=== PATIENT | female | born 1940 | race Caucasian/White ===

== ENCOUNTER → 2017-12-25 09:54 | Outpatient (BNVA) | payer MEDICARE, OTHER, SELFPAY | PROVIDERS: PCP Internal Medicine; Visit Provider Psychiatry & Neurology Neurology | DX: G40.909 Epilepsy, unspecified, not intractable, without status epilepticus (principal); M81.0 Age-related osteoporosis without current pathological fracture | CPT/HCPCS: 99213 ==

== ENCOUNTER → 2018-06-24 09:56 | Outpatient (BNVA) | payer MEDICARE, OTHER, SELFPAY | PROVIDERS: PCP Internal Medicine; Visit Provider Psychiatry & Neurology Neurology | DX: G40.909 Epilepsy, unspecified, not intractable, without status epilepticus (principal) | CPT/HCPCS: 99214 ==

== ENCOUNTER 2018-08-06 18:25 | Emergency (ER) | payer MEDICARE, OTHER, SELFPAY ==
[2018-08-06 18:37] VITALS: BP 131/85; PULSE 85; RESP 18; TEMP 36.8; O2SAT 95
--- NOTE | 2018-08-06 19:01 | W.ED.GENAD ---
Discharge Plan Disposition Patient Disposition: HOME Condition: Good Discharge Details Chief Complaint: Laceration Clinical Impression: Finger laceration Primary Care Provider: Nadya Bland ED Provider: Calvin Foreman Home Meds and New Rx's Prescriptions: No Action aspirin 81 mg tablet,chewable 81 mg PO DAILY RF: 0 alendronate [Fosamax] 70 mg tablet 70 mg PO QWEEK RF: 0 levetiracetam 750 mg tablet 750 mg PO BID Qty: 180 RF: 3 loratadine [Claritin] 10 MG tablet 10 mg PO DAILY RF: 0 sertraline 100 mg tablet 100 mg PO DAILY RF: 0 latanoprost 0.005 % Drops 1 drp ophthalmic (eye) HS RF: 0 Discharge Instructions Instructions: Care For Your Stitches (ED), Finger Laceration (ED) Additional Instructions: Please leave the dressing on for 24 hours, then you may remove and begin cleaning the wound at least twice a day with soap and water. Do not directly soak the area. Watch for any signs of infection and return if any increasing redness, swelling, pain, drainage. Please return in 7 to 10 days to have the sutures removed. If you notice any worsening of your symptoms, or any new symptoms such as vomiting, diarrhea, fever, chills, shortness of breath, chest pain, numbness, weakness, or fainting , please return immediately to the emergency department for reevaluation. Please follow up with your primary care provider as soon as possible for reassessment and reevaluation. As always, it was a pleasure participating in your medical care today. Referrals: Nadya Bland [Primary Care Provider] - Medical Decision Making This is a pleasant 78-year-old with a past medical history of seizures who presents today for evaluation after a mechanical fall. Patient fell and cut her right hand index finger with a 1 cm laceration and also hit her right breast. Physical exam demonstrates no bruising or significant abnormality of the chest. No clinical evidence of pneumothorax or severe rib fracture. No evidence of hematoma. Tetanus has been updated. Laceration is mild and superficial, with no evidence of tendon involvement, and she is neurovascularly intact distal to the site of laceration. The area was cleaned and irrigated with copious amounts of normal saline, chlorhexidine, and scrubbed appropriately and vigorously. The area was anesthetized with 2 mL's of 1% lidocaine without epinephrine the area was then sutured with 2 simple interrupted sutures using 5-0 nylon. Patient tolerated procedure well. Patient will be discharged home with close follow-up. We discussed red flags which return. No clinical evidence of fracture on exam with no significant bone or joint tenderness peer I have extensively reviewed the treatment plan and discharge instructions with the patient. I have addressed all patient concerns at this time. The patient was made aware of what symptoms to monitor for that would warrant a return to the emergency department. Discussed the plan with the patient, they demonstrate verbal understanding and agreement with our assessment and plan at this time. HPI General Date/Time Provider Initiated Documentation: 08/06/18 18:27. HPI Narrative: This is a pleasant 78-year-old female with a past medical history of epilepsy, not on any blood thinners who presents today for evaluation after a fall. Tetanus is not up-to-date. Patient states that she was walking, tripped and had a mechanical fall where she hit her right breast, as well as cutting right dominant hand on the middle finger. Patient denies any numbness or tingling in fingers she denies any difficulty moving it. She denies any chest pain, pleuritic chest pain, shortness of breath. She denies any cough, fever, chills. She did not hit her head. She denies any headache, vision changes. She has no other complaints at this time. No other modifying factors. She denies having any seizure. Related Data Home Medications Medication Instructions Recorded Confirmed loratadine [Claritin] 10 mg PO DAILY tab-cap 09/13/17 08/06/18 alendronate 70 mg tablet 70 mg PO QWEEK 12/25/17 08/06/18 aspirin 81 mg chewable tablet 81 mg PO DAILY 12/25/17 08/06/18 sertraline 100 mg tablet 100 mg PO DAILY tab 12/25/17 08/06/18 levetiracetam 750 mg tablet 750 mg PO BID #180 tab 06/24/18 08/06/18 latanoprost 1 drp OPHTHALMIC (EYE) HS 08/06/18 08/06/18 Previous Rx's Medication Instructions Recorded levetiracetam 750 mg tablet 750 mg PO BID #180 tab 06/24/18 Allergies Allergy/AdvReac Type Severity Reaction Status Date / Time chlorpromazine HCl Allergy Unverified 08/06/18 18:41 [From Thorazine] penicillin Allergy Unverified 08/06/18 18:41 General Stated Complaint: Laceration ANITHA: 3 Review of Systems Review of Systems All systems reviewed & are unremarkable except as noted in HPI and below PFSH Social History Smoking/Tobacco Use Status: Never Alcohol Intake: never Drug use: Never Substance use type: does not use Number of Children: 1 Do you feel safe in your relationship?: Yes Additional Social history: She has one son. Niece Rupinder often helps/involved. No smoking, ETOH, or illicit drug use. Exam Narrative Exam Narrative: 1.Const: Well-nourished, Well-developed, appearing stated age 2.Eyes: PERRL, no conjunctival injection, and symmetrical lids. 3.ENT: Atraumatic external nose and ears. Moist MM. Neck: Symmetric, trachea midline, No thyromegaly. There is no evidence of raccoon eyes, jones sign, CSF rhinorrhea, mastoid tenderness, cranial crepitus, hemotympanum, exophthalmos, or hyphema. Patient demonstrates intact dentition with no signs of tooth avulsion or fracture, no signs of jaw deformity, no evidence of a LeFort's fracture, with an intact palate, nose and orbital region. There is no evidence of a nasal septal hematoma. No proptosis. Jaw closes symmetrically. Airway is clear. 4.CVS: +S1/S2, No murmurs or gallops. Peripheral pulses 2+ and equal in all extremities. Brisk capillary refill in all extremities. 5.RESP: Airway clear, no obstructions. No abrasions or ecchymosis. Chest movement symmetric with respirations. No chest wall tenderness. Trachea midline. No crepitus. No step offs. No paradoxical movements. Lungs are clear to auscultation bilaterally. No rales, rhonchi, wheezing or stridor. Breath sound symmetric. No Sucking chest wounds. No clinical evidence of significant chest trauma. 6.GI: Soft, Nontender/Nondistended, No hepatosplenomegaly. No guarding or rebound. 7.MSK: Normocephalic/Atraumatic, Extremities w/o deformity or ttp No cyanosis or clubbing, Normal movement of all extremities focused right ankle symmetrically palpable radial and ulnar pulses. Capillary refill less than 2 seconds to all digits. Intact sensation to light touch of the radial, median and ulnar nerves demonstrated by testing in the dorsal web space of the thumb, the distal palmar aspect of the index finger, and the lateral surface of the fifth finger. 2 point discrimination intact to 5mm (up to 6mm can be normal in digits 3-5) of discrimination in the affected digit. 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 Intact recurrent median nerve as demonstrated by ability to move thumb fully through opposition, abduction and flexion. No snuffbox tenderness. 8.Skin: Warm, Dry. Small 1 cm linear laceration on the lateral aspect of her middle finger between the interphalangeal joint and the DIP joint. No evidence of tendon involvement. No active bleeding. 9.Neuro: documentation liaison II-XII grossly intact. Sensation grossly intact, no focal neurologic deficits. 10.Psych: (AAO) x3. Appropriate mood and affect Course Vital Signs Temperature 36.8 C 08/06/18 18:37 Pulse 85 08/06/18 18:37 Respiratory Rate 18 08/06/18 18:37 Blood Pressure 131/85 08/06/18 18:37 Pulse Oximetry 95 08/06/18 18:37 Temperature 36.8 C 08/06/18 18:37 Temperature Source Temporal Artery Scan 08/06/18 18:37 Pulse 85 08/06/18 18:37 Respiratory Rate 18 08/06/18 18:37 Respiratory Effort Non-Labored 08/06/18 18:43 Blood Pressure 131/85 08/06/18 18:37 Blood Pressure Position Sitting 08/06/18 18:37 Pulse Oximetry 95 08/06/18 18:37 Oxygen Delivery Method Room Air 08/06/18 18:37 Oxygen Flow Rate 0 08/06/18 18:37 Pain Level 7 08/06/18 18:37
== END 2018-08-06 19:13 | disposition home or self-care (01) ==
PROVIDERS: Emergency Provider Student in an Organized Health Care Education/Training Program; PCP Internal Medicine
DX: S61.210A Laceration without foreign body of right index finger without damage to nail, initial encounter (principal); W01.0XXA Fall on same level from slipping, tripping and stumbling without subsequent striking against object, initial encounter
CPT/HCPCS: 12001; 90471

== ENCOUNTER 2018-08-12 12:39 | Emergency (ER) | payer MEDICARE, SELFPAY ==
[2018-08-12 12:42] VITALS: BP 145/81; PULSE 76; RESP 18; TEMP 37; O2SAT 96
--- NOTE | 2018-08-12 13:18 | ED.GENADUL_ITS ---
Discharge Plan Disposition Patient Disposition: HOME Condition: Good Discharge Details Chief Complaint: GenMedical Clinical Impression: Visit for suture removal Primary Care Provider: Nadya Bland ED Provider: Jai Mistry Meds and New Rx's Prescriptions: Continued aspirin 81 mg tablet,chewable 81 mg PO DAILY RF: 0 alendronate [Fosamax] 70 mg tablet 70 mg PO QWEEK RF: 0 levetiracetam 750 mg tablet 750 mg PO BID Qty: 180 RF: 3 loratadine [Claritin] 10 MG tablet 10 mg PO DAILY RF: 0 sertraline 100 mg tablet 100 mg PO DAILY RF: 0 latanoprost 0.005 % Drops 1 drp ophthalmic (eye) HS RF: 0 Discharge Instructions Additional Instructions: Continue to keep the area clean and use antibiotic ointment until completely healed. Return if any signs of infection. Referrals: [facility] [Provider Group] Medical Decision Making 2 sutures removed. Wound has healed nicely. Patient is discharged home to return to ED if any problems or signs of infection. HPI General Mode of arrival: ambulatory . Date/Time Provider Initiated Documentation: 08/12/18 13:06 . Limitations to Documentation: no limitations . Information obtained by: patient . HPI Narrative: Patient presents for suture removal. She was seen here on the with a laceration to the right finger. It has healed well. She has no complaints. There is no pain, redness, drainage, numbness. Related Data Home Medications Medication Instructions Recorded Confirmed loratadine [Claritin] 10 mg PO DAILY tab-cap 09/13/17 08/06/18 alendronate 70 mg tablet 70 mg PO QWEEK 12/25/17 08/06/18 aspirin 81 mg chewable tablet 81 mg PO DAILY 12/25/17 08/06/18 sertraline 100 mg tablet 100 mg PO DAILY tab 12/25/17 08/06/18 levetiracetam 750 mg tablet 750 mg PO BID #180 tab 06/24/18 08/06/18 latanoprost 1 drp OPHTHALMIC (EYE) HS 08/06/18 08/06/18 Previous Rx's Medication Instructions Recorded levetiracetam 750 mg tablet 750 mg PO BID #180 tab 06/24/18 Allergies Allergy/AdvReac Type Severity Reaction Status Date / Time chlorpromazine HCl Allergy Unverified 08/06/18 18:41 [From Thorazine] penicillin Allergy Unverified 08/06/18 18:41 General Stated Complaint: GenMedical ANITHA: 5 Review of Systems Constitutional Denies fever(s) Integumentary/Breasts Denies erythema and Reports wounds [facility] Medical History History of pulmonary embolism (Chronic) Osteoporosis (Chronic) Mild cognitive impairment (Chronic) Glaucoma (Chronic) Depression with anxiety (Chronic) Epilepsy (Acute 06/09/15) Surgical History History of carpal tunnel release (Acute) History of repair of hiatal hernia (Acute) S/P cholecystectomy (Acute) Social History Smoking/Tobacco Use Status: Never Alcohol Intake: never Drug use: Never Substance use type: does not use Number of Children: 1 Do you feel safe at home: No Do you feel safe in your relationship?: Yes Additional Social history: She has one son. Niece Rupinder often helps/involved. No smoking, ETOH, or illicit drug use. Pt is living at [facility] and is feeling unsafe due to neighbors being loud and pounding on goodman and doors. Exam Const General: cooperative, comfortable and no acute distress Skin Trauma: laceration (Laceration on finger has completely healed. No infection.) Extrem Other: Normal motor function and sensory of the right hand. No deficit related to the laceration. Course Vital Signs Temperature 98.6 F 08/12/18 12:42 Pulse 76 08/12/18 12:42 Respiratory Rate 18 08/12/18 12:42 Blood Pressure 145/81 H 08/12/18 12:42 Pulse Oximetry 96 08/12/18 12:42 Temperature 98.6 F 08/12/18 12:42 Pulse 76 08/12/18 12:42 Respiratory Rate 18 08/12/18 12:42 Respiratory Effort 08/12/18 12:42 Blood Pressure 145/81 H 08/12/18 12:42 Pulse Oximetry 96 08/12/18 12:42 Oxygen Delivery Method Room Air 08/12/18 12:42 Oxygen Flow Rate 0 08/12/18 12:42 Pain Level 0 08/12/18 12:42
== END 2018-08-12 13:50 | disposition home or self-care (01) ==
PROVIDERS: Emergency Provider Emergency Medicine; PCP Internal Medicine
DX: S61.212D Laceration without foreign body of right middle finger without damage to nail, subsequent encounter (principal); X58.XXXD Exposure to other specified factors, subsequent encounter; Z48.02 Encounter for removal of sutures

== ENCOUNTER → 2018-09-16 11:00 | Outpatient (BNVA) | payer MEDICARE, SELFPAY | PROVIDERS: PCP Internal Medicine; Visit Provider Psychiatry & Neurology Neurology | DX: G40.909 Epilepsy, unspecified, not intractable, without status epilepticus (principal); G31.84 Mild cognitive impairment of uncertain or unknown etiology; F41.8 Other specified anxiety disorders | CPT/HCPCS: 99214 ==

== ENCOUNTER 2018-10-28 06:08 | Emergency (ER) | payer MEDICARE, OTHER, SELFPAY ==
[2018-10-28 06:20] VITALS: BP 132/72; PULSE 58; RESP 20; TEMP 36.6; O2SAT 96
[2018-10-28] MEDS: Meclizine 25 MG TAB (06:39)
--- NOTE | 2018-10-28 06:43 | W.ED.GENAD ---
Discharge Plan Disposition Patient Disposition: HOME Condition: Good Discharge Details Chief Complaint: Dizzy/Sync Clinical Impression: Peripheral vertigo Primary Care Provider: Nadya Bland ED Provider: Calvin Foreman Home Meds and New Rx's Prescriptions: New meclizine 25 mg tablet 25 mg PO TID Qty: 14 RF: 0 No Action aspirin 81 mg tablet,chewable 81 mg PO DAILY RF: 0 alendronate [Fosamax] 70 mg tablet 70 mg PO QWEEK RF: 0 levetiracetam 750 mg tablet 750 mg PO BID Qty: 180 RF: 3 loratadine [Claritin] 10 MG tablet 10 mg PO DAILY RF: 0 sertraline 100 mg tablet 100 mg PO DAILY RF: 0 latanoprost 0.005 % Drops 1 drp ophthalmic (eye) HS RF: 0 Discharge Instructions Instructions: Benign Paroxysmal Positional Vertigo (ED) Additional Instructions: You have peripheral vertigo. Please drink plenty of water every day, please take the meclizine as directed. If you notice any worsening of your symptoms, or any new symptoms such as vomiting, diarrhea, fever, chills, shortness of breath, chest pain, numbness, weakness, or fainting , please return immediately to the emergency department for reevaluation. Please follow up with your primary care provider as soon as possible for reassessment and reevaluation. As always, it was a pleasure participating in your medical care today. Referrals: Nadya Bland [Primary Care Provider] - Medical Decision Making 78-year-old female with a past medical history of osteoporosis, as well as seizures for which she takes Keppra but slight seizures for years, presents today for evaluation of dizziness. She woke up this morning and felt fine, however when she sat up quickly turned her head she noticed significant room spinning sensation. She denies any tinnitus. Physical exam demonstrates no concerning cerebellar events, ambulation is stable. She does have notable right-sided horizontal nystagmus that is fatigable. A positive head impulse test. Negative test of skew. Signs and symptoms are clinically consistent with peripheral vertigo. Symptoms made worse with Tati-Hallpike maneuver. Patient was given a 250 cc bolus, in conjunction with Zofran and meclizine. Patient is feeling much better at this time. Signs and symptoms are consistent with a peripheral etiology and inconsistent with a central etiology no clinical evidence of stroke. Patient will be discharged home. I have extensively reviewed the treatment plan and discharge instructions with the patient. I have addressed all patient concerns at this time. The patient was made aware of what symptoms to monitor for that would warrant a return to the emergency department. Discussed the plan with the patient, they demonstrate verbal understanding and agreement with our assessment and plan at this time. EKG 09/07/2013 Rate 62, intervals normal, sinus rhythm, no significant ST elevations or depressions, there is a T wave inversion in V1. No Q waves. HPI General Date/Time Provider Initiated Documentation: 10/28/18 06:43. HPI Narrative: This is a 78-year-old female with a past medical history of osteoporosis, epilepsy on Keppra, and daily aspirin. She has no history of stroke. She presents today for evaluation of dizziness. She states that this morning when she woke up she felt okay when she sat up quickly she became notably dizzy with room spinning sensation. She denies any tinnitus. She denies any headache, chest pain, shortness of breath, syncope or near syncope. She denies any numbness tingling or weakness or history of stroke. She has no other complaints at this time. She has had an episode like this in the distant past. Of note she feels that it has been hot and she has not been drinking much fluids lately. Related Data Home Medications Medication Instructions Recorded Confirmed loratadine [Claritin] 10 mg PO DAILY tab-cap 09/13/17 09/16/18 alendronate 70 mg tablet 70 mg PO QWEEK 12/25/17 09/16/18 aspirin 81 mg chewable tablet 81 mg PO DAILY 12/25/17 09/16/18 sertraline 100 mg tablet 100 mg PO DAILY tab 12/25/17 09/16/18 levetiracetam 750 mg tablet 750 mg PO BID #180 tab 06/24/18 09/16/18 latanoprost 1 drp OPHTHALMIC (EYE) HS 08/06/18 09/16/18 meclizine 25 mg PO TID #14 tab 10/28/18 Previous Rx's Medication Instructions Recorded levetiracetam 750 mg tablet 750 mg PO BID #180 tab 06/24/18 meclizine 25 mg PO TID #14 tab 10/28/18 Allergies Allergy/AdvReac Type Severity Reaction Status Date / Time chlorpromazine HCl Allergy Unverified 09/16/18 11:21 [From Thorazine] penicillin Allergy Unverified 09/16/18 11:21 General Stated Complaint: Dizzy/Sync ANITHA: 5 Review of Systems Review of Systems All systems reviewed & are unremarkable except as noted in HPI and below PFSH Social History Smoking/Tobacco Use Status: Never Alcohol Intake: never Drug use: Never Substance use type: does not use Number of Children: 1 Do you feel safe at home: No Do you feel safe in your relationship?: Yes Additional Social history: She has one son. Niece Rupinder often helps/involved. No smoking, ETOH, or illicit drug use. Pt is living at [facility] and is feeling unsafe due to neighbors being loud and pounding on goodman and doors. Exam Narrative Exam Narrative: 1.Const: Well-nourished, Well-developed, appearing stated age 2.Eyes: PERRL, no conjunctival injection, and symmetrical lids. 3.ENT: Atraumatic external nose and ears. Moist MM. Neck: Symmetric, trachea midline, No thyromegaly. 4.CVS: +S1/S2, No murmurs or gallops. Peripheral pulses 2+ and equal in all extremities. Brisk capillary refill in all extremities. 5.RESP: Unlabored respiratory effort. Clear to auscultation bilaterally. No wheezes rales or rhonchi 6.GI: Soft, Nontender/Nondistended, No hepatosplenomegaly. No guarding or rebound. 7.MSK: Normocephalic/Atraumatic, Extremities w/o deformity or ttp No cyanosis or clubbing, Normal movement of all extremities 8.Skin: Warm, Dry. No rashes or lesions. 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 Sensation grossly intact, no focal neurologic deficits. All 6 cardinal planes of vision are fully intact. No evidence of rotatory or vertical nystagmus. The patient demonstrated a normal [id number], good dexterity. There was no evidence of dysdiadochokinesia. Patient was able to ambulate without difficulty. There was no wide-based gait. Romberg, and [id number] are both normal on testing. Sensation was intact bilaterally as well as muscle strength bilaterally for all extremities. Patient was able to verbalize butter cup with no slurring, or miss pronunciation. Cerebellar function testing is normal. The patient demonstrates a normal hints exam with no findings concerning for a central event. No vertical nystagmus. The patient does have mild to moderate horizontal nystagmus, worsened on the right. It is fatigable. the head impulse test is negative for any significant central abnormality, however she does have notable positivity with movement to the right, suggestive of a peripheral etiology. Normal test of skew. No suggestion of a central cerebellar event. Signs and symptoms are consistent with peripheral vertigo 10.Psych: (AAO) x3. Appropriate mood and affect Course Vital Signs Temperature 36.6 C 10/28/18 06:20 Pulse 58 L 10/28/18 06:20 Respiratory Rate 20 10/28/18 06:20 Blood Pressure 132/72 10/28/18 06:20 Pulse Oximetry 96 10/28/18 06:20 Temperature 36.6 C 10/28/18 06:20 Temperature Source Temporal Artery Scan 10/28/18 06:20 Pulse 58 L 10/28/18 06:20 Respiratory Rate 20 10/28/18 06:20 Respiratory Effort 10/28/18 06:20 Blood Pressure 132/72 10/28/18 06:20 Blood Pressure Position Supine 10/28/18 06:20 Pulse Oximetry 96 10/28/18 06:20 Oxygen Delivery Method Room Air 10/28/18 06:20 Oxygen Flow Rate 0 10/28/18 06:20
[2018-10-28 07:20] VITALS: BP 138/70; PULSE 61; RESP 16; TEMP 36.6; O2SAT 96
== END 2018-10-28 07:20 | disposition home or self-care (01) ==
LOC: ER 07:17
PROVIDERS: Emergency Provider Student in an Organized Health Care Education/Training Program; PCP Internal Medicine
DX: H81.391 Other peripheral vertigo, right ear (principal); G43.909 Migraine, unspecified, not intractable, without status migrainosus
CPT/HCPCS: 93005; 99283; 93010; J2405

== ENCOUNTER 2018-12-08 13:15 | Emergency (ER) | payer MEDICARE, OTHER, SELFPAY ==
[2018-12-08 13:19] VITALS: BP 153/86; PULSE 66; RESP 16; TEMP 36.6; O2SAT 94
--- NOTE | 2018-12-08 13:33 | DI.RAD_ITS ---
SYMPTOMS/DIAGNOSIS: ANTERIOR LOWER CHEST PAIN S/P FALL PA AND LATERAL CHEST: Comparison is made with April,. The heart size is normal. The aorta shows some calcification and tortuosity. The lungs are suboptimally inflated. There is a question of some small areas of bilateral patchy density, nonspecific. No pneumothorax or acute rib fracture is seen. There are degenerative changes of the thoracic spine. IMPRESSION: Questionable bilateral pulmonary densities. A follow-up exam could be considered. No pneumothorax is seen.
--- NOTE | 2018-12-08 13:35 | W.ED.GENAD ---
Discharge Plan Disposition Patient Disposition: HOME Discharge Details Chief Complaint: Chest/Rib Clinical Impression: Bilateral contusion of ribs, Fall in elderly patient, Contusion of both lungs Primary Care Provider: Nadya Bland ED Provider: Luigi Mike Home Meds and New Rx's Prescriptions: Continued aspirin 81 mg tablet,chewable 81 mg PO DAILY RF: 0 alendronate [Fosamax] 70 mg tablet 70 mg PO QWEEK RF: 0 levetiracetam 750 mg tablet 750 mg PO BID Qty: 180 RF: 3 loratadine [Claritin] 10 MG tablet 10 mg PO DAILY RF: 0 sertraline 100 mg tablet 100 mg PO DAILY RF: 0 latanoprost 0.005 % Drops 1 drp ophthalmic (eye) HS RF: 0 Discharge Instructions Instructions: Fall Prevention for Older Adults (ED), Rib Contusion (ED) Additional Instructions: Please take acetaminophen (tylenol) - 650mg every 6 hours by mouth as needed for pain. Please contact your primary care physician to arrange follow-up. Call sunday. Return to the ER immediately for any worsening or new concerning symptoms. Referrals: Nadya Bland [Primary Care Provider] - Discharge Data Discharge Date/Time-TO BE ENTERED AT DEPARTURE: 12/08/18 14:52 Medical Decision Making 13:40 --78-year-old female presents after mechanical fall having landed in a prone position with discomfort anterior lower ribs. Patient had mild posterior head impact when she rolled over to a supine position and bumped the back of her head on the ground. She did not lose consciousness and has no headache at this time. Patient has focal tenderness over her lower anterior ribs bilaterally. Abdominal exam is benign. Consider rib fracture versus rib contusion. Will obtain chest x-ray to rule out pneumothorax although lung sounds are clear bilaterally. 14:28 --chest x-ray interpreted by radiology: Patchy bilateral lung opacities, probable atelectasis, contusion is considered unlikely. Patient is remained stable here on reassessment. Usual and customary discharge instructions provided for chest wall contusion. HPI General Mode of arrival: ambulatory. Date/Time Provider Initiated Documentation: 12/08/18 13:22. Limitations to Documentation: no limitations. Information obtained by: patient. HPI Narrative: 78-year-old female presents with chief complaint of chest pain. Patient tripped on a rug at home fell forward and landed on her anterior chest. After she fell she did roll over and bumped the back of her head on the ground. She did not lose consciousness has no headache. Patient is not on any anticoagulants. Her chief complaint here is anterior bilateral lower rib pain. Pain is moderate. Worse on palpation of her lower ribs. She denies associated abdominal pain. Related Data Home Medications Medication Instructions Recorded Confirmed loratadine [Claritin] 10 mg PO DAILY tab-cap 09/13/17 12/08/18 alendronate 70 mg tablet 70 mg PO QWEEK 12/25/17 12/08/18 aspirin 81 mg chewable tablet 81 mg PO DAILY 12/25/17 12/08/18 sertraline 100 mg tablet 100 mg PO DAILY tab 12/25/17 12/08/18 levetiracetam 750 mg tablet 750 mg PO BID #180 tab 06/24/18 12/08/18 latanoprost 1 drp OPHTHALMIC (EYE) HS 08/06/18 12/08/18 Previous Rx's Medication Instructions Recorded levetiracetam 750 mg tablet 750 mg PO BID #180 tab 06/24/18 Allergies Allergy/AdvReac Type Severity Reaction Status Date / Time chlorpromazine HCl Allergy Unverified 12/08/18 13:21 [From Thorazine] penicillin Allergy Unverified 12/08/18 13:21 General Stated Complaint: Chest/Rib ANITHA: 3 Review of Systems Constitutional Denies headache(s) ENT Denies headache(s) Cardiovascular Denies syncope and Denies dyspnea Respiratory Denies dyspnea Gastrointestinal Denies abdominal pain and Denies nausea Musculoskeletal Reports as per HPI Neurologic Denies syncope and Denies headache(s) [facility] Medical History Depression with anxiety (Chronic) Epilepsy (Acute 06/09/15) Glaucoma (Chronic) History of pulmonary embolism (Chronic) s/p Eliquis [id number]. Mild cognitive impairment (Chronic) Osteoporosis (Chronic) Surgical History History of carpal tunnel release (Acute) right History of repair of hiatal hernia (Acute) S/P cholecystectomy (Acute) Family History Father Heart disease Mother Breast cancer Social History Smoking/Tobacco Use Status: Never Alcohol Intake: never Drug use: Never Substance use type: does not use Number of Children: 1 Do you feel safe at home: Yes Do you feel safe in your relationship?: Yes Additional Social history: She has one son. Niece Rupinder often helps/involved. No smoking, ETOH, or illicit drug use. Pt is living at [facility] and is feeling unsafe due to neighbors being loud and pounding on goodman and doors. Exam Const General: cooperative and no acute distress HENMT Head: normocephalic and atraumatic Mouth: moist mucous membranes Eyes Conjunctivae: normal conjunctivae Sclera: normal sclerae EOM: EOM intact bilaterally Neck Neck: full ROM, trachea midline, supple and nontender Chest Chest: no crepitus and localized rib tenderness with anteroposterior compression (bilateral lower anterior) Resp Auscultation: clear to auscultation bilaterally, no rales, no rhonchi and no wheezes Cardio Jugular venous pressure: no JVD Rate: regular rate and not tachycardic Rhythm: regular rhythm GI Palpation: soft, not firm, no guarding, no masses, not rigid and nontender Auscultation: normal bowel sounds Back/Spine/Pelvis Cervical Spine: cervical ROM normal and No cervical spinal tenderness Thoracic/Lumbar Spine: thoracic and lumbar spine normal to inspection Pelvis: no pain with lateral compression Skin General skin exam: no rashes or lesions noted Neuro General: alert, awake, oriented x3 and tone normal Extrem General: no edema Right lower extremity: hip/thigh Details: normal ROM; no tenderness Left lower extremity: hip/thigh Details: normal ROM; no tenderness Psych Mental Status: mental status grossly normal Course Vital Signs Temperature 36.6 C 12/08/18 13:19 Pulse 66 12/08/18 13:19 Respiratory Rate 16 12/08/18 13:19 Blood Pressure 153/86 H 12/08/18 13:19 Pulse Oximetry 94 L 12/08/18 13:19 Temperature 36.6 C 12/08/18 13:19 Temperature Source Temporal Artery Scan 12/08/18 13:19 Pulse 66 12/08/18 13:19 Respiratory Rate 16 12/08/18 13:19 Respiratory Effort Non-Labored 12/08/18 13:26 Respiratory Depth Normal 12/08/18 13:23 Blood Pressure 153/86 H 12/08/18 13:19 Blood Pressure Position Supine 12/08/18 13:19 Pulse Oximetry 94 L 12/08/18 13:19 Oxygen Delivery Method Room Air 12/08/18 13:19 Oxygen Flow Rate 0 12/08/18 13:19 Pain Level 9 12/08/18 13:23
[2018-12-08] MEDS: Acetaminophen 325 MG TAB 650 MG PO (13:42)
--- NOTE | 2018-12-08 14:23 | DI.VRAD_ITS ---
EXAM: XR Chest, 2 Views EXAM DATE/TIME: 12/08/2018 1:34 PM CLINICAL HISTORY: 78 years old, female; Patient HX: Fall, anterior chest pain TECHNIQUE: Imaging protocol: XR of the chest, 2 views. COMPARISON: CR CHEST 2 VIEWS PA,LAT 04/23/2017 7:54 AM FINDINGS: Lungs: Unremarkable. No consolidation. Pleural space: Unremarkable. No pleural effusion. No pneumothorax. Heart/Mediastinum: Cardiomegaly. There some hazy increased parenchymal markings at the right mid to lower lung level laterally at the left suprahilar level. Vasculature: Aortic ectasia noted, unchanged. Bones/joints: Moderate thoracic spondylosis again noted. IMPRESSION: Patchy bilateral lung opacities, probable atelectasis. Contusion is considered unlikely. COMMENT: Preliminary interpretation is based on receipt of 2 image(s). A final report will be issued subsequently. Dictated and Authenticated by: Mckenna Guerin MD. Ordering:STEPHANIE Meyers MD
[2018-12-08 14:50] VITALS: BP 153/86; PULSE 66; RESP 16; TEMP 36.6; O2SAT 94
== END 2018-12-08 14:52 | disposition home or self-care (01) ==
LOC: ER 14:20
PROVIDERS: Emergency Provider Student in an Organized Health Care Education/Training Program; PCP Internal Medicine
DX: S20.211A Contusion of right front wall of thorax, initial encounter (principal); S20.212A Contusion of left front wall of thorax, initial encounter; S27.322A Contusion of lung, bilateral, initial encounter; W01.0XXA Fall on same level from slipping, tripping and stumbling without subsequent striking against object, initial encounter
CPT/HCPCS: 99283; 71046

== ENCOUNTER → 2019-02-24 14:26 | Outpatient (BNVA) | payer MEDICARE, OTHER, SELFPAY | PROVIDERS: PCP Internal Medicine; Referring Provider Internal Medicine; Visit Provider Psychiatry & Neurology Neurology | DX: G40.909 Epilepsy, unspecified, not intractable, without status epilepticus (principal); F41.8 Other specified anxiety disorders; G47.00 Insomnia, unspecified; G31.84 Mild cognitive impairment of uncertain or unknown etiology; M81.0 Age-related osteoporosis without current pathological fracture | CPT/HCPCS: 99213 ==

== ENCOUNTER 2019-04-16 09:24 | Inpatient (IN) | payer MEDICARE, OTHER, SELFPAY ==
[2019-04-16] VITALS (30 sets, daily range): BP systolic 102–154; BP diastolic 55–131; PULSE 53–70; RESP 16–19; TEMP 36.1–36.6; O2SAT 91–98
--- NOTE | 2019-04-16 09:35 | W.ED.GENAD ---
Discharge Plan Disposition Patient Disposition: [facility] INPATIENT Condition: Improving Discharge Details Chief Complaint: Orthopedic Clinical Impression: Bimalleolar fracture of right ankle Admit Date/Time: 04/16/19 18:23 Admit Provider: Enoch Bryant Attending Provider: Enoch Bryant Primary Care Provider: Nadya Bland ED Provider: Stu Gannon Discharge Data Discharge Date/Time-TO BE ENTERED AT DEPARTURE: 04/16/19 19:09 Medical Decision Making <Stu Gannon MD - Last Filed: 04/21/19 08:22> 78-year-old female who slipped descending from a large pickup truck, deviated to her right ankle forcefully and now has significant pain and distal tibia swelling. She has normal motor and sensory function, the dorsalis pedis pulses normal. Ice placed, patient referred for x-ray. She has a bimalleolar fracture with several millimeters of diastasis. Discussed with Dr Braun, who saw the patient in consultation, performed a closed reduction at the bedside and will follow-up with the patient in clinic. She is to be partial weightbearing with crutches. Patient initially unable to successfully use crutches. She felt weak and dizzy. She rested, was observed for 2 hours, ate a meal, was reevaluated by physical therapy and unable to ambulate with either a walker or crutches. As she lives independently in her own apartment on the fifth story with required use of an elevator and entrance ramp building. Discussed with Dr. Braun, he recommends admission with repeat PT/OT evaluation in the morning. As there is no acute surgical problem, he feels she is best served by admission to the hospitalist service. <YADIEL Chaidez - Last Filed: 04/16/19 23:37> Is have decided of the 78-year-old patient with a bimalleolar fracture his fracture is been managed by orthopedics and splinted appropriately however patient is having difficulty ambulating. Due to patient's difficulty ambulating and concern of fall risk physical therapy evaluation was performed prior to patient being discharged home as there was safety concerns at home. Patient does live alone. Physical therapy reports patient is unfit to transfer and unsafe for discharge home at this time. commercial property manager attempted to place patient in rehab but given her return she is qualified for direct placement in rehab. They recommended admission to the hospital until able to find a safe disposition plan. Discussed with the hospitalist who accepts patient's admission at this time. HPI <Stu Gannon MD - Last Filed: 04/21/19 08:22> General Mode of arrival: EMS. Date/Time Provider Initiated Documentation: 04/16/19 09:31. Limitations to Documentation: no limitations. Information obtained by: patient. History of Present Illness 78 year old F presents to the emergency department with the chief complaint of Slipped getting out of truck, ankle deviation and pain, described as moderate, Quality is described as dull and constant, and is localized to the right and lower extremity. Patient reports no radiation. Patient started experiencing this minute(s) and it has been constant. Rest improves symptom(s), Movement worsens symptoms . Patient notes no other symptoms.; denies headaches and syncope. Patient did receive the following treatments prior to arrival, cold therapy Related Data Home Medications Medication Instructions Recorded Confirmed loratadine [Claritin] 10 mg PO DAILY tab-cap 09/13/17 04/18/19 alendronate 70 mg tablet 70 mg PO QWEEK 12/25/17 04/18/19 aspirin 81 mg chewable tablet 81 mg PO DAILY 12/25/17 04/18/19 sertraline 100 mg tablet 100 mg PO DAILY tab 12/25/17 04/18/19 latanoprost 1 drp OPHTHALMIC (EYE) HS 08/06/18 04/18/19 levetiracetam 750 mg tablet 750 mg PO BID #180 tab 02/24/19 04/18/19 Previous Rx's Medication Instructions Recorded levetiracetam 750 mg tablet 750 mg PO BID #180 tab 02/24/19 Allergies Allergy/AdvReac Type Severity Reaction Status Date / Time chlorpromazine HCl Allergy Unverified 04/16/19 09:28 [From Thorazine] penicillin Allergy Unverified 04/16/19 09:28 General Stated Complaint: Orthopedic ANITHA: 4 Review of Systems <Stu Gannon MD - Last Filed: 04/21/19 08:22> Narrative: No other injury. Ate breakfast at 730. States she is otherwise well. No head/neck/back/chest/abdominal pain. 6 systems reviewed and otherwise negative PFSH <Stu Gannon MD - Last Filed: 04/21/19 08:22> Medical History Depression with anxiety (Chronic) Epilepsy (Acute 06/09/15) Glaucoma (Chronic) History of pulmonary embolism (Chronic) s/p Eliquis [id number]. Mild cognitive impairment (Chronic) Osteoporosis (Chronic) Surgical History History of carpal tunnel release (Acute) right History of repair of hiatal hernia (Acute) S/P cholecystectomy (Acute) Family History Father Heart disease Mother Breast cancer Social History Smoking/Tobacco Use Status: Never Alcohol Intake: never Drug use: Never Substance use type: does not use Number of Children: 1 Do you feel safe at home: Yes Do you feel safe in your relationship?: Yes Additional Social history: She has one son. Niece Rupinder often helps/involved. No smoking, ETOH, or illicit drug use. Pt is living at [facility] and is feeling unsafe due to neighbors being loud and pounding on goodman and doors. Exam <Stu Gannon MD - Last Filed: 04/21/19 08:22> Narrative Exam Narrative: GEN: awake, alert, oriented 3. Pleasant, well groomed, interactive. HEAD: Normocephalic, atraumatic ENT: Mucous membranes moist, oropharynx unremarkable, External ear exam unremarkable EYES: PERRL, EOMI NECK: Full ROM, no BRENDA, no menigismus CHEST/RESP: Nontender, no respiratory distress ABDOMEN: Soft, nontender, no mass. +Bowel sounds EXT: The right ankle is swollen, tender primarily medially, the right foot is slightly externally rotated. Distal motion is intact, sensation intact throughout, 2+ DP bilaterally. Neuro: Grossly normal neurologic exam, conversant, interactive. Psych: Speech fluent, thoughts congruent, affect normal Course <Stu Gannon MD - Last Filed: 04/21/19 08:22> Vital Signs Vital signs: Vital Signs Temperature 36.6 C 04/16/19 09:25 Pulse 69 04/16/19 09:25 Respiratory Rate 16 04/16/19 09:25 Blood Pressure 142/83 H 04/16/19 09:25 Pulse Oximetry 94 L 04/16/19 09:25 Temperature 36.6 C 04/16/19 09:25 Temperature Source Temporal Artery Scan 04/16/19 09:25 Pulse 69 04/16/19 09:25 Respiratory Rate 16 04/16/19 09:25 Respiratory Effort Non-Labored 04/16/19 09:27 Blood Pressure 142/83 H 04/16/19 09:25 Blood Pressure Position Supine 04/16/19 09:25 Pulse Oximetry 94 L 04/16/19 09:25 Oxygen Delivery Method Room Air 04/16/19 09:25 Oxygen Flow Rate 0 04/16/19 09:25 Pain Level 8 04/16/19 09:25
--- NOTE | 2019-04-16 10:00 | DI.RAD_ITS ---
EXAM: XR ANKLE RT COMPLETE INDICATION: Fall, medial pain and swelling. COMPARISON: No exams were available for comparison TECHNIQUE: 2D digital imaging was performed. FINDINGS: There is edema around the malleoli. The bones appear osteoporotic. There is an oblique fracture thr ough the lateral malleolus which is mildly displaced and extends to the level of the ankle mortise. There is a transverse fracture through the medial malleolus which shows several millimeters of separ ation as well as lateral displacement. There is widening of the ankle mortise. No talar dome defect is seen. A plantar calcaneal spur is incidentally noted. IMPRESSION: Bimalleolar fracture.
--- NOTE | 2019-04-16 10:04 | DI.RAD_ITS ---
EXAM: XR KNEE RT 2V AP,LAT INDICATION: Distal tibia pain and swelling. COMPARISON: No exams were available for comparison TECHNIQUE: 2D digital imaging was performed. FINDINGS: No fracture or joint effusion is seen. There are mild degenerative changes. IMPRESSION: No acute abnormality.
--- NOTE | 2019-04-16 13:22 | OCONE_ITS ---
Date of service: 04/16/19 Time of Service: 13:23 History of Present Illness History of Present Illness Chief Complaint: Right ankle pain Narrative: Chief Complaint: Right ankle pain HPI: 78-year-old female status post slip and [place] with immediate sudden onset right ankle swelling and pain. Limi diane ability to bear weight. Evaluated emergency room as she thought she had a sprain possibly break. Denies any pre-existing ankle symptoms. Describes walking regularly without difficulty with her lower extremities. PMH: Significant history of PE and epilepsy diabetes: Denies allergies: Penicillin and Thorazine FH: non-contributory SH: [facility] [place] [facility] with elevator hand dominance: Right occupation: Retired smoke cigarettes: No Consult Reason Displaced right bimalleolar ankle fracture evaluation management Assessment and Plan Assessment and plan (1) Closed bimalleolar fracture of right ankle: Status: Acute Assessment and plan: 78-year-old female with acute right ankle bimalleolar fracture with moderate lateral subluxation. Syndesmosis appears stable. Discussed at length the clinical and radiographic findings with the patient. Although a bimalleolar ankle fracture is typically considered unstable and is managed operatively and the majority of patients even elderly patients this fracture has potential to be closed reduced and managed nonoperatively. The patient is not low risk for surgical intervention of the ankle given her severe osteoporosis, antiseizure medications, and pulmonary embolism history. Acute operative fixation may secure more definitive anatomic reduction it is not with out surgical risks including pain, infection, nerve injury, and failure. The lateral malleolus by itself is relatively nondisplaced does not meet operative criteria. The medial malleolus although displaced is rather low and is high risk of surgical and hardware complications. The patient also has pre-existing significant ankle arthrosis. The predominant reason to reduce lateral ankle subluxation is to prevent future arthrosis however it has already occurred in her case. She has a history reportedly of doing quite well with crutches in the past. She would like to avoid surgery unless absolutely required. I gave her the option for acute surgical repair versus performing a closed reduction under intra-articular hematoma block anesthesia in the emergency room today followed by short leg splinting. Will follow maintenance of reduction closely in the office radiographically. Should the ankle displace, prove itself to be unstable, or fail to heal via closed means would fix operatively. The patient understands this. Would consider transitioning the patient to a walking boot in an accelerated fashion approximately 3 weeks also to allow early range of motion exercises. Postreduction ankle x-rays ordered and reviewed showing excellent nearly anatomic alignment of the fracture site ankle mortise. Patient will follow-up with me Dr. Braun in the [facility] orthopedic office in approximately 10 days. Recommend aspirin daily 325 mg or 81 mg twice daily for DVT prophylaxis while right lower extremity is mobilized. Discussed with ER physician. Qualifiers: Encounter type: initial encounter Qualified Code(s): S82.841A - Displaced bimalleolar fracture of right lower leg, initial encounter for closed fracture Review of Systems Constitutional Constitutional: Denies chills and Denies fever(s) Eyes Eyes: Denies diplopia and Denies loss of vision ENT Ears, Nose, Mouth, and Throat: Denies dental pain and Denies other (cavities) Cardiovascular Cardiovascular: Denies chest pain with activity, Denies irregular heart rhythm and Denies dyspnea Respiratory Respiratory: Denies cough and Denies dyspnea Gastrointestinal Gastrointestinal: Denies nausea and Denies vomiting Musculoskeletal Musculoskeletal: Reports as per HPI Integumentary/Breasts Skin/Breast: Denies rash and Denies wounds Neurologic Neurologic: Reports as per HPI and Denies loss of vision Psychiatric Psychiatric: Reports anxiety and Reports depression Hematologic/Lymphatic Hematologic/Lymphatic: Denies easy bleeding and Denies easy bruising Allergic/Immunologic Allergic/Immunologic: Reports as per HPI [facility] Medical History Depression with anxiety (Chronic) Epilepsy (Acute 06/09/15) Glaucoma (Chronic) History of pulmonary embolism (Chronic) s/p Eliquis [id number]. Mild cognitive impairment (Chronic) Osteoporosis (Chronic) Surgical History History of carpal tunnel release (Acute) right History of repair of hiatal hernia (Acute) S/P cholecystectomy (Acute) Family History Father Heart disease Mother Breast cancer Social History Smoking/Tobacco Use Status: Never Alcohol Intake: never Drug use: Never Substance use type: does not use Number of Children: 1 Do you feel safe at home: Yes Do you feel safe in your relationship?: Yes Additional Social history: She has one son. Niece Rupinder often helps/involved. No smoking, ETOH, or illicit drug use. Pt is living at [facility] and is feeling unsafe due to neighbors being loud and pounding on goodman and doors. Exam Const General: cooperative, comfortable and no acute distress Orientation: alert, awake and not confused Limitations: mental status not altered and no language barrier HENMT Head: normocephalic and atraumatic Neck Neck: normal visual inspection and full ROM Resp Effort & Inspection: normal respiratory effort, able to speak in complete sentences, no audible wheezes and no grunting Cardio Other: Negative pedal edema. Bilateral foot ankle toes warm well perfused. General: deferred Skin General skin exam: no rashes or lesions noted Neuro General: alert, awake and oriented x3 Cognition: normal cognition Speech: speech normal Extrem Other: Grossly moving bilateral shoulders upper extremities neck and left lower extremity without pain no obvious deformity ecchymosis or injury Right lower extremity: Isolated mild tenderness to palpation about the medial lateral malleoli. Negative calf syndesmotic squeeze. Skin intact medial laterally. Early mild ecchymosis medial laterally. Demonstrates intact motor flexion extension of the toes. Grossly neurovascular intact distally. Psych Appearance: grossly normal Mental Status: mental status grossly normal Speech and Movement: speech and movement normal Affect: normal affect Attitude: cooperative Results Last Vital Signs Temp 97.9 F 04/16/19 09:25 Pulse 60 04/16/19 10:21 Resp 16 04/16/19 09:25 BP 127/107 H 04/16/19 10:21 Pulse Ox 94 L 04/16/19 10:21 Labs Result diagrams: 04/16/19 11:26 04/16/19 11:26 Imaging Imaging Studies: Right knee x-ray independently interpreted: Moderate tricompartmental arthrosis without acute fracture dislocation Right ankle x-rays independently interpreted: Significant for bimalleolar ankle fracture with Thorne B fibula and and distal below the shoulder medial malleolus displaced fracture with the talus laterally displaced approximately 6-7 mm. Tib-fib overlap preserved. Medial malleolus laterally displaced 3 mm. Postreduction right ankle x-rays independently interpreted: Excellent reduction of the medial malleolus and ankle mortise nearly anatomic alignment without any medial clear space widening. Procedures Orthopedic Fracture Reduction Right displaced bimalleolar ankle fracture: Time out performed: No (No procedural sedation done. Verbal consent obtained from patient prior to hematoma block splinting and manipulation.) Side: right Fracture reduction location: tibia, fibula and other (Bimalleolar right ankle laterally displaced ankle fracture) Analgesia: hematoma block (Anterior medial intra-articular ankle 10 cc 1% lidocaine injection) Technique: direct manipulation Post-reduction x-rays demonstrate: anatomical reduction Post-reduction neuro exam: intact and no change Post-reduction vascular exam: intact and no change Splint applied: Yes (Short leg AO splint) Patient tolerated procedure: well
[2019-04-16] MEDS: HYDROmorphone 2 MG/ML VIAL 0.5 MG IVP (13:39)
[2019-04-16] MEDS: Normal Saline Flush 10 ML SYR IVP ×3 (13:39→20:55)
--- NOTE | 2019-04-16 13:50 | DI.RAD_ITS ---
EXAM: XR ANKLE RT COMPLETE INDICATION: s/p reduction, pain and fracture. COMPARISON: No exams were available for comparison TECHNIQUE: 2D digital imaging was performed. FINDINGS: A cast has been placed, which somewhat obscures the bony detail. There is improvement in the alignme nt of the bimalleolar fracture. The mortise is no longer widened.
[2019-04-16] MEDS: Aspirin 325 MG TAB PO ×2 (14:17→14:23)
[2019-04-16] MEDS: Ondansetron 4 MG/2 ML VIAL (14:23)
--- NOTE | 2019-04-16 15:10 | PT.INIE ---
Date of service: 04/16/19 Time of Service: 15:10 PT Notes Visit Reasons: ANKLE FRACTURE Physical Therapy Inpatient Initial Evaluation Date: 04/16/2019 Referring Doctor: Stu Gannon MD PT Orders: PT CONSULT: Eval for assistive device. Assess for crutch teaching. Precautions: Fall. Standard. Per ED nurse, orthopedic surgeon recommended protected toe touch weight-bearing. Patient Profile/Admitting Diagnosis: Patient is a 78-year-old female who presented to the ED on 04/16/2019 via EMS due to a mechanical fall while descending from a large pickup truck with a chief complaint of right ankle pain. Patient is diagnosed with a closed bimalleolar fracture of the right ankle and is status post close reduction with intra-articular block anesthesia followed by short leg splinting done by Dr. Braun on 04/16/2019. PMHX: Medical History Depression with anxiety (Chronic) Epilepsy (Acute 06/09/15) Glaucoma (Chronic) History of pulmonary embolism (Chronic) s/p Eliquis [id number]. Mild cognitive impairment (Chronic) Osteoporosis (Chronic) Surgical History History of carpal tunnel release (Acute) right History of repair of hiatal hernia (Acute) S/P cholecystectomy (Acute) Social History/Home Situation: Patient lives alone on the fifth floor of an apartment building in [facility]. She has a home health aide who comes in once a week to help with chores and laundry. Patient is independent with all all mobility ADL performance without the need for an assistive ambulatory device nor adaptive equipment prior to today's admission. Patient has a ramp to enter the apartment building. The length of the ramp is at least 50 feet and patient needs to push through heavy entrance doors manually in order to get in. She has about 10 to 15 feet from of the entrance door of her apartment to the elevator. Equipment Owned/DME: None Subjective: Patient states that she feels like she is flying and is greatly feeling unsafe to try to stand up. She states that she has not eaten anything and that she was just given Dilaudid. Patient states that she has not reacted this way to a pain pill before; she has not had this medication in the past. Objective: General Observation: Leg splint on right LE. IV access open in right UE. Mental Status: Alert and oriented x4 Pain: 1-2/10 on right LE ROM: Right Upper Extremity: Shoulder Flexion WFL. Shoulder abduction WFL. Elbow flexion WFL. Wrist flexion WFL. Opening and closing of hand WFL. Left Upper Extremity: Shoulder Flexion WFL. Shoulder abduction WFL. Elbow flexion WFL. Wrist flexion WFL. Opening and closing of hand WFL. Right Lower Extremity: Hip flexion WFL. Hip abduction WFL. Knee flexion allows up to 90 degrees limited by splint. Ankle dorsiflexion NT due to splint. Ankle plantarflexion NT due to splint. Left Lower Extremity: Hip flexion WFL. Hip abduction WFL. Knee flexion WFL. Ankle dorsiflexion WFL. Ankle plantarflexion WFL. Strength: Right Upper Extremity: Shoulder flexors 4/5. Shoulder abductors 4/5. Elbow flexors 5/5. Elbow extensors 5/5. Paper Making Machine Operator strong. Left Upper Extremity: Shoulder flexors 5/5. Shoulder abductors 5/5. Elbow flexors 5/5. Elbow extensors 5/5. Paper Making Machine Operator strong. Right Lower Extremity: Hip flexors 4/5. Hip abductors 4/5. Knee flexors 3-/5. Knee extensors 5/5. Ankle dorsiflexors NT. Ankle plantarflexors NT. Left Lower Extremity:Hip flexors 5/5. Hip abductors 5/5. Knee flexors 5/5. Knee extensors 5/5. Ankle dorsiflexors 5/5. Ankle plantarflexors 5/5. Sensation: Intact as to pain and pressure on bilateral lower extremities. Bed Mobility/Transfers: Rolling SBA Supine to sit SBA with HOB at 45 degrees Sit to supine SBA with HOB at 45 degrees Sit to stand SBA Stand to sit SBA Bed to chair SBA Chair to bed SBA Gait: Due to side effect of Dilauded intake, patient feels unsafe to try out ambulation activity. When this PT came back at 16:11 pm per second request of ED to evalaute gait, patient tolerated 3 steps with TTWB on R LE only with minimal assist of PT. Patient complained of B UE discomofrt and fatigue from usinf the FWW. Patient reported a pulling sensation on the back of her knee and 2/10 pain on the right foot. Patient requires moderate to maximal cueing to ensure correct weight bearing technique on R LE. Balance: Static Sitting: Normal Dynamic Sitting: Normal Static Standing: Fair Dynamic Standing: Fair Special Tests: Mobility Limitations Standardized Measure [facility] AM-PAC 6 clicks Basic Mobility Inpatient Short Form: Raw Score: 12 CMS Score: 76% deficit Informed Consent/Education: Patient instructed in purpose of PT consult and plan of care. Assessment: Patient is a 78-year-old female who presented to the ED on 04/16/2019 via EMS due to a mechanical fall while descending from a large pickup truck with a chief complaint of right ankle pain. Patient is diagnosed with a closed bimalleolar fracture of the right ankle and is status post close reduction with intra-articular block anesthesia followed by short leg splinting done by Dr. Braun on 04/16/2019. Due to patient's weight bearing precaution, her home situation, and her report of unsteadiness and dizziness, she is not safe to go home at this time. ED MD was informed that another attempt at reassessment of balance and gait will be done once patient recovers from the pain pill medication she recently had. Patient presents with clinical signs and symptoms consistent with current/admitting diagnoses that have resulted to mobility limitations, gait instability, generalized weakness, and impairment of motor control as demonstrated by the following impairment level findings: 1. Decreased strength to R LE major muscle groups 2. Impaired standing balance 3. Impaired activity tolerance 4. Limitation of joint range of motion in R ankle due to splint 5. PWB on R LE Impairments are contributing to the following functional limitations: 1. Inability to safely ambulate without assistive device and physical assistance 2. Increase completion time for mobility ADL performance 3. Increased fall risk 4. Inability to negotiate steps alone safely Patient is assessed as a 31429 moderate complexity based on the following: History: 78-year-old female status post close reduction of right bowel malleolar fracture with long-leg splint placement with past medical history listed above, impairment level findings, functional limitations, and [facility] CMS deficit score of 21% Examination: Demonstrable impairment in strength, balance, and range of motion with underlying impairments and functional limitations as documented above Presentation: Evolving Decision Makin moderate complexity Goals: N/A. PT evalaution only. Plan of Care/Treatment Plan: N/A. PT evalaution only. DISCHARGE RECOMMENDATIONS: Recommend hospital admission or SNF placement for continued skilled PT services to reduce fall risk. TREATMENT CODE/TIME: 96706 x 20 minutes, 81641 x 18 minutes beginning at 15:10 PM. Thank you very much for this referral. Qi Bhat PT, DPT, CLT [facility] [place], [place]
--- NOTE | 2019-04-16 16:44 | NUR.NOTE ---
04/16/19 Physical therapy in room to assess patient twice. Unable to ambulate with crutches or walker. Increased fall risk.
--- NOTE | 2019-04-16 18:14 | HPE_ITS ---
Date of service: 04/16/19 Time of Service: 18:14 Assessment and Plan Assessment and plan (1) Ankle fracture, bimalleolar, closed: Status: Acute Assessment and plan: Ankle fracture secondary to mechanical fall. Will admit for PT and pain control (will try lower dose Dilaudid, as per above). usual meds as is otherwise except Aspirin will be increased as per Ortho. History of Present Illness History of Present Illness Chief Complaint: ankle pain Narrative: 78 female had mechanical fall today, immediate pain right ankle. Found to have ankle fracture. Per orthopedics decision was made to have non-operative treatment, had closed reduction and spint. PT consulted, unable to ambulate so is admitted for further management.Please note she had dose of 0.5 IV Dilaudid, pain resolved but had unpleasant mental status changes. Review of Systems All systems reviewed & are unremarkable except as noted in HPI and below PFSH Medical History Depression with anxiety (Chronic) Epilepsy (Acute 06/09/15) Glaucoma (Chronic) History of pulmonary embolism (Chronic) s/p Eliquis [id number]. Mild cognitive impairment (Chronic) Osteoporosis (Chronic) Surgical History History of carpal tunnel release (Acute) right History of repair of hiatal hernia (Acute) S/P cholecystectomy (Acute) Family History Father Heart disease Mother Breast cancer Social History Smoking/Tobacco Use Status: Never Alcohol Intake: never Drug use: Never Substance use type: does not use Number of Children: 1 Do you feel safe at home: Yes Do you feel safe in your relationship?: Yes Additional Social history: She has one son. Niece Rupinder often helps/involved. No smoking, ETOH, or illicit drug use. Pt is living at [facility] and is feeling unsafe due to neighbors being loud and pounding on goodman and doors. Meds Home Medications and Allergies Home Medications Medication Instructions Recorded Confirmed Type loratadine [Claritin] 10 mg PO DAILY tab-cap 09/13/17 04/16/19 History alendronate 70 mg tablet 70 mg PO QWEEK 12/25/17 04/16/19 History aspirin 81 mg chewable tablet 81 mg PO DAILY 12/25/17 04/16/19 History sertraline 100 mg tablet 100 mg PO DAILY tab 12/25/17 04/16/19 History latanoprost 1 drp OPHTHALMIC (EYE) HS 08/06/18 04/16/19 History levetiracetam 750 mg tablet 750 mg PO BID #180 tab 02/24/19 04/16/19 Rx Allergies Allergy/AdvReac Type Severity Reaction Status Date / Time chlorpromazine HCl Allergy Unverified 04/16/19 09:28 [From Thorazine] penicillin Allergy Unverified 04/16/19 09:28 Exam Narrative Exam Narrative: 122/65, 59, 16, 36.6. HEENT AT/NC; neck supple; lungs clear; heart RRR w/o MRG; abdomen soft and NT; pelvic/rectal deferred; extremities splint Right leg, distal CSM intact; neuro Ox3, moves all 4s. Results Labs Result diagrams: 04/16/19 11:26 04/16/19 11:26 Labs: Laboratory Results - last 24 hr 04/16/19 04/16/19 04/16/19 11:26 11:26 11:26 WBC Cancelled RBC Cancelled Hgb Cancelled Hct Cancelled MCV Cancelled MCH Cancelled MCHC Cancelled RDW Cancelled Plt Count Cancelled MPV Cancelled Immature Gran % Cancelled Neutrophils % Cancelled Band Neutrophils % Cancelled Lymphocytes % Cancelled Atypical Lymphs % Cancelled Monocytes % Cancelled Eosinophils % Cancelled Basophils % Cancelled Metamyelocytes % Cancelled Myelocytes % Cancelled Promyelocytes % Cancelled Absolute Neutrophils Cancelled Absolute Lymphocytes Cancelled Absolute Monocytes Cancelled Absolute Eosinophils Cancelled Absolute Basophils Cancelled Nucleated RBCs Cancelled Differential Comment Cancelled Other Cell Type Cancelled RBC Morphology Cancelled Polychromasia Cancelled Hypochromasia Cancelled Poikilocytosis Cancelled Basophilic Stippling Cancelled Anisocytosis Cancelled Microcytosis Cancelled Macrocytosis Cancelled Spherocytes Cancelled Target Cells Cancelled Tear Drop Cells Cancelled Ovalocytes Cancelled Stomatocytes Cancelled [place] Bodies Cancelled [place] Cells Cancelled Acanthocytes (Spur) Cancelled Schistocytes Cancelled Sodium Cancelled Potassium Cancelled Chloride Cancelled Carbon Dioxide Cancelled Anion Gap Cancelled BUN Cancelled Creatinine Cancelled Estimated GFR/1.73 m2 Cancelled Glucose Cancelled Calcium Cancelled Total Bilirubin Cancelled AST Cancelled ALT Cancelled Alkaline Phosphatase Cancelled Total Protein Cancelled Albumin Cancelled Patient ABO/Rh Cancelled Last Vital Signs Temp 36.6 C 04/16/19 09:25 Pulse 59 L 04/16/19 16:01 Resp 16 04/16/19 15:44 BP 122/65 04/16/19 16:01 Pulse Ox 97 04/16/19 16:01
--- NOTE | 2019-04-16 18:39 | CMPROGNOTE_ITS ---
- If Service Date Differs Date of service: 04/16/19 Time of Service: 18:39 Care Management Progress Note CM was consulted to the ED to meet with Lizbeth regarding disposition. She presented to the ED with acute right ankle bimalleolar fracture with moderate lateral subluxation. PT was consulted and she worked with them twice. She failed to independently transfer while working with PT, so I was called in to see if there was an alternative to admission. Lizbeth reported that she lives alone in an apartment in [facility]. There is an elevator in the building, and her apartment is wheelchair accessible. Lizbeth reported that she does not have family or friends who could stay in her apartment with her, nor would she be able to stay with anyone. She stated that she doesn't get out of bed much at night, but that often when she does she will stand up and go too quickly, which has resulted in a fall in her home previously. She stated that she has neighbors/friends that will check in on her, and she was agreeable to HH coming to check in on her as well. She reported that she does have [facility] moderate needs, so a hydraulic press operator comes into her house once a week. She also reported that she has a case management rn through the [employer], Mckenna Sparks. She stated that her neighbor, Bishop Arreguin has a wheelchair that he often lends out, so she may be able to ask if she can use it, if necessary. She would prefer to be home, but is agreeable to staying one night, if she has to. CM discussed Lizbeth's social situation with the provider who agreed that it would not be safe to send her home without someone staying with her to help her transfer. Per provider, she may be admitted in observation status for pain control and to work with PT in order to gain strength to transfer. Once she can transfer independently (with the use of DME, if necessary), or has additional support in the home, she will have an appropriate, safe discharge plan. CM will continue to follow.
[2019-04-16] MEDS: levETIRAcetam 250 MG TAB 750 MG PO (20:54)
[2019-04-16] MEDS: Acetaminophen 325 MG TAB 650 MG PO (22:18)
[2019-04-16] MEDS: Latanoprost 0.005% 2.5 ML BTL OP (22:44)
[2019-04-17] MEDS: Acetaminophen 325 MG TAB 650 MG PO ×2 (04:04→13:25)
[2019-04-17 07:34] VITALS: BP 128/68; PULSE 68; RESP 18; TEMP 36.8; O2SAT 97
[2019-04-17] MEDS: Sertraline 50 MG TAB 100 MG PO (08:31)
[2019-04-17] MEDS: Aspirin 325 MG TAB PO (08:31)
[2019-04-17] MEDS: levETIRAcetam 250 MG TAB 750 MG PO ×2 (08:31→20:17)
[2019-04-17] MEDS: Normal Saline Flush 10 ML SYR IVP ×2 (08:32→20:18)
--- NOTE | 2019-04-17 08:35 | IN_ITS ---
Date of service: 04/17/19 Time of Service: 08:35 PT Notes Visit Reasons: ANKLE FRACTURE Physical Therapy Inpatient Initial Evaluation Date: 04/17/2019 Referring Doctor: Enoch Bryant MD PT Orders: PT CONSULT: Eval/treat. Precautions: Fall. Standard. Per Dr. Braun: Patient may use assist device as needed for ambulation. May rest RLE with splint on the ground as needed during stance or transfers. Recommend protected weight bearing (50%) otherwise as best possible. Continue elevation over next few days. Daily ROM to hip, knee, and toes. Patient Profile/Admitting Diagnosis: Patient is a 78-year-old female who presented to the ED on 04/16/2019 via EMS due to a mechanical fall while descending from a large pickup truck with a chief complaint of right ankle pain. Patient is diagnosed with a closed bimalleolar fracture of the right ankle and is status post close reduction with intra-articular block anesthesia followed by short leg splinting done by Dr. Braun on 04/16/2019. PMHX: Medical History Depression with anxiety (Chronic) Epilepsy (Acute 06/09/15) Glaucoma (Chronic) History of pulmonary embolism (Chronic) s/p Eliquis [id number]. Mild cognitive impairment (Chronic) Osteoporosis (Chronic) Surgical History History of carpal tunnel release (Acute) right History of repair of hiatal hernia (Acute) S/P cholecystectomy (Acute) Social History/Home Situation: Patient lives alone on the fifth floor of an apartment building in [facility]. She has a home health aide who comes in once a week to help with chores and laundry. Patient is independent with all all mobility ADL performance without the need for an assistive ambulatory device nor adaptive equipment prior to today's admission. Patient has a ramp to enter the apartment building. The length of the ramp is at least 50 feet and patient needs to push through heavy entrance doors manually in order to get in. She has about 10 to 15 feet from of the entrance door of her apartment to the elevator. Equipment Owned/DME: None Subjective: Patient reports feeling a lot better today. She is agreeable to another PT evaluation. She reports complete resolution of her lightheadedness that limited evaluation yesterday. She does complain of mild pain on the right foot aggravated with weight bearing. Objective: General Observation: Leg splint on right LE. IV access open in right UE. Mental Status: Alert and oriented x4 Pain: 1-2/10 on right LE ROM: Right Upper Extremity: Shoulder Flexion WFL. Shoulder abduction WFL. Elbow flexion WFL. Wrist flexion WFL. Opening and closing of hand WFL. Left Upper Extremity: Shoulder Flexion WFL. Shoulder abduction WFL. Elbow flexion WFL. Wrist flexion WFL. Opening and closing of hand WFL. Right Lower Extremity: Hip flexion WFL. Hip abduction WFL. Knee flexion allows up to 90 degrees limited by splint. Ankle dorsiflexion NT due to splint. Ankle plantarflexion NT due to splint. Left Lower Extremity: Hip flexion WFL. Hip abduction WFL. Knee flexion WFL. Ankle dorsiflexion WFL. Ankle plantarflexion WFL. Strength: Right Upper Extremity: Shoulder flexors 4/5. Shoulder abductors 4/5. Elbow flexors 5/5. Elbow extensors 5/5. Credit Report Checker strong. Left Upper Extremity: Shoulder flexors 5/5. Shoulder abductors 5/5. Elbow flexors 5/5. Elbow extensors 5/5. Credit Report Checker strong. Right Lower Extremity: Hip flexors 4/5. Hip abductors 4/5. Knee flexors 3-/5. Knee extensors 5/5. Ankle dorsiflexors NT. Ankle plantarflexors NT. Left Lower Extremity:Hip flexors 5/5. Hip abductors 5/5. Knee flexors 5/5. Knee extensors 5/5. Ankle dorsiflexors 5/5. Ankle plantarflexors 5/5. Sensation: Intact as to pain and pressure on bilateral lower extremities. Bed Mobility/Transfers: Rolling SBA Supine to sit SBA with HOB at 45 degrees Sit to supine SBA with HOB at 45 degrees Sit to stand SBA Stand to sit SBA Bed to chair SBA Chair to bed SBA Gait: Patient tolerated 60 to 70 feet of level surface ambulation using the front wheeled walker with SBA of PT and wheelchair follow of student PT with partial weight bearing on the right LE. Patient reported a pulling sensation on the back of her knee and 2/10 pain on the right foot. She complained about fatigue on bilateral upper extremities as well on her left LE. Patient requires moderate to maximal cueing to ensure correct weight bearing technique on R LE. No ncreased pain Balance: Static Sitting: Normal Dynamic Sitting: Normal Static Standing: Fair Dynamic Standing: Fair Special Tests: Mobility Limitations Standardized Measure [facility] AM-PAC 6 clicks Basic Mobility Inpatient Short Form: Raw Score: 22 CMS Score: 21% deficit Informed Consent/Education: Patient instructed in purpose of PT consult and plan of care. Assessment: Patient is a 78-year-old female who presented to the ED on 04/16/2019 via EMS due to a mechanical fall while descending from a large pickup truck with a chief complaint of right ankle pain. Patient is diagnosed with a closed bimalleolar fracture of the right ankle and is status post close reduction with intra-articular block anesthesia followed by short leg splinting done by Dr. Braun on 04/16/2019. Patient requires moderate to maximal cueing for correct weight bearing precaution, walker management, and directional changes. Patient will benefit from meals on wheels as she may not be able to safely work in the kitchen at all times due to weight-bearing precaution. She may need increased number of hours from home health aide for grocery shopping and laundry. She also will benefit from using a transport chair to negotiate the non-covered (no roof) ramp to the main entrance of the apartment building and will require assistance to push past the heavy entrance door of the building to get to the elevator. Patient presents with clinical signs and symptoms consistent with current/admitting diagnoses that have resulted to mobility limitations, gait instability, generalized weakness, and impairment of motor control as demonstrated by the following impairment level findings: 1. Decreased strength to R LE major muscle groups 2. Impaired standing balance 3. Impaired activity tolerance 4. Limitation of joint range of motion in R ankle due to splint 5. PWB on R LE Impairments are contributing to the following functional limitations: 1. Inability to safely ambulate without assistive device and physical assistance 2. Increase completion time for mobility ADL performance 3. Increased fall risk 4. Inability to negotiate steps alone safely Patient is assessed as a 11090 moderate complexity based on the following: History: 78-year-old female status post close reduction of right bowel malleolar fracture with long-leg splint placement with past medical history listed above, impairment level findings, functional limitations, and [facility] CMS deficit score of 21% Examination: Demonstrable impairment in strength, balance, and range of motion with underlying impairments and functional limitations as documented above Presentation: Evolving Decision Makin moderate complexity Goals: Goals X1 week 1. Supine-Sit independent 2. Sit-Supine independent 3. Sit-Stand independent 4. Stand-Sit independent 5. Bed-Chair independent 6. Chair-Bed independent 7. Independent gait on level surface with use of least restrictive device for at least 100 feet without report of pain nor dyspnea 8. Independent with home exercise program 9. Good static and dynamic standing balance/tolerance Plan of Care/Treatment Plan: 1-2x/day, 7 days/week x 1 week. Plan of care has been reviewed with the CREATIVE SERVICES SPECIALIST providing the service under Physical Therapy direction. Initiate Physical Therapy intervention for strengthening, bed mobility, transfers, gait, stairs, balance training, use of assistive device. DISCHARGE RECOMMENDATIONS: Patient will benefit from meals on wheels as she may not be able to safely work in the kitchen at all times due to weight-bearing precaution. She may need increased number of hours from home health aide for assistance with screwdown operator, grocery shopping, and laundry. She also will b enefit from using a transport chair to negotiate the non-covered (no roof) ramp to the main entrance of the apartment building and will require assistance to push past the heavy entrance door of the building to get to the elevator. She will benefit from home health PT services in order to progress mobility level using least restrictive assistive ambulatory device, assess home safety, identify additional equipment needs, and establish a functional maintenance program that will increase ability of patient to remain at home. TREATMENT CODE/TIME: 48025 x 30 minutes, 75561 x 10 minutes beginning at 8:35 AM. Thank you very much for this referral. Qi Bhat PT, DPT, CLT [facility] [place], [place]
--- NOTE | 2019-04-17 13:02 | W.NUTCONSULT ---
Date of service: 04/17/19 Time of Service: 13:02 Nutritional Consult ASSESSMENT: 78 year old female admitted with ankle fracture. PMH: cognitive impairment, osteoporosis, glaucoma, epilepsy. Following regular meal plan with adequate intake. BMi indicates class 2 obesity. Not considered at nutritional risk at this time. MONITORING AND EVALUATION: po intake and weight trends Time Spent in Nutritional Counseling and Treatment: 0 time spent face to face
[2019-04-17 14:45] VITALS: O2SAT 93
--- NOTE | 2019-04-17 15:19 | W.PM.PROGNOT ---
Date of Service Date of service: 04/17/19 Time of Service: 15:19 Assessment and Plan Assessment and plan (1) Closed bimalleolar fracture of right ankle: Status: Acute Assessment and plan: 78-year-old female with acute right ankle bimalleolar fracture with moderate lateral subluxation. Syndesmosis appears stable. Postreduction ankle x-rays ordered and reviewed showing excellent nearly anatomic alignment of the fracture site ankle mortise. Plan to proceed with trial of nonoperative management. Discharge per primary medical provider when the patient is comfortable and safe with physical therapy. Patient may use assist device as needed for ambulation May rest RLE with splint on the ground as needed during stance or transfers Recommend Protected weight bearing (50%) as best possible Continue elevation over next few days Daily ROM to hip, knee, and toes Patient will follow-up with me Dr. Braun in the [facility] orthopedic office on 04/29/19. Recommend aspirin daily 325 mg daily for DVT prophylaxis while right lower extremity is mobilized. Qualifiers: Encounter type: initial encounter Qualified Code(s): S82.841A - Displaced bimalleolar fracture of right lower leg, initial encounter for closed fracture Subjective Subjective Patient reports: no new complaints, feels better and pain is less Exam Const General: cooperative and no acute distress Orientation: alert, awake and not confused Limitations: mental status not altered and no language barrier Resp Effort & Inspection: normal respiratory effort, able to speak in complete sentences, no audible wheezes and no grunting General: deferred Skin General skin exam: no rashes or lesions noted Neuro General: alert, awake and oriented x3 Cognition: normal cognition Speech: speech normal Extrem Other: Right lower extremity short leg splint clean dry intact. Demonstrates good motor sensory brisk cap refill to the toes. Demonstrates active hip and knee motion. Denies any significant calf pain. Psych Appearance: grossly normal Mental Status: mental status grossly normal Speech and Movement: speech and movement normal Affect: normal affect Attitude: cooperative Objective Objective Clinical Data: Vital Signs Temperature 98.2 F 04/17/19 07:34 Temperature Source Tympanic 04/17/19 07:34 Pulse 68 04/17/19 07:34 Pulse Rhythm Regular 04/17/19 07:35 Pulse Strength Normal 04/16/19 15:44 Respiratory Rate 18 04/17/19 07:34 Respiratory Effort Non-Labored 04/17/19 07:35 Respiratory Depth Normal 04/17/19 07:35 Respiratory Pattern Normal 04/17/19 07:35 Blood Pressure 128/68 04/17/19 07:34 Blood Pressure Mean 79 04/16/19 16:01 Blood Pressure Position Supine 04/16/19 09:25 Pulse Oximetry 93 L 04/17/19 14:45 Oxygen Delivery Method Room Air 04/17/19 14:45 Oxygen Flow Rate 0 04/17/19 14:45 Pain Level 5 04/17/19 13:25 Intake & Output 04/16/19 04/17/19 04/17/19 23:59 11:59 23:59 Intake Total 260 / 260 Output Total 300 / 300 700 / 1050 350 / 1050 Balance -290 / -290 -440 / -790 -350 / -790 Weight 196 lb 13.965 oz Intake: IV Oral 250 / 250 Output: Urine 300 / 300 700 / 1050 350 / 1050 Other: Urine Color Yellow Yellow Pale Yellow Urine Appearance Clear Clear Urine Odor Strong Normal Voiding Methods Bedside Commode Toilet Laboratory Results WBC Cancelled 04/16/19 11:26 RBC Cancelled 04/16/19 11:26 Hgb Cancelled 04/16/19 11:26 Hct Cancelled 04/16/19 11:26 MCV Cancelled 04/16/19 11:26 MCH Cancelled 04/16/19 11:26 MCHC Cancelled 04/16/19 11:26 RDW Cancelled 04/16/19 11:26 Plt Count Cancelled 04/16/19 11:26 MPV Cancelled 04/16/19 11:26 Immature Gran % Cancelled 04/16/19 11:26 Neutrophils % Cancelled 04/16/19 11:26 Band Neutrophils % Cancelled 04/16/19 11:26 Lymphocytes % Cancelled 04/16/19 11:26 Atypical Lymphs % Cancelled 04/16/19 11:26 Monocytes % Cancelled 04/16/19 11:26 Eosinophils % Cancelled 04/16/19 11:26 Basophils % Cancelled 04/16/19 11:26 Metamyelocytes % Cancelled 04/16/19 11:26 Myelocytes % Cancelled 04/16/19 11:26 Promyelocytes % Cancelled 04/16/19 11:26 Absolute Neutrophils Cancelled 04/16/19 11:26 Absolute Lymphocytes Cancelled 04/16/19 11:26 Absolute Monocytes Cancelled 04/16/19 11:26 Absolute Eosinophils Cancelled 04/16/19 11:26 Absolute Basophils Cancelled 04/16/19 11:26 Nucleated RBCs Cancelled 04/16/19 11:26 Differential Comment Cancelled 04/16/19 11:26 Other Cell Type Cancelled 04/16/19 11:26 RBC Morphology Cancelled 04/16/19 11:26 Polychromasia Cancelled 04/16/19 11:26 Hypochromasia Cancelled 04/16/19 11:26 Poikilocytosis Cancelled 04/16/19 11:26 Basophilic Stippling Cancelled 04/16/19 11:26 Anisocytosis Cancelled 04/16/19 11:26 Microcytosis Cancelled 04/16/19 11:26 Macrocytosis Cancelled 04/16/19 11:26 Spherocytes Cancelled 04/16/19 11:26 Target Cells Cancelled 04/16/19 11:26 Tear Drop Cells Cancelled 04/16/19 11:26 Ovalocytes Cancelled 04/16/19 11:26 Stomatocytes Cancelled 04/16/19 11:26 [place] Bodies Cancelled 04/16/19 11:26 [place] Cells Cancelled 04/16/19 11:26 Acanthocytes (Spur) Cancelled 04/16/19 11:26 Schistocytes Cancelled 04/16/19 11:26 Sodium Cancelled 04/16/19 11:26 Potassium Cancelled 04/16/19 11:26 Chloride Cancelled 04/16/19 11:26 Carbon Dioxide Cancelled 04/16/19 11:26 Anion Gap Cancelled 04/16/19 11:26 BUN Cancelled 04/16/19 11:26 Creatinine Cancelled 04/16/19 11:26 Estimated GFR/1.73 m2 Cancelled 04/16/19 11:26 Glucose Cancelled 04/16/19 11:26 Calcium Cancelled 04/16/19 11:26 Total Bilirubin Cancelled 04/16/19 11:26 AST Cancelled 04/16/19 11:26 ALT Cancelled 04/16/19 11:26 Alkaline Phosphatase Cancelled 04/16/19 11:26 Total Protein Cancelled 04/16/19 11:26 Albumin Cancelled 04/16/19 11:26 Patient ABO/Rh Cancelled 04/16/19 11:26
[2019-04-17 15:25] VITALS: BP 122/71; PULSE 57; RESP 18; TEMP 36.5; O2SAT 95
--- NOTE | 2019-04-17 15:53 | PT.INTREAT ---
Date of service: 04/17/19 Time of Service: 15:53 PT Notes Visit Reasons: ANKLE FRACTURE Inpatient Physical Therapy Treatment Note [facility] Date: 04/17/2019 PRECAUTIONS: Fall, PWB R SUBJECTIVE: Lizbeth states that she was walking from the bathroom to her bed, but didn't ring for assistance. Patient states I'm finding that the more weight I put on my leg, the better. OBJECTIVE: Patient was found ambulating out of bathroom, independently, with FWW. PAIN: No c/o pain BED MOBILITY/TRANSFERS Sit-supine: I with HOB flat Sit-stand: I Stand-sit: S GAIT Assistive Device: FWW Weight bearing: PWB R Assist: SBA Distance: 15' Deviation: Cueing/instructions for WB precautions ASSESSMENT: Patient tolerated session without complaint. She was able to demonstrate independence with sit-supine transfer with HOB flat. Patient would benefit from continued gait and transfer training, as well as strengthening for improved mobility. PLAN: Continue with PT's POC TREATMENT CODE/TIME: 10 minutes; [id number]
--- NOTE | 2019-04-17 17:23 | W.PM.PROGNOT ---
Date of Service Date of service: 04/17/19 Time of Service: 17:23 Assessment and Plan Assessment and plan (1) Ankle fracture, bimalleolar, closed: Status: Acute Assessment and plan: s/p splint/cast. Continue to work with PT. Pain is controlled with tylenol alone. Plan is for discharge the patient home tomorw with home health nursing, PT, OT, and a front wheeled walker. (2) Osteoporosis: Status: Chronic Assessment and plan: Check Vitamin D level. Continue bisphosophante (3) Depression with anxiety: Status: Chronic Assessment and plan: Continue sertraline (4) Epilepsy: Status: Acute Assessment and plan: Continue keppra Qualifiers: Epilepsy type: unspecified Intractability: not intractable Status epilepticus: without status epilepticus Qualified Code(s): G40.909 - Epilepsy, unspecified, not intractable, without status epilepticus (5) DVT prophylaxis: Status: Acute Assessment and plan: Full code (6) Discharge planning issues: Status: Acute Assessment and plan: Plan for discharge home tomorrow once the assistive devices are in place Subjective Subjective Interval history since last seen: Ms White states her pain is controlled. She does think she overdid it today with PT. She was ambulating with a walker. She does not have a walker or a wheelchair. We cannot get a walker for her until tomorrow. Her friend has a wheelchair she can borrow. She denies dizziness, chest pain, shortness of breath, nausea. Exam Narrative Exam Narrative: General: Very pleasant elderly female, sitting comfortably at the edge of the bed, A&Ox3 HEENT: EOMI, MMM Heart: RRR, no m/r/g Lungs: CTAB Abdomen: soft, nontender, nondistended Extremities: RLE in a splint/cast; LLE without edema Objective Objective Clinical Data: Vital Signs Temperature 36.5 C 04/17/19 15:25 Temperature Source Tympanic 04/17/19 15:25 Pulse 57 L 04/17/19 15:25 Pulse Rhythm Regular 04/17/19 15:30 Pulse Strength Normal 04/16/19 15:44 Respiratory Rate 18 04/17/19 15:25 Respiratory Effort Non-Labored 04/17/19 15:30 Respiratory Depth Normal 04/17/19 15:30 Respiratory Pattern Normal 04/17/19 15:30 Blood Pressure 122/71 04/17/19 15:25 Blood Pressure Mean 79 04/16/19 16:01 Blood Pressure Position Supine 04/16/19 09:25 Pulse Oximetry 95 04/17/19 15:25 Oxygen Delivery Method Room Air 04/17/19 15:25 Oxygen Flow Rate 0 04/17/19 15:25 Pain Level 0 04/17/19 15:25 Intake & Output 04/16/19 04/17/19 04/17/19 23:59 11:59 23:59 Intake Total 270 / 270 Output Total 300 / 300 700 / 1050 350 / 1050 Balance -290 / -290 -430 / -780 -350 / -780 Weight 89.3 kg Intake: IV Oral 250 / 250 Output: Urine 300 / 300 700 / 1050 350 / 1050 Other: Urine Color Yellow Yellow Pale Yellow Urine Appearance Clear Clear Clear Urine Odor Strong Normal Voiding Methods Bedside Commode Toilet Laboratory Results WBC Cancelled 04/16/19 11:26 RBC Cancelled 04/16/19 11:26 Hgb Cancelled 04/16/19 11:26 Hct Cancelled 04/16/19 11:26 MCV Cancelled 04/16/19 11:26 MCH Cancelled 04/16/19 11:26 MCHC Cancelled 04/16/19 11:26 RDW Cancelled 04/16/19 11:26 Plt Count Cancelled 04/16/19 11:26 MPV Cancelled 04/16/19 11:26 Immature Gran % Cancelled 04/16/19 11:26 Neutrophils % Cancelled 04/16/19 11:26 Band Neutrophils % Cancelled 04/16/19 11:26 Lymphocytes % Cancelled 04/16/19 11:26 Atypical Lymphs % Cancelled 04/16/19 11:26 Monocytes % Cancelled 04/16/19 11:26 Eosinophils % Cancelled 04/16/19 11:26 Basophils % Cancelled 04/16/19 11:26 Metamyelocytes % Cancelled 04/16/19 11:26 Myelocytes % Cancelled 04/16/19 11:26 Promyelocytes % Cancelled 04/16/19 11:26 Absolute Neutrophils Cancelled 04/16/19 11:26 Absolute Lymphocytes Cancelled 04/16/19 11:26 Absolute Monocytes Cancelled 04/16/19 11:26 Absolute Eosinophils Cancelled 04/16/19 11:26 Absolute Basophils Cancelled 04/16/19 11:26 Nucleated RBCs Cancelled 04/16/19 11:26 Differential Comment Cancelled 04/16/19 11:26 Other Cell Type Cancelled 04/16/19 11:26 RBC Morphology Cancelled 04/16/19 11:26 Polychromasia Cancelled 04/16/19 11:26 Hypochromasia Cancelled 04/16/19 11:26 Poikilocytosis Cancelled 04/16/19 11:26 Basophilic Stippling Cancelled 04/16/19 11:26 Anisocytosis Cancelled 04/16/19 11:26 Microcytosis Cancelled 04/16/19 11:26 Macrocytosis Cancelled 04/16/19 11:26 Spherocytes Cancelled 04/16/19 11:26 Target Cells Cancelled 04/16/19 11:26 Tear Drop Cells Cancelled 04/16/19 11:26 Ovalocytes Cancelled 04/16/19 11:26 Stomatocytes Cancelled 04/16/19 11:26 [place] Bodies Cancelled 04/16/19 11:26 [place] Cells Cancelled 04/16/19 11:26 Acanthocytes (Spur) Cancelled 04/16/19 11:26 Schistocytes Cancelled 04/16/19 11:26 Sodium Cancelled 04/16/19 11:26 Potassium Cancelled 04/16/19 11:26 Chloride Cancelled 04/16/19 11:26 Carbon Dioxide Cancelled 04/16/19 11:26 Anion Gap Cancelled 04/16/19 11:26 BUN Cancelled 04/16/19 11:26 Creatinine Cancelled 04/16/19 11:26 Estimated GFR/1.73 m2 Cancelled 04/16/19 11:26 Glucose Cancelled 04/16/19 11:26 Calcium Cancelled 04/16/19 11:26 Total Bilirubin Cancelled 04/16/19 11:26 AST Cancelled 04/16/19 11:26 ALT Cancelled 04/16/19 11:26 Alkaline Phosphatase Cancelled 04/16/19 11:26 Total Protein Cancelled 04/16/19 11:26 Albumin Cancelled 04/16/19 11:26 Patient ABO/Rh Cancelled 04/16/19 11:26
--- NOTE | 2019-04-17 18:00 | INITIAL_ITS ---
- If Service Date Differs Date of service: 04/17/19 Time of Service: 18:00 Care Management Initial Assess REASON FOR HOSPITALIZATION:: Fractured right ankle s/p repair on 04/16/19 PAST MEDICAL HISTORY/PAST SURGICAL HISTORY:: Of epilepsy, depression, anxiety, m ild cognitive impairment, glaucoma, pulmonary embolism, osteoporosis, repair of fracture of the right ankle. PREVIOUS FUNCTIONAL STATUS/SOCIAL/FAMILY SUPPORTS:: Lizbeth lives alone in [place] in the [facility] [address]. She is independent with ADLs including meals. She uses the [employer] service for transportation. She does have moderate needs choices for care and her assistant case manager through [facility] is Mckenna Amaya. She reports several friends at the community that provide support at home. CURRENT FUNCTIONAL STATUS:: Patient is alert and engaged with CM during assessment. She states she feels safe to return home, she will have a front wheeled walker at time of discharge, coordinated through [facility] [place]. Patient has had Meals on Wheels in the past, she is willing to restart them while she is recovering from injury. CM will contact apartment community manager to assist assist in setting up meals. ADVANCE DIRECTIVES:: On file at [facility] agent is Jai Hall Has patient been provided with information about the portal?: Yes Did the patient sign up for the portal?: No INSURANCE COVERAGE / FINANCIAL ISSUES:: Medicare and [employer]. CURRENT HOME/COMMUNITY SERVICES/EQUIPMENT:: Moderate needs choices for care assistant case manager Mckenna mAaya PRIMARY CARE PHYSICIAN:: Nadya Restrepo primary care POTENTIAL DISCHARGE NEEDS:: Follow-up appointment with orthopedic surgeon, RCT transportation home, front wheeled walker coordinated at time of discharge, referral to home delivery meals, referral to community case management for additional support services. PATIENT/FAMILY EDUCATION NEEDS:: Discharge education, limitations, follow plan of care, as me 3 and self-management. ANTICIPATED BARRIERS TO DISCHARGE:: DME equipment unable to obtain front wheeled walker until Sunday04-18-2019 TRANSPORTATION:: Via [facility] coordinated by centimeters at time of discharge PLAN:: Patient to be discharged home when medically ready and appropriate equipment is received. She will have home health nursing, PT, OT, and front wheeled walker coordinated through [facility], patient's choice. CM to continue to provide support ongoing discharge planning and disposition.
[2019-04-17 20:20] LABS: Platelet Count 150 x1000/uL (130-400)
[2019-04-17] MEDS: Heparin 5,000 UNITS/ML VIAL 5000 UNITS SC (21:16)
[2019-04-17] MEDS: Latanoprost 0.005% 2.5 ML BTL OU (22:13)
[2019-04-17 23:26] VITALS: BP 149/80; PULSE 75; RESP 18; TEMP 36.6; O2SAT 97
[2019-04-17] MEDS: Melatonin 3 MG TAB PO (23:57)
[2019-04-18 07:25] VITALS: BP 119/73; PULSE 54; RESP 18; TEMP 37.8; O2SAT 91
[2019-04-18 07:32] LABS: Platelet Count 168 x1000/uL (130-400)
--- NOTE | 2019-04-18 08:49 | CMDISCH_ITS ---
LACE Index Scoring Tool - Questions: Length of Stay (in days): 2 Acuity (Admit via E.D.?): Yes E.D. Visits: 5 - Answers: Total Score: 9 Risk of Readmission: Low Risk Care Management Discharge Reason for Hospitalization: Fractured right ankle s/p repair on 04/16/19 Discharge Plan: Lizbeth will discharge home when ready per MD. She will have new home health orders through [facility] for RN, PT, OT, SLIVER LAP TENDER and FWW coordinated through [facility], per patient's choice. CM provided MOW referral via fax to [facility]. LANCE worked with Mckenna Sparks at [facility] on attainment of W/C, which Mckenna delivered to [facility]. Lizbeth will transport via [facility] [[email or web address] W/C van, coordinated by this typewriter assembly and parts inspector. CM notified Anh GARCIA of discharge plan at 1430 and notified that W/C would arrive at Main Entrance at 1630. Patient/Family Education Needs: Review discharge instructions, discuss Ask Me Three. Services Needed at Discharge: DME Agency (FWW through [facility]), Home Delivered Meals (MOW through [facility]), Home Health Care Services (RN, PT, OT), Transportation ([facility] W/C Van)
--- NOTE | 2019-04-18 08:49 | PDOC.CMDIS ---
LACE Index Scoring Tool - Questions: Length of Stay (in days): 2 Acuity (Admit via E.D.?): Yes E.D. Visits: 5 - Answers: Total Score: 9 Risk of Readmission: Low Risk Care Management Discharge Reason for Hospitalization: Fractured right ankle s/p repair on 04/16/19 Discharge Plan: Lizbeth will discharge home when ready per MD. She will have new home health orders through [facility] for RN, PT, OT, PROGRAMMABLE LOGIC CONTROLLER ASSEMBLER and FWW coordinated through [facility], per patient's choice. CM provided MOW referral via fax to [facility]. LANCE worked with Mckenna Sparks at [facility] on attainment of W/C, which Mckenna delivered to [facility]. Lizbeth will transport via [facility] W/C van, coordinated by this tag writer. CM notified Anh GARCIA of discharge plan at 1430 and notified that W/C would arrive at Main Entrance at 1630. Patient/Family Education Needs: Review discharge instructions, discuss Ask Me Three. Services Needed at Discharge: DME Agency (FWW through [facility]), Home Delivered Meals (MOW through [facility]), Home Health Care Services (RN, PT, OT), Transportation ([facility] W/C Van)
[2019-04-18] MEDS: Sertraline 50 MG TAB 100 MG PO (09:11)
[2019-04-18] MEDS: levETIRAcetam 250 MG TAB 750 MG PO (09:11)
[2019-04-18] MEDS: Aspirin 325 MG TAB PO (09:11)
[2019-04-18] MEDS: Heparin 5,000 UNITS/ML VIAL 5000 UNITS SC (09:12)
[2019-04-18] MEDS: Normal Saline Flush 10 ML SYR IVP (09:17)
--- NOTE | 2019-04-18 12:00 | W.PM.DS.N ---
Date of service: 04/18/19 Time of Service: 12:00 DS: Diagnosis Discharge Diagnosis (1) Ankle fracture, bimalleolar, closed: Status: Acute (2) Osteoporosis: Status: Chronic (3) Depression with anxiety: Status: Chronic (4) Epilepsy: Status: Acute Discharge Plan Disposition Patient Disposition: HOME W/HOME HEALTH SERVICE Condition: Improving Discharge Details Chief Complaint: Orthopedic Clinical Impression: Bimalleolar fracture of right ankle Reason For Visit: ANKLE FRACTURE Admit Date/Time: 04/16/19 18:23 Admit Provider: Enoch Bryant Attending Provider: Enoch Bryant Primary Care Provider: Nadya Bland ED Provider: Stu Gannon Hospital Course Hospital Course: Lizbeth White is a very pleasant 78-year-old female with a past medical history significant for epilepsy, depression with anxiety, glaucoma, mild cognitive impairment, osteoporosis, history of pulmonary embolism who presented to the emergency department on 04/16/2019 after slipping while getting out of a large truck, and subsequently having pain and swelling of the right ankle. She went on to have an x-ray was found to have a displaced bimalleolar fracture of the right ankle. She underwent closed reduction and splint placement in the emergency department. She was considered for discharge at that time, however, she was unable to safely ambulate with a walker or crutches and was admitted to the [facility] for pain management and physical therapy. Her pain was managed with acetaminophen. She worked with physical therapy recommended home health physical therapy in order to progress mobility level, assess home safety, identify additional equipment needs and establish a functional maintenance program. On the day of discharge, she denies any pain at rest. She does have some discomfort after ambulating that is relieved with acetaminophen. She is using the front wheeled walker independently. She will be discharged home with orders for home health physical therapy and Occupational Therapy. She does have a history of PE. She is chronically on aspirin 81 mg daily. Orthopedic recommendations include increasing aspirin dosing. She has been on aspirin 325 mg daily while in the hospital. She will be discharged home on aspirin 325 mg daily for DVT prophylaxis while mobility is limited. She is encouraged to continue using the incentive spirometer and to continue to be active at home. She is discharged home with follow-up in place with Dr. Braun on 04/29/2019 and primary care follow-up. Home Meds and New Rx's Prescriptions: Continued aspirin 81 mg tablet,chewable 81 mg PO DAILY RF: 0 alendronate [Fosamax] 70 mg tablet 70 mg PO QWEEK RF: 0 levetiracetam 750 mg tablet 750 mg PO BID Qty: 180 RF: 3 loratadine [Claritin] 10 MG tablet 10 mg PO DAILY RF: 0 sertraline 100 mg tablet 100 mg PO DAILY RF: 0 latanoprost 0.005 % Drops 1 drp ophthalmic (eye) HS RF: 0 Discharge Instructions Instructions: Leg Fracture (ED) Additional Instructions: Use of crutches for partial weightbearing as discussed with Dr. Braun Elevate the leg to reduce pain and swelling. May apply ice through the splint. Keep the splint clean and dry. Please take 325 mg of aspirin daily while the leg is immobilized to help prevent blood clots. May use Tylenol 650 mg every 6 hours as well as ibuprofen 600 mg every 6-8 hours as needed for pain. Please follow-up with orthopedics in clinic as scheduled. Return for increasing pain, cold/blue/numb toes, or any other acute concern. Continue using incentive spirometer. Use a walker as needed for ambulation, you may rest your right foot on the ground as needed during transfers or while standing. Orthopedics recommends Protected weight bearing (50%) as best possible. Follow-up with your primary care provider as scheduled. Take care! Stand Alone Forms: Nursing Discharge Form Referrals: Cosme Braun MD [ [facility] STAFF PHYSICIAN] - 04/29/19 8:30 am Nadya Bland [Primary Care Provider] - (Please call Sunday to make a follow up appointment. ) Activity:: Activity as Tolerated Equipment/Supplies:: Walker Diet:: As Tolerated Discharge Orders Discharge Orders: Discharge Order (Routine); Ordered 04/18/19 Ordered By: Michell Armando DS: Summary Status at Discharge Functional status at discharge: uses cane/walker Overall status at discharge: patient is not back to baseline Mental Status: mental status grossly normal Speech and Movement: speech and movement normal Mood: congruent mood Affect: normal affect Exam Narrative Exam Narrative: General: Overweight, elderly female, laying in bed with head of bed elevated. Alert and oriented, answers questions appropriately, no acute distress. HEENT normocephalic, atraumatic, EOMI, mucous membranes moist. Cardiovascular: Heart has regular rate and rhythm, no murmur appreciated. Respiratory: Respirations appear even and unlabored, lung sounds clear to auscultation throughout. GI: Normal active bowel sounds, abdomen is soft, nontender on palpation, nondistended. Extremities: Right lower extremity splinted, toes pink and warm with capillary refill less than 3 seconds. No edema of the left lower extremity, left pedal pulse intact. Psych Mental Status: mental status grossly normal Speech and Movement: speech and movement normal Mood: congruent mood Affect: normal affect DS: Data Vitals/I&O Vitals and I&O: Vital Signs Temperature 37.8 C H 04/18/19 07:25 Temperature Source Tympanic 04/18/19 07:25 Pulse 54 L 04/18/19 07:25 Pulse Rhythm Regular 04/18/19 05:02 Pulse Strength Normal 04/16/19 15:44 Respiratory Rate 18 04/18/19 07:25 Respiratory Effort Non-Labored 04/18/19 05:02 Respiratory Depth Normal 04/18/19 05:02 Respiratory Pattern Normal 04/18/19 05:02 Blood Pressure 119/73 04/18/19 07:25 Blood Pressure Mean 79 04/16/19 16:01 Blood Pressure Position Supine 04/16/19 09:25 Pulse Oximetry 91 L 04/18/19 07:25 Oxygen Delivery Method Room Air 04/18/19 07:25 Oxygen Flow Rate 0 04/18/19 07:25 Pain Level 0 04/18/19 07:25 Intake & Output 04/17/19 04/18/19 04/18/19 23:59 11:59 23:59 Intake Total 610 / 880 Output Total 950 / 1650 500 / 500 Balance -340 / -770 -500 / -500 Intake: IV Oral 600 / 850 Output: Urine 950 / 1650 500 / 500 Other: Urine Color Straw Yellow Urine Appearance Clear Clear Urine Odor None Comment mixed with stool Stool Size Moderate Stool Characteristics Formed Brown Voiding Methods Bedside Commode Bedside Commode Data Completed and Pending Completed studies during hospitalization [Text1]: 04/16/2019: EXAM: XR ANKLE RT COMPLETE INDICATION: Fall, medial pain and swelling. COMPARISON: No exams were available for comparison TECHNIQUE: 2D digital imaging was performed. FINDINGS: There is edema around the malleoli. The bones appear osteoporotic. There is an oblique fracture through the lateral malleolus which is mildly displaced and extends to the level of the ankle mortise. There is a transverse fracture through the medial malleolus which shows several millimeters of separation as well as lateral displacement. There is widening of the ankle mortise. No talar dome defect is seen. A plantar calcaneal spur is incidentally noted. IMPRESSION: Bimalleolar fracture. EXAM: XR KNEE RT 2V AP,LAT INDICATION: Distal tibia pain and swelling. COMPARISON: No exams were available for comparison TECHNIQUE: 2D digital imaging was performed. FINDINGS: No fracture or joint effusion is seen. There are mild degenerative changes. IMPRESSION: No acute abnormality. EXAM: XR ANKLE RT COMPLETE INDICATION: s/p reduction, pain and fracture. COMPARISON: No exams were available for comparison TECHNIQUE: 2D digital imaging was performed. FINDINGS: A cast has been placed, which somewhat obscures the bony detail. There is improvement in the alignment of the bimalleolar fracture. The mortise is no longer widened. Labs on day of discharge: Labs from last 24 hours 04/18/19 04/18/19 04/17/19 06:55 06:55 20:09 Plt Count 168 150 25-OH Vitamin D Total Pending [facility] Medical History Depression with anxiety (Chronic) Epilepsy (Acute 06/09/15) Glaucoma (Chronic) History of pulmonary embolism (Chronic) s/p Eliquis [id number]. Mild cognitive impairment (Chronic) Osteoporosis (Chronic) Surgical History History of carpal tunnel release (Acute) right History of repair of hiatal hernia (Acute) S/P cholecystectomy (Acute) Family History Father Heart disease Mother Breast cancer Social History Smoking/Tobacco Use Status: Never Alcohol Intake: never Drug use: Never Substance use type: does not use Number of Children: 1 Do you feel safe at home: Yes Do you feel safe in your relationship?: Yes Additional Social history: She has one son. Niece Rupinder often helps/involved. No smoking, ETOH, or illicit drug use. Pt is living at [facility] and is feeling unsafe due to neighbors being loud and pounding on goodman and doors.
--- NOTE | 2019-04-18 12:37 | PDOC.HHF2F ---
<Michell Armando NP - Last Filed: 04/18/19 12:39> Home Health Certification Home Health Certification: 1. Encounter Date and Reason I certify that SCOTTIE SPRINGER was seen by Michell Armando on 04/18/19 and that I had a [id number] encounter with this patient that meets the physician face to face encounter requirements. 2. Clinical Findings Supporting Skilled Need and Homebound Status I certify that home health services are medically necessary, include either intermittent senior living and/or physical/speech therapy, and that this patient is homebound in that absences from the home require considerable and taxing effort and are infrequent or of short duration, or are attributable to the need to receive medical care. [X] (a) Attached documentation from encounter provides clinical findings supporting skilled need and homebound status (including what assistance patient requires to leave the home). The encounter with the patient was in whole, or in part, for the following medical condition, which is the primary reason for home health care: Right ANKLE FRACTURE Assisted: Needed to assist with medication management, monitor medical conditions, assess right lower extremity. Physical Therapy: Needed to progress mobility level, assess home safety, identified additional equipment needs, establish a functional maintenance program. OT: Needed to assess home environment and make recommendations for equipment needs. ESCALATOR CONSTRUCTOR: Needed to assist with connecting with community resources as indicated. Speech Therapy: Homebound: Unable to leave home without assistance. 3. Certification and Authentication I certify that I composed the above information based on my clinical judgement relating to this patient's medical condition and, if applicable, clinical findings communicated to me by the NPP or inpatient physician who performed the Home Health Referral. All further orders will be obtained through Nadya Bland (Community Based Physician - PCP)
--- NOTE | 2019-04-18 13:45 | PT.INTREAT ---
Date of service: 04/18/19 Time of Service: 13:45 PT Notes Visit Reasons: ANKLE FRACTURE Inpatient Physical Therapy Treatment Note [facility] Date: 04/18/2019 PRECAUTIONS: Fall, PWB R SUBJECTIVE: Lizbeth states that she walked independently from her bed to the bathroom. OBJECTIVE: PAIN: No c/o pain BED MOBILITY/TRANSFERS Supine-sit: I with HOB flat Sit-stand: S Stand-sit: S GAIT Assistive Device: FWW Weight bearing: PWB R Assist: SBA Distance: 30' x2 Deviation: Cueing/instructions for WB precautions, seated rest due to fatigue, step-to pattern utilized TOILETING: Patient toileted with supervision for transfers ASSESSMENT: Patient tolerated session with complaint of increased fatigue. She was able to demonstrate independence with supine-sit transfer with HOB flat. Patient would benefit from continued gait and transfer training, as well as strengthening for improved mobility. PLAN: As per primary PT TREATMENT CODE/TIME: 30 minutes; [id number] x2
--- NOTE | 2019-04-18 16:00 | PT.INDS ---
Date of service: 04/18/19 Time of Service: 16:00 PT Notes Visit Reasons: ANKLE FRACTURE Inpatient Physical Therapy Discharge Summary Dates: 04/18/2019 Dates of Service: 04/17/2019 through 04/18/2019 This is a clinical summary of care provided on the duration of dates listed above. No charge was made in the completion of this documentation. Referring Doctor: Enoch Bryant MD PT Orders: PT CONSULT: Eval/treat. Precautions: Fall. Standard. Per Dr. Braun: Patient may use assist device as needed for ambulation. May rest RLE with splint on the ground as needed during stance or transfers. Recommend protected weight bearing (50%) otherwise as best possible. Continue elevation over next few days. Daily ROM to hip, knee, and toes. Patient Profile/Admitting Diagnosis: Patient is a 78-year-old female who presented to the ED on 04/16/2019 via EMS due to a mechanical fall while descending from a large pickup truck with a chief complaint of right ankle pain. Patient is diagnosed with a closed bimalleolar fracture of the right ankle and is status post close reduction with intra-articular block anesthesia followed by short leg splinting done by Dr. Braun on 04/16/2019. PMHX: Medical History Depression with anxiety (Chronic) Epilepsy (Acute 06/09/15) Glaucoma (Chronic) History of pulmonary embolism (Chronic) s/p Eliquis [id number]. Mild cognitive impairment (Chronic) Osteoporosis (Chronic) Surgical History History of carpal tunnel release (Acute) right History of repair of hiatal hernia (Acute) S/P cholecystectomy (Acute) Social History/Home Situation: Patient lives alone on the fifth floor of an apartment building in [facility]. She has a home health aide who comes in once a week to help with chores and laundry. Patient is independent with all all mobility ADL performance without the need for an assistive ambulatory device nor adaptive equipment prior to today's admission. Patient has a ramp to enter the apartment building. The length of the ramp is at least 50 feet and patient needs to push through heavy entrance doors manually in order to get in. She has about 10 to 15 feet from of the entrance door of her apartment to the elevator. Equipment Owned/DME: None Subjective: NT Objective: General Observation: NT Mental Status: NT Pain: NT ROM: Right Upper Extremity: Shoulder Flexion WFL. Shoulder abduction WFL. Elbow flexion WFL. Wrist flexion WFL. Opening and closing of hand WFL. Left Upper Extremity: Shoulder Flexion WFL. Shoulder abduction WFL. Elbow flexion WFL. Wrist flexion WFL. Opening and closing of hand WFL. Right Lower Extremity: Hip flexion WFL. Hip abduction WFL. Knee flexion allows up to 90 degrees limited by splint. Ankle dorsiflexion NT due to splint. Ankle plantarflexion NT due to splint. Left Lower Extremity: Hip flexion WFL. Hip abduction WFL. Knee flexion WFL. Ankle dorsiflexion WFL. Ankle plantarflexion WFL. Strength: Right Upper Extremity: Shoulder flexors 4/5. Shoulder abductors 4/5. Elbow flexors 5/5. Elbow extensors 5/5. Special Certificate Dictator strong. Left Upper Extremity: Shoulder flexors 5/5. Shoulder abductors 5/5. Elbow flexors 5/5. Elbow extensors 5/5. Special Certificate Dictator strong. Right Lower Extremity: Hip flexors 4/5. Hip abductors 4/5. Knee flexors 3-/5. Knee extensors 5/5. Ankle dorsiflexors NT. Ankle plantarflexors NT. Left Lower Extremity:Hip flexors 5/5. Hip abductors 5/5. Knee flexors 5/5. Knee extensors 5/5. Ankle dorsiflexors 5/5. Ankle plantarflexors 5/5. Sensation: Intact as to pain and pressure on bilateral lower extremities. Bed Mobility/Transfers: Rolling independent Supine to sit independent Sit to supine independent Sit to stand supervision Stand to sit supervision Bed to chair supervision Chair to bed supervision Gait: Patient tolerated 30 feet x 2 of level surface ambulation using the front wheeled walker with SBA. Balance: Static Sitting: Normal Dynamic Sitting: Normal Static Standing: Fair Dynamic Standing: Fair Assessment: Patient is a 78-year-old female who presented to the ED on 04/16/2019 via EMS due to a mechanical fall while descending from a large pickup truck with a chief complaint of right ankle pain. Patient is diagnosed with a closed bimalleolar fracture of the right ankle and is status post close reduction with intra-articular block anesthesia followed by short leg splinting done by Dr. Braun on 04/16/2019. Patient requires moderate to maximal cueing for correct weight bearing precaution, walker management, and directional changes. Patient will benefit from meals on wheels as she may not be able to safely work in the kitchen at all times due to weight-bearing precaution. She may need increased number of hours from home health aide for grocery shopping and laundry. She also will benefit from using a transport chair to negotiate the non-covered (no roof) ramp to the main entrance of the apartment building and will require assistance to push past the heavy entrance door of the building to get to the elevator. Patient continues to present with clinical signs and symptoms consistent with current/admitting diagnoses that have resulted to mobility limitations, gait instability, generalized weakness, and impairment of motor control as demonstrated by the following impairment level findings: 1. Decreased strength to R LE major muscle groups 2. Impaired standing balance 3. Impaired activity tolerance 4. Limitation of joint range of motion in R ankle due to splint 5. PWB on R LE Impairments continue to contributie to the following functional limitations: 1. Inability to safely ambulate without assistive device and physical assistance 2. Increase completion time for mobility ADL performance 3. Increased fall risk 4. Inability to negotiate steps alone safely Goals: Goals X1 week 1. Supine-Sit independent MET 2. Sit-Supine independent MET 3. Sit-Stand independent NOT MET 4. Stand-Sit independent NOT MET 5. Bed-Chair independent NOT MET 6. Chair-Bed independent NOT MET 7. Independent gait on level surface with use of least restrictive device for at least 100 feet without report of pain nor dyspnea NOT MET 8. Independent with home exercise program NOT MET 9. Good static and dynamic standing balance/tolerance NOT MET DISCHARGE RECOMMENDATIONS: Patient will benefit from meals on wheels as she may not be able to safely work in the kitchen at all times due to weight-bearing precaution. She may need increased number of hours from home health aide for assistance with automatic nailing machine feeder, grocery shopping, and laundry. She also will benefit from using a transport chair to negotiate the non-covered (no roof) ramp to the main entrance of the apartment building and will require assistance to push past the heavy entrance door of the building to get to the elevator. She will benefit from home health PT services in order to progress mobility level using least restrictive assistive ambulatory device, assess home safety, identify additional equipment needs, and establish a functional maintenance program that will increase ability of patient to remain at home. TREATMENT CODE/TIME: NC. Thank you very much for this referral. Qi Bhat PT, DPT, CLT [facility] [place], [place]
[2019-04-18 21:38] LABS: Vitamin D 25 Total 20.4 ng/ml (30-100)
== END 2019-04-18 16:27 | disposition home health service (06) | DRG 563 ==
LOC: ER 18:54 → MS 19:08
PROVIDERS: Internal Medicine; Admitting Provider General Practice; Emergency Provider Emergency Medicine; PCP Internal Medicine; Visit Provider General Practice
DX: S82.841A Displaced bimalleolar fracture of right lower leg, initial encounter for closed fracture (principal); G89.11 Acute pain due to trauma; V48.4XXA Person boarding or alighting a car injured in noncollision transport accident, initial encounter; Z86.711 Personal history of pulmonary embolism; Z79.82 Long term (current) use of aspirin; Z88.0 Allergy status to penicillin; F41.8 Other specified anxiety disorders; H40.9 Unspecified glaucoma; M81.0 Age-related osteoporosis without current pathological fracture; G40.909 Epilepsy, unspecified, not intractable, without status epilepticus
CPT/HCPCS: 27810; 36415; 80053; 82306; 86900; 86901; 96374; 96375; 97162; 97530; 99222; 99232; 99239; 99254; 99283; 99285; NC; 73560; 73610; 85025; 85049; 99284; E0114; J1644; J2405

== ENCOUNTER 2019-04-18 19:51 | Inpatient (IN) | payer MEDICARE, OTHER, SELFPAY ==
[2019-04-18 19:52] VITALS: BP 107/81; PULSE 84; RESP 16; TEMP 37.2; O2SAT 94
[2019-04-18 20:00] VITALS: RESP 16
--- NOTE | 2019-04-18 20:04 | W.ED.GENAD ---
Discharge Plan Disposition Patient Disposition: [facility] INPATIENT Condition: Good Discharge Details Chief Complaint: GenMedical Clinical Impression: Fall, Adult failure to thrive Primary Care Provider: Nadya Bland ED Provider: Calvin Foreman Home Meds and New Rx's Prescriptions: No Action aspirin 81 mg tablet,chewable 81 mg PO DAILY RF: 0 alendronate [Fosamax] 70 mg tablet 70 mg PO QWEEK RF: 0 levetiracetam 750 mg tablet 750 mg PO BID Qty: 180 RF: 3 loratadine [Claritin] 10 MG tablet 10 mg PO DAILY RF: 0 sertraline 100 mg tablet 100 mg PO DAILY RF: 0 latanoprost 0.005 % Drops 1 drp ophthalmic (eye) HS RF: 0 Medical Decision Making This is a 78-year-old female with a past medical history significant for epilepsy, depression with anxiety, glaucoma, mild cognitive impairment, osteoporosis, history of pulmonary embolism in the past he does take daily aspirin, who recently had a right-sided bimalleolar fracture, and was admitted. She was just discharged this afternoon at 4:30 PM with a walker as she had refused rehabilitation, and wanted to go home. She presents today for evaluation of multiple falls. Since she has been home the patient is fallen twice, both times she is not hurt herself when she is falling. She usually lands on her knees and catches herself with her hands. She has been brought in by EMS today after she was unable to get up off the floor after this last fall. She denies hitting her head. She has no pain in her knees elbows hands or wrist. She denies any complaints of numbness tingling or weakness. She states that her foot is actually relatively nonpainful. She denies fever, chills, cough, shortness of breath, dysuria, increased urinary frequency, chest pain, shortness of breath. She has no other complaints at this time. No other modifying factors. Exam is negative for any evidence of acute trauma. I did contact the employment evaluator/case manager Claudia, she agrees on the need for the patient to be admitted to swing bed for potential placement to rehab. Did contact Dr. Bryant and discussed the case with him. He agrees as well. At this time there is no evidence of acute infection with normal lung sounds, unremarkable vital signs, no fever. No urinary complaints at all. No evidence of new or acute trauma whatsoever. No indication for repeat imaging. Will admit the patient to swing bed for admission to rehab facility. I did discuss this with the patient and she agrees with this plan. I have extensively reviewed the treatment plan with the patient. I have addressed all patient concerns at this time. I have also discussed the plan with the admitting physician and they agree with the current assessment and plan and have agreed to assume responsibility for the patient. All parties demonstrate verbal understanding and agreement with our assessment and plan at this time. HPI General Date/Time Provider Initiated Documentation: 04/18/19 20:04. HPI Narrative: This is a 78-year-old female with a past medical history significant for epilepsy, depression with anxiety, glaucoma, mild cognitive impairment, osteoporosis, history of pulmonary embolism in the past he does take daily aspirin, who recently had a right-sided bimalleolar fracture, and was admitted. She was just discharged this afternoon at 4:30 PM with a walker as she had refused rehabilitation, and wanted to go home. She presents today for evaluation of multiple falls. Since she has been home the patient is fallen twice, both times she is not hurt herself when she is falling. She usually lands on her knees and catches herself with her hands. She has been brought in by EMS today after she was unable to get up off the floor after this last fall. She denies hitting her head. She has no pain in her knees elbows hands or wrist. She denies any complaints of numbness tingling or weakness. She states that her foot is actually relatively nonpainful. She denies fever, chills, cough, shortness of breath, dysuria, increased urinary frequency, chest pain, shortness of breath. She has no other complaints at this time. No other modifying factors. Related Data Home Medications Medication Instructions Recorded Confirmed loratadine [Claritin] 10 mg PO DAILY tab-cap 09/13/17 04/18/19 alendronate 70 mg tablet 70 mg PO QWEEK 12/25/17 04/18/19 aspirin 81 mg chewable tablet 81 mg PO DAILY 12/25/17 04/18/19 sertraline 100 mg tablet 100 mg PO DAILY tab 12/25/17 04/18/19 latanoprost 1 drp OPHTHALMIC (EYE) HS 08/06/18 04/18/19 levetiracetam 750 mg tablet 750 mg PO BID #180 tab 02/24/19 04/18/19 Previous Rx's Medication Instructions Recorded levetiracetam 750 mg tablet 750 mg PO BID #180 tab 02/24/19 Allergies Allergy/AdvReac Type Severity Reaction Status Date / Time chlorpromazine HCl Allergy Unverified 04/16/19 09:28 [From Thorazine] penicillin Allergy Unverified 04/16/19 09:28 General Stated Complaint: GenMedical ANITHA: 3 Review of Systems All systems reviewed & are unremarkable except as noted in HPI and below PFSH Social History Smoking/Tobacco Use Status: Never Alcohol Intake: never Drug use: Never Substance use type: does not use Number of Children: 1 Do you feel safe at home: Yes Do you feel safe in your relationship?: Yes Additional Social history: She has one son. Niece Rupinder often helps/involved. No smoking, ETOH, or illicit drug use. Pt is living at [facility] and is feeling unsafe due to neighbors being loud and pounding on goodman and doors. Exam Narrative Exam Narrative: 1.Const: Well-nourished, Well-developed, appearing stated age 2.Eyes: PERRL, no conjunctival injection, and symmetrical lids. 3.ENT: Atraumatic external nose and ears. Moist MM. Neck: Symmetric, trachea midline, No thyromegaly. Patient demonstrates intact dentition with no signs of tooth avulsion or fracture, no signs of jaw deformity, no evidence of a LeFort's fracture, with an intact palate, nose and orbital region. There is no evidence of a nasal septal hematoma. No proptosis. Jaw closes symmetrically. Airway is clear. There is no evidence of raccoon eyes, jonse sign, CSF rhinorrhea, mastoid tenderness, cranial crepitus, hemotympanum, exophthalmos, or hyphema. 4.CVS: +S1/S2, No murmurs or gallops. Peripheral pulses 2+ and equal in all extremities. Brisk capillary refill in all extremities. 5.RESP: Unlabored respiratory effort. Clear to auscultation bilaterally. No wheezes rales or rhonchi 6.GI: Soft, Nontender/Nondistended, No hepatosplenomegaly. No guarding or rebound. 7.MSK: Patient demonstrates a in place cast on the right lower extremity. Capillary refill is brisk in all toes, sensation intact. No pain. No gross deformities or discolorations or lesions. Tolerates full range of motion of extremities without tenderness. All compartments of upper and lower extremities are soft with no tenderness. Vascular exam demonstrates brisk capillary refill and intact pulses in all extremities. Pelvic exam demonstrates a stable pelvis, nontender to lateral compression and palpation of symphysis pubis.. No clinical evidence of significant musculoskeletal trauma. No pain in the midline cervical thoracic or lumbar spine. 8.Skin: Warm, Dry. No rashes or lesions. 9.Neuro: crystalizer tender II-XII grossly intact. Sensation grossly intact, no focal neurologic deficits. 10.Psych: (AAO) x3. Appropriate mood and affect Course Vital Signs Vital signs: Vital Signs Temperature 37.2 C 04/18/19 19:52 Pulse 84 04/18/19 19:52 Respiratory Rate 16 04/18/19 19:52 Blood Pressure 107/81 04/18/19 19:52 Pulse Oximetry 94 L 04/18/19 19:52 Temperature 37.2 C 04/18/19 19:52 Temperature Source Oral 04/18/19 19:52 Pulse 84 04/18/19 19:52 Respiratory Rate 16 04/18/19 20:00 Respiratory Effort 04/18/19 20:00 Respiratory Depth Normal 04/18/19 20:00 Respiratory Pattern Normal 04/18/19 20:00 Blood Pressure 107/81 04/18/19 19:52 Blood Pressure Position Supine 04/18/19 19:52 Pulse Oximetry 94 L 04/18/19 19:52 Oxygen Delivery Method Room Air 04/18/19 19:52 Oxygen Flow Rate 0 04/18/19 19:52 Pain Level 0 04/18/19 19:52
--- NOTE | 2019-04-18 20:28 | HPE_ITS ---
Date of service: 04/18/19 Time of Service: 20:28 Assessment and Plan Assessment and plan (1) Ankle fracture: Status: Acute Assessment and plan: Ankle fracture, unable to manage at home. Will admit directly to [facility] status for further rehab. No new injuries other than insignificant abrasion right knee. Continued pain control with prn Tylenol, and DVT prophylaxis per Ortho (ASA 325 qd). Usual meds as is otherwise. History of Present Illness History of Present Illness Chief Complaint: fall Narrative: 78 female discharged just this afternoon following right ankle fracture, treated by closed reduction and splint. At home she fell twice and returns to ER. No injuries exce pt scrape to right knee, which does not hurt, and no pain otherwise. Admitted for further rehab as events clearly demonstrate she is not safe to bee at home. Review of Systems All systems reviewed & are unremarkable except as noted in HPI and below PFSH Medical History Depression with anxiety (Chronic) Epilepsy (Acute 06/09/15) Glaucoma (Chronic) History of pulmonary embolism (Chronic) s/p Eliquis [id number]. Mild cognitive impairment (Chronic) Osteoporosis (Chronic) Social History Smoking/Tobacco Use Status: Never Alcohol Intake: never Drug use: Never Substance use type: does not use Number of Children: 1 Do you feel safe at home: Yes Do you feel safe in your relationship?: Yes Additional Social history: She has one son. Niece Rupinder often helps/involved. No smoking, ETOH, or illicit drug use. Pt is living at [facility] and is feeling unsafe due to neighbors being loud and pounding on goodman and doors. Meds Home Medications and Allergies Home Medications Medication Instructions Recorded Confirmed Type loratadine [Claritin] 10 mg PO DAILY tab-cap 09/13/17 04/18/19 History alendronate 70 mg tablet 70 mg PO QWEEK 12/25/17 04/18/19 History aspirin 81 mg chewable tablet 81 mg PO DAILY 12/25/17 04/18/19 History sertraline 100 mg tablet 100 mg PO DAILY tab 12/25/17 04/18/19 History latanoprost 1 drp OPHTHALMIC (EYE) HS 08/06/18 04/18/19 History levetiracetam 750 mg tablet 750 mg PO BID #180 tab 02/24/19 04/18/19 Rx Allergies Allergy/AdvReac Type Severity Reaction Status Date / Time chlorpromazine HCl Allergy Unverified 04/16/19 09:28 [From Thorazine] penicillin Allergy Unverified 04/16/19 09:28 Exam Narrative Exam Narrative: 107/81, 84, 16, 37.2. HEENT AT/NC; neck supple, lungs clear; heart RRR w/o MRG; abdomen sofft and NT; pelvic/rectal ddeferredd; extremities splint right leg, distal CSM intact, 2 cm skin tear overlying right patella with surrounding, erythema, area is not tender Results Last Vital Signs Temp 37.2 C 04/18/19 19:52 Pulse 84 04/18/19 19:52 Resp 16 04/18/19 20:00 BP 107/81 04/18/19 19:52 Pulse Ox 94 L 04/18/19 19:52
--- NOTE | 2019-04-18 20:28 | NUR.NOTE ---
ANGELITAGilmar Mcguire from home with c/o multiple falls. Pt admitted on 04/15 for right ankle fx s/p fall. Pt had splint placed, worked with PT and was DC home today with plan for home health to work with pt. Pt states she was offered to go to rehab but declined. Went home today and had 2 mechanical falls. Denies head strike, denies other injury. Bruise to right knee with blood under skin surface, no active bleeding. States she was using walker at home and was unable to hold self up. Report to Rachel. Transferred to 216
[2019-04-18 21:28] VITALS: BP 159/71; PULSE 75; RESP 16; TEMP 36.4; O2SAT 92
[2019-04-18] MEDS: Acetaminophen 325 MG TAB 650 MG PO (22:54)
[2019-04-18] MEDS: Latanoprost 0.005% 2.5 ML BTL OP (22:55)
[2019-04-19 01:10] VITALS: BP 124/63; PULSE 65; RESP 16; TEMP 36.8; O2SAT 90
[2019-04-19 01:15] VITALS: O2SAT 90
[2019-04-19 08:10] VITALS: BP 147/65; PULSE 63; RESP 18; TEMP 37; O2SAT 97
--- NOTE | 2019-04-19 08:14 | PHARADMIT ---
Addendum entered by Marlena Allen 04/21/19 13:25: VS-okay no labs nothing new per morning report pt is working with PT no med changes so far today Addendum entered by Ruben Staton III 04/20/19 13:27: PATIENT BOUNCED BACK HOURS AFTER BEING DISCHARGED ON SUNDAY. UNABLE TO CARE FOR SELF AND WILL NEED PLACEMENT. CM WORKING ON IT. VS-OK No Labs No Med changes. AWAITING PLACEMENT. Original Note: Admission Pharmacy Clinical Review FAILURE TO THRIVE, FALL (Ankle Fx) Code Status Full Code Current Weight Wgt-93.5 kg Renally Cleared and Narrow Therapeutic Index Meds CrCl~47.3 mL/min Meds-OK QTc Value / Action Taken none current BP Control, Fever BP-124/63 Electrolytes reviewed na DVT Prophylaxis ASA Opiate Usage / Scheduled Bowel Regimen Ordered No No Plt/SCr for Heparin / Enoxaparin Plts-168 SCr-0.63 INR for Warfarin na H/H stable, WBC/Bands na Antibiotic appropriateness na Cultures and Sensitivities na Surgical ABX d/c within 24 hr na DM control / Insulin Dosing na Heart Failure (Check EF%) (ISAAC's, B-Block, Diuretics) none IV to PO Switch No Home Meds Reviewed Yes Home Meds Not Ordered Tegretol Comments
[2019-04-19] MEDS: Sertraline 50 MG TAB 100 MG PO (08:16)
[2019-04-19] MEDS: levETIRAcetam 250 MG TAB 750 MG PO ×2 (08:16→19:55)
[2019-04-19] MEDS: Aspirin 325 MG TAB PO (08:16)
[2019-04-19] MEDS: Loratidine 10 MG TAB PO (08:16)
[2019-04-19] MEDS: Normal Saline Flush 10 ML SYR IVP (08:17)
--- NOTE | 2019-04-19 10:16 | PT.INIE ---
Date of service: 04/19/19 Time of Service: 10:17 PT Notes Visit Reasons: FAILURE TO THRIVE, FALLS PT Initial Evaluation PATIENT NAME:SCOTTIE SPRINGER #: [id number] ADMITTING PROVIDER: Olayinka Weathers, SACHA PRIMARY CARE PROVIDER: Enoch Bryant MD DATE OF ADMIT : 04/19/2019 : 1940 Date of service: 04/19/2019 Time of Service: 0 9:30 PT Notes Visit Reasons: Bimalleolar fracture right ankle Physical Therapy Inpatient Initial Evaluation Date: 04/19/2019 Referring Doctor: Enoch Bryant MD PT Orders: PT CONSULT: Eval/treat. Precautions: Fall. Standard. Per Dr. Braun: Patient may use assist device as needed for ambulation. May rest RLE with splint on the ground as needed during stance or transfers. Recommend protected weight bearing (50%) otherwise as best possible. Continue elevation over next few days. Daily ROM to hip, knee, and toes. Patient Profile/Admitting Diagnosis: Patient is a 78-year-old female who presented to the ED on 04/16/2019 via EMS due to a mechanical fall while descending from a large pickup truck with a chief complaint of right ankle pain. Patient is diagnosed with a bimalleolar fracture of the right ankle and is status post close reduction with intra-articular block anesthesia followed by short leg splinting done by Dr. Braun on 04/16/2019. She was discharged home yesterday, but fell twice, and has been readmitted on swing bed status PMHX: Medical History Depression with anxiety (Chronic) Epilepsy (Acute 06/09/15) Glaucoma (Chronic) History of pulmonary embolism (Chronic) s/p Eliquis [id number]. Mild cognitive impairment (Chronic) Osteoporosis (Chronic) Surgical History History of carpal tunnel release (Acute) right History of repair of hiatal hernia (Acute) S/P cholecystectomy (Acute) Social History/Home Situation: Patient lives alone on the fifth floor of an apartment building in [facility]. She has a home health aide who comes in once a week to help with chores and laundry. Patient is independent with all all mobility ADL performance without the need for an assistive ambulatory device nor adaptive equipment prior to today's admission. Patient has a ramp to enter the apartment building. The length of the ramp is at least 50 feet and patient needs to push through heavy entrance doors manually in order to get in. She has about 10 to 15 feet from of the entrance door of her apartment to the elevator. Equipment Owned/DME: None Subjective: Patient states she was little disappointed that she is been unable to safely stay in her apartment yet. She is hopeful that should be able to return there soon. Objective: General Observation: Leg splint on right LE. IV access open in right UE. Mental Status: Alert and oriented x4 Pain: 1-2/10 on right LE ROM: Right Upper Extremity: Shoulder Flexion WFL. Shoulder abduction WFL. Elbow flexion WFL. Wrist flexion WFL. Opening and closing of hand WFL. Left Upper Extremity: Shoulder Flexion WFL. Shoulder abduction WFL. Elbow flexion WFL. Wrist flexion WFL. Opening and closing of hand WFL. Right Lower Extremity: Hip flexion WFL. Hip abduction WFL. Knee flexion allows up to 90 degrees limited by splint. Ankle dorsiflexion NT due to splint. Ankle plantarflexion NT due to splint. Left Lower Extremity: Hip flexion WFL. Hip abduction WFL. Knee flexion WFL. Ankle dorsiflexion WFL. Ankle plantarflexion WFL. Strength: Right Upper Extremity: Shoulder flexors 4/5. Shoulder abductors 4/5. Elbow flexors 5/5. Elbow extensors 5/5. Baggage Porter Head strong. Left Upper Extremity: Shoulder flexors 5/5. Shoulder abductors 5/5. Elbow flexors 5/5. Elbow extensors 5/5. Baggage Porter Head strong. Right Lower Extremity: Hip flexors 4/5. Hip abductors 4/5. Knee flexors 3-/5. Knee extensors 5/5. Ankle dorsiflexors NT. Ankle plantarflexors NT. Left Lower Extremity:Hip flexors 5/5. Hip abductors 5/5. Knee flexors 5/5. Knee extensors 5/5. Ankle dorsiflexors 5/5. Ankle plantarflexors 5/5. Sensation: Intact as to pain and pressure on bilateral lower extremities. Bed Mobility/Transfers: Rolling SBA Supine to sit SBA with HOB at 45 degrees Sit to supine SBA with HOB at 45 degrees Sit to stand SBA Stand to sit SBA Bed to chair SBA Chair to bed SBA Gait: Patient tolerated 60 to 70 feet of level surface ambulation using the front wheeled walker with SBA of PT and wheelchair with partial weight bearing on the right LE. I encouraged minimal weightbearing. Patient complained of some mild left ankle and lateral hip discomfort after 50 feet or so of ambulation. This resolved when she was sitting. Encouraged her to have somebody bring in her walking shoe from home, left available, try walking with her boot to see if this decreases her weightbearing discomfort in her left ankle. She complained about fatigue on bilateral upper extremities as well on her left LE. Patient requires moderate to maximal cueing to ensure correct weight bearing technique on R LE. No ncreased pain Balance: Static Sitting: Normal Dynamic Sitting: Normal Static Standing: Fair Dynamic Standing: Fair Special Tests: Mobility Limitations Standardized Measure [facility] AM-PAC 6 clicks Basic Mobility Inpatient Short Form: Raw Score: 14 CMS Score: 61.29% deficit Informed Consent/Education: Patient instructed in purpose of PT consult and plan of care. Assessment: Patient is a 78-year-old female who presented to the ED on 04/16/2019 via EMS due to a mechanical fall while descending from a large pickup truck with a chief complaint of right ankle pain. Patient is diagnosed with a bimalleolar fracture of the right ankle and is status post close reduction with intra-articular block anesthesia followed by short leg splinting done by Dr. Braun on 04/16/2019. She returned home yesterday, but fell twice, has been readmitted on a swing bed status. Patient requires moderate to maximal cueing for correct weight bearing precaution, walker management, and directional changes. Patient will benefit from meals on wheels as she may not be able to safely work in the kitchen at all times due to weight-bearing precaution. She may need increased number of hours from home health aide for grocery shopping and laundry. She also will benefit from using a transport chair to negotiate the non-covered (no roof) ramp to the main entrance of the apartment building and will require assistance to push past the heavy entrance door of the building to get to the elevator, upon discharge later date. We will review these recommendations at the time of discharge. Patient presents with clinical signs and symptoms consistent with current/admitting diagnoses that have resulted to mobility limitations, gait instability, generalized weakness, and impairment of motor control as demonstrated by the following impairment level findings: 1. Decreased strength to R LE major muscle groups 2. Impaired standing balance 3. Impaired activity tolerance 4. Limitation of joint range of motion in R ankle due to splint 5. PWB on R LE Impairments are contributing to the following functional limitations: 1. Inability to safely ambulate without assistive device and physical assistance 2. Increase completion time for mobility ADL performance 3. Increased fall risk 4. Inability to negotiate steps alone safely Patient is assessed as a 16514 moderate complexity based on the following: History: 78-year-old female status post close reduction of right bilateral malleolar fracture with long-leg splint placement with past medical history listed above, impairment level findings, functional limitations, and [facility] CMS deficit score of 61.29% Examination: Demonstrable impairment in strength, balance, and range of motion with underlying impairments and functional limitations as documented above Presentation: Evolving Decision Makin moderate complexity Goals: Goals X1 week 1. Supine-Sit independent 2. Sit-Supine independent 3. Sit-Stand independent 4. Stand-Sit independent 5. Bed-Chair independent 6. Chair-Bed independent 7. Independent gait on level surface with use of least restrictive device for at least 100 feet without report of pain nor dyspnea 8. Independent with home exercise program 9. Good static and dynamic standing balance/tolerance Plan of Care/Treatment Plan: 1-2x/day, 7 days/week x 1 week. Plan of care has been reviewed with the OLIVE PICKER providing the service under Physical Therapy direction. Initiate Physical Therapy intervention for strengthening, bed mobility, transfers, gait, stairs, balance training, use of assistive device. DISCHARGE RECOMMENDATIONS: Patient will benefit from meals on wheels as she may not be able to safely work in the kitchen at all times due to weight-bearing precaution. She may need increased number of hours from home health aide for assistance with checker dump grounds, grocery shopping, and laundry. She also will benefit from using a transport chair to negotiate the non-covered (no roof) ramp to the main entrance of the apartment building and will require assistance to push past the heavy entrance door of the building to get to the elevator. She will benefit from home health PT services in order to progress mobility level using least restrictive assistive ambulatory device, assess home safety, identify additional equipment needs, and establish a functional maintenance program that will increase ability of patient to remain at home. TREATMENT CODE/TIME: 61225 x 45 minutes, 59987 x 10 minutes beginning at 9:30 AM. Thank you very much for this referral. Olayinka Weathers, PT [facility] [place], [place]
--- NOTE | 2019-04-19 11:44 | PDOC.CMIN ---
Care Management Initial Assess REASON FOR HOSPITALIZATION:: Failure to Thrive, Falls PAST MEDICAL HISTORY/PAST SURGICAL HISTORY:: Epilepsy, depression, anxiety, mild cognitive impairment, glaucoma, pulmonary embolism, osteoporosis, repair of fracture of the right ankle PREVIOUS FUNCTIONAL STATUS/SOCIAL/FAMILY SUPPORTS:: Lizbeth resides alone in [facility] in [place] [facility]. She was previously independent with ADLs including meals and utilized the taxi service for transportation. She has moderate needs choices for care and her family independence case manager through [employer] is Mckenna Amaya. She reports several friends in the community provide support.
--- NOTE | 2019-04-19 12:01 | CM.SBPSYCH ---
- If Service Date Differs Date of service: 04/18/19 SB Psychosocial/Act.Assessment - Hospital Admission Admission Date: 04/18/19 Admission From:: Home, hours after inpatient discharge. Diagnosis:: Failure to Thrive, Falls. - Swing Bed Admission Swing Bed Admit Date:: 04/18/19 Swing Bed Level of Care: Level 1/SNF - Social Supports PREVIOUS FUNCTIONAL STATUS/SOCIAL/FAMILY SUPPORTS:: Lizbeth resides alone in [facility] in the [facility]. She shares that she has been since the early and was for two years. She has four brothers, two reside locally, one in [place], [place] and the other splits time between [place], [place] and [place]. Her closest brother had a heart attack two weeks ago. Her niece, Rupinder runs her own [employer] business. Lizbeth was previously independent with ADLs including meals and utilized the [employer] service for transportation. She has moderate needs choices for care and her immigration case worker through [employer] is Mckenna Amaya. She reports several friends in the community provide support. Lizbeth suffered an ankle fracure a few days ago and now is unable to safely ambulate. She was admitted to [facility] for pain management and support mobilizing and found to be independent with transfers prior to discharge. Lizbeth was not agreeable to rehab, though PT did recommend upon discharge. She represented to the ER within hours of discharge and pererica VASQUES, reported she was agreeable to SNF stay as she had fallen twice shortly after returning home. She does not have a payer source for facility stay, and reports she is not agreeable to SNF stay. - Prior to Admission Living Arrangements/Environment Prior to Admission:: Residing alone at [facility]; independent handicap accessible. Services at [facility]: CM: Mckenna Sparks. Volunteer Joanna Rebolledo provides financial oversight. Mod [facility] Homemaker 1x/wk per patient report. - Education Highest Grade Completed:: High School Graduate: [employer] in [employer]. Adult Education classes at [employer]: Computer classes and Medical Terminology. Special Education/Training:: Bookeeping and Medical terminology - Work History Employment Status:: Retired from [employer] and [employer] ([employer]). 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 - [place]: No 's Spouse: No - Benefits Financial: Social Security, Other Pension ([facility] Medicare, Commerical ([employer] replacement) - Scientology Active Hoahaoism Member:: Yes Hoahaoism Affliation: Jainism: [facility] Will Hoahaoism Members or Archives Specialist Visit:: Yes Importance of Shaniqua:: Religiously faithful. - Advance Directives for Healthcare Advance Directives for Healthcare: Advance Directives Advance Directive Agent: Jai Zuñiga - Community Community Supports/Involvement: Hoahaoism - Interests Reading:: [employer] - Present Functional Status Physical Abilities:: Deconditioned, frequent falls prior to ankle fracture; frequent falls since. Cognitive:: Alert and oriented. PMH states mild cognitive delay; not apparent during extensive CM assessment. CM completed financial assistance application; Lizbeth provided all financial information, bills and added her own income components. Communication:: Appropriate, pleasant. Behavior:: Appropriate, pleasant, cooperative. - Medical History PAST MEDICAL HISTORY/PAST SURGICAL HISTORY:: Epilepsy, depression, anxiety, mild cognitive impairment, glaucoma, pulmonary embolism, osteoporosis, repair of fracture of the right ankle Past Psychiatric Treatment:: N/A - Admission Data Reason for Swing Bed Admission:: Failure to Thrive, inability to safely ambulate, residing alone with lack of supports, no current payer source for SNF Discharge Plan:: SNF with payer source [id number] when independent with increased services. Will complete application for [facility]REW and Financial Asst. Assessment: Physical therapy, occupational therapy, navigation and bi application developer for increased services Electric Meter Installer: Claudia Gould Date Assessment was completed:: 04/19/19
--- NOTE | 2019-04-19 12:02 | CM.SWINGPC ---
- If Service Date Differs Date of service: 04/18/19 Swingbed Plan of Care Plan of care: SWING BED PROGRAM ACTIVITIES/DISCHARGE PLAN OF CARE ACTIVITIES PLAN Date: 04/18/19 Identified Need: Life enrichment while inpatient Intervention/Plan: Therapy dogs, Reiki, Music Therapy, CART items Initials: MICAH DISCHARGE PLAN Date: 04/18/18 Identified Need: Financial payer support, Frequent falls, Discharge failure Intervention/Plan: [facility] Financial assistance application, [facility] ANDREW application, Placement coordination. Initials: MICAH
[2019-04-19] MEDS: Acetaminophen 325 MG TAB 650 MG PO (15:06)
[2019-04-19 15:10] VITALS: BP 114/61; PULSE 69; RESP 18; TEMP 37.2; O2SAT 93
[2019-04-19] MEDS: Latanoprost 0.005% 2.5 ML BTL OP (19:55)
[2019-04-19 23:32] VITALS: BP 128/73; PULSE 76; RESP 17; TEMP 36.7; O2SAT 94
[2019-04-20] MEDS: Alendronate 70 MG TAB PO (06:00)
[2019-04-20 07:48] VITALS: BP 145/74; PULSE 72; RESP 14; TEMP 37; O2SAT 93
[2019-04-20] MEDS: Aspirin 325 MG TAB PO (08:49)
[2019-04-20] MEDS: Loratidine 10 MG TAB PO (08:50)
[2019-04-20] MEDS: Sertraline 50 MG TAB 100 MG PO (08:50)
[2019-04-20] MEDS: levETIRAcetam 250 MG TAB 750 MG PO ×2 (08:50→20:08)
--- NOTE | 2019-04-20 10:12 | PT.INTREAT ---
Date of service: 04/20/19 Time of Service: 09:15 PT Notes Visit Reasons: FAILURE TO THRIVE, FALLS Inpatient Physical Therapy Treatment Note [facility] Date: 04/20/19 PRECAUTIONS:No more then 50% wt bearing on involved LE SUBJECTIVE: Pt reports that she is fatigued today. Pt reports that her un involved LE is more tired due to requiring more from it because of the 50% wt bearing on the involved. OBJECTIVE: Sit-supine: SBA Sit-stand: SBA Stand-sit: SBA GAIT Assistive Device: FWW Weight bearing: No more then 50% wt bearing on R LE Assist: CGA Distance: From the bathroom to the bed. Pt was too fatigued to complete anymore ambulation this am. THEREX: Pt completed UE and LE ther ex while in the seated position as per flow sheet with a 2.5# wt on the uninvolved LE. Pt also completed sit to stands as per flow sheet. ASSESSMENT: Pt tolerated today's session fairly well. Pt did seem somewhat fatigued today and was not able to tolerate a lot today during her session. PLAN: Cont as per PT POC as per dominic. TREATMENT CODE/TIME: 15 TP
[2019-04-20 15:56] VITALS: BP 118/75; PULSE 63; RESP 17; TEMP 36.7; O2SAT 96
[2019-04-20] MEDS: Acetaminophen 325 MG TAB 650 MG PO (21:42)
[2019-04-20] MEDS: Latanoprost 0.005% 2.5 ML BTL OP (21:42)
[2019-04-20 23:58] VITALS: BP 148/77; PULSE 72; RESP 18; TEMP 37; O2SAT 94
[2019-04-21 07:32] VITALS: BP 138/74; PULSE 68; RESP 17; TEMP 36; O2SAT 95
[2019-04-21] MEDS: Aspirin 325 MG TAB PO (07:45)
[2019-04-21] MEDS: Loratidine 10 MG TAB PO (07:45)
[2019-04-21] MEDS: levETIRAcetam 250 MG TAB 750 MG PO ×2 (07:45→19:54)
[2019-04-21] MEDS: Sertraline 50 MG TAB 100 MG PO (07:45)
--- NOTE | 2019-04-21 14:17 | CHAPLAIN ---
Lizbeth was in bed when I visited. She told me that she had fractured her ankle and is hoping to avoid going to a rehab before going home. She said she lives in [address] and has friends there who check on her. Lizbeth was trying to nap when I arrived, so I didn't stay long. Lizbeth said she is Anabaptism, but is happy to talk with people of any liv. I will plan to visit again tomorrow.
[2019-04-21 15:35] VITALS: BP 146/82; PULSE 82; RESP 17; TEMP 36.9; O2SAT 96
[2019-04-21] MEDS: Latanoprost 0.005% 2.5 ML BTL OP (21:54)
[2019-04-21] MEDS: Acetaminophen 325 MG TAB 650 MG PO (22:17)
[2019-04-21 23:40] VITALS: BP 103/61; PULSE 66; RESP 17; TEMP 36.7; O2SAT 96
[2019-04-22] MEDS: Acetaminophen 325 MG TAB 650 MG PO ×2 (04:56→21:18)
[2019-04-22 07:30] VITALS: BP 122/78; PULSE 59; RESP 22; TEMP 36.7; O2SAT 92
--- NOTE | 2019-04-22 07:45 | PT.INTREAT ---
Date of service: 04/22/19 Time of Service: 07:46 PT Notes Visit Reasons: FAILURE TO THRIVE, FALLS Inpatient Physical Therapy Treatment Note [facility] Date: 04/21/2019 PRECAUTIONS: Fall, PWB R SUBJECTIVE: Lizbeth states that she has no pain, she is agreeable to participating in PT following some encouragement. She also reports that she is concerned regarding paying her bills and phone calls that she may be receiving at home. OBJECTIVE: PAIN: No c/o pain BED MOBILITY/TRANSFERS Supine-sit: I with HOB flat Sit-stand: I Stand-sit: I GAIT Assistive Device: FWW Weight bearing: PWB R Assist: S Distance: 125' + 50' Deviation: Seated rest x1 ASSESSMENT: Patient tolerated session without complaint of pain, but with increased fatigue. She was able to demonstrate independence with supine-sit with HOB flat and transfers. Patient would benefit from limited balance retraining, due to weight bear precautions, as well as wheelchair mobility training. PLAN: Continue with PT's POC TREATMENT CODE/TIME: 30 minutes; [id number] x2
[2019-04-22] MEDS: Sertraline 50 MG TAB 100 MG PO (09:20)
[2019-04-22] MEDS: Aspirin 325 MG TAB PO (09:20)
[2019-04-22] MEDS: levETIRAcetam 250 MG TAB 750 MG PO ×2 (09:20→20:13)
[2019-04-22] MEDS: Loratidine 10 MG TAB PO (09:20)
--- NOTE | 2019-04-22 11:38 | PT.INTREAT ---
Date of service: 04/22/19 Time of Service: 11:38 PT Notes Visit Reasons: FAILURE TO THRIVE, FALLS Inpatient Physical Therapy Treatment Note [facility] Date: 04/22/2019 PRECAUTIONS: Fall, PWB R SUBJECTIVE: Lizbeth is agreeable to participating in PT. She reports that she is feeling tired because she had a rough night. OBJECTIVE: PAIN: No c/o pain BED MOBILITY/TRANSFERS Supine-sit: I with HOB flat Sit-supine: I with HOB flat Sit-stand: I Stand-sit: I GAIT Assistive Device: FWW Weight bearing: PWB R Assist: S Distance: 15' + 50' Deviation: Seated rest x1 WHEELCHAIR MOBILITY: Patient completed wc mobility training x50' with supervision. She requires minimal cueing for safety. She demonstrates independence with engaging and use of locks at appropriate times. THEREX: Patient completed a LE strengthening program, in a supine position, as per flow sheet. ASSESSMENT: Patient tolerated session without complaint of pain, but with increased fatigue. She was able to demonstrate independence with bed mobility and transfers at this time. She demonstrates good understanding of appropriate and safe wc mobility. PLAN: Continue with PT's POC TREATMENT CODE/TIME: 30 minutes; [id number], [id number]
--- NOTE | 2019-04-22 12:30 | W.NUTRFU ---
Date of service: 04/22/19 Time of Service: 12:30 Nutritional Follow up NOTE: Lizbeth has remained nutritionally stable in last couple of days. Continues with excellent po intake, labs reviewed. Will follow prn. Time Spent in Nutritional Counseling and Treatment: 0 time spent face to face
--- NOTE | 2019-04-22 15:45 | DI.RAD_ITS ---
EXAM: XR ANKLE RT COMPLETE INDICATION: F/U FILM RIGHT ANKLE FX. COMPARISON: XR ANKLE RT COMPLETE from 04/16/2019 XR ANKLE RT COMPLETE from 04/16/2019 TECHNIQUE: 2D digital imaging was performed. FINDINGS: The patient's ankle is in a cast, which does obscure the underlying bony detail. There does not appe ar to be significant change in alignment of the fractures of the medial and lateral malleoli. No new fractures identified.
[2019-04-22 16:36] VITALS: BP 119/75; PULSE 72; RESP 18; TEMP 36.6; O2SAT 94
[2019-04-22] MEDS: Latanoprost 0.005% 2.5 ML BTL OP (20:14)
[2019-04-23 04:16] VITALS: BP 123/78; PULSE 62; RESP 18; TEMP 36.6; O2SAT 95
[2019-04-23 07:20] VITALS: BP 119/76; PULSE 58; RESP 20; TEMP 36.7; O2SAT 92
[2019-04-23] MEDS: levETIRAcetam 250 MG TAB 750 MG PO ×2 (08:53→19:51)
[2019-04-23] MEDS: Sertraline 50 MG TAB 100 MG PO (08:53)
[2019-04-23] MEDS: Loratidine 10 MG TAB PO (08:53)
[2019-04-23] MEDS: Aspirin 325 MG TAB PO (08:53)
[2019-04-23 10:07] VITALS: O2SAT 95
[2019-04-23 15:10] VITALS: BP 120/68; PULSE 60; RESP 20; TEMP 36.6; O2SAT 93
--- NOTE | 2019-04-23 15:11 | PT.INTREAT ---
Date of service: 04/23/19 Time of Service: 15:11 PT Notes Visit Reasons: FAILURE TO THRIVE, FALLS Inpatient Physical Therapy Treatment Note [facility] Date: 04/23/2019 PRECAUTIONS: Fall, PWB R SUBJECTIVE: Lizbeth is agreeable to participating in PT. OBJECTIVE: PAIN: Patient reports that R ankle is a little sore today. BED MOBILITY/TRANSFERS Sit-supine: I Sit-stand: I Stand-sit: I GAIT Assistive Device: FWW Weight bearing: PWB R Assist: S Distance: 50' + 125' Deviation: Seated rest x1, UE fatigue THEREX: Patient completed a LE strengthening program, in standing (with R LE only), seated, and supine positions, as per flow sheet. ASSESSMENT: Patient tolerated session with minimal complaint of R ankle soreness with gait training. PLAN: Continue with PT's POC TREATMENT CODE/TIME: 30 minutes; [id number], [id number]
[2019-04-23] MEDS: Latanoprost 0.005% 2.5 ML BTL OP (19:59)
[2019-04-23] MEDS: Acetaminophen 325 MG TAB 650 MG PO (20:43)
[2019-04-24 02:30] VITALS: BP 114/63; PULSE 57; RESP 20; TEMP 36.6; O2SAT 95
[2019-04-24 07:33] VITALS: BP 137/62; PULSE 63; RESP 18; TEMP 36.6; O2SAT 95
[2019-04-24] MEDS: Aspirin 325 MG TAB PO (08:22)
[2019-04-24] MEDS: levETIRAcetam 250 MG TAB 750 MG PO (08:22)
[2019-04-24] MEDS: Sertraline 50 MG TAB 100 MG PO (08:23)
[2019-04-24] MEDS: Loratidine 10 MG TAB PO (08:23)
--- NOTE | 2019-04-24 09:37 | PT.INTREAT ---
Date of service: 04/24/19 Time of Service: 09:37 PT Notes Visit Reasons: FAILURE TO THRIVE, FALLS Inpatient Physical Therapy Treatment Note [facility] Date: 04/24/2019 PRECAUTIONS: Fall, PWB R SUBJECTIVE: Lizbeth is agreeable to participating in PT. OBJECTIVE: PAIN: No c/o pain BED MOBILITY/TRANSFERS Sit-stand: I Stand-sit: I GAIT Assistive Device: FWW Weight bearing: PWB R Assist: I Distance: 10' x2 THEREX: Issued HEP for LE strengthening, will check in with patient tomorrow to determine progress. WHEELCHAIR MOBILITY: Patient performed self-propulsion, 100' x2 with c/o B UE fatigue. Patient required cueing for securing locks prior to transfers. Practiced wc mobility in/out of elevator, as well as performing 180 degree turns in elevator space. ASSESSMENT: Patient tolerated session with complaint of increased UE fatigue with wc mobility. She was able to tolerate an increase in wc mobility distance. She continues to require cueing for locking wc prior to transfers for safety. PLAN: Continue with PT's POC TREATMENT CODE/TIME: 25 minutes; [id number] x2
--- NOTE | 2019-04-24 10:13 | PDOC.HHF2F_ITS ---
Home Health Certification Home Health Certification: 1. Encounter Date and Reason I certify that SCOTTIE SPRINGER was seen by Sara Arias on 04/24/19 and that I had a [id number] encounter with this patient that meets the physician face to face encounter requirements. 2. Clinical Findings Supporting Skilled Need and Homebound Status I certify that home health services are medically necessary, include either intermittent correction and/or physical/speech therapy, and that this p atient is homebound in that absences from the home require considerable and taxing effort and are infrequent or of short duration, or are attributable to the need to receive medical care. [X] (a) Attached documentation from encounter provides clinical findings supporting skilled need and homebound status (including what assistance patient requires to leave the home). The encounter with the patient was in whole, or in part, for the following medical condition, which is the primary reason for home health care: FAILURE TO THRIVE, frequent recent FALLS, right ankle fracture Physical Therapy: routine evaluation and treatment. to restore the patient's ability to ambulate safely. to increase strength and work on fall reduction program. Home evaluation for safety, Occupational therapy: evaluate and treat for ADL and self care, BUSINESS TRANSFORMATION CONSULTANT: to assist with community resources and newscast director care planning Homebound: patient unable to leave home without assistance and ambulation is severely limited d/t decreased strength and partial weight bearing status. 3. Certification and Authentication I certify that I composed the above information based on my clinical judgement relating to this patient's medical condition and, if applicable, clinical findings communicated to me by the NPP or inpatient physician who performed the Home Health Referral. All further orders will be obtained through (Community Based Physician - PCP)
--- NOTE | 2019-04-24 10:22 | DSE_ITS ---
Date of service: 04/24/19 Time of Service: 10:22 DS: Diagnosis Discharge Diagnosis (1) Ankle fracture: Status: Acute Discharge Plan Disposition Patient Disposition: HOME W/HOME HEALTH SERVICE Condition: Good Discharge Details Chief Complaint: GenMedical Clinical Impression: Fall, Adult failure to thrive Reason For Visit: FAILURE TO THRIVE, FALLS Admit Date/Time: 04/18/19 20:17 Admit Provider: Enoch Bryant Attending Provider: Enoch Bryant Primary Care Provider: Nadya Bland ED Provider: Calvin Foreman Hospital Course Hospital Course: This is a 78 female who had mechanical fall sustaining a right ankle fracture. She was evaluated by Dr Braun in the ED who performed a closed reduction and splinted her ankle. She was to be partial weightbearing with crutches or walker and was discharged to home. She sustained multiple falls at home with no new injury and was not managing so returned to the ED for re-examination. She is was unable to safely re-ambulate, she was referred to [facility] status to work with PT/OT. Therapy has been following and she has now safely re-ambulated. Medically she has remained stable. she has had no fevers, is hemodynamically stable. she is eating and drinking and pain is controlled with OTC medication. her bowels and bladder are functioning well. she will be discharged to home with PT/OT and CYLINDER PRESS FEEDER. forms have been completed. Home Meds and New Rx's Prescriptions: New acetaminophen [Tylenol] 325 mg Tablet 650 mg PO Q4H PRN PRNQty: 0 RF: 0 aspirin 325 mg Tablet 325 mg PO DAILY Qty: 0 RF: 0 Continued alendronate [Fosamax] 70 mg tablet 70 mg PO QWEEK RF: 0 levetiracetam 750 mg tablet 750 mg PO BID Qty: 180 RF: 3 loratadine [Claritin] 10 MG tablet 10 mg PO DAILY RF: 0 sertraline 100 mg tablet 100 mg PO DAILY RF: 0 latanoprost 0.005 % Drops 1 drp ophthalmic (eye) HS RF: 0 Discontinued aspirin 81 mg tablet,chewable 81 mg PO DAILY RF: 0 Discharge Instructions Instructions: Ankle Fracture (DC) Additional Instructions: wear splint as directed. keep clean and dry. elevate leg during the day periodically to reduce swelling and assist with recovery. notify orthopedics for increased pain or swelling. Stand Alone Forms: Nursing Discharge Form Referrals: Cosme Braun MD [ [facility] STAFF PHYSICIAN] - 04/29/19 8:30 am Nadya Bland [Primary Care Provider] - 05/02/19 9:45 am Activity:: Activity as Tolerated Equipment/Supplies:: No Equipment Needed Diet:: As Tolerated Discharge Orders Discharge Orders: Discharge Order (Routine); Ordered 04/24/19 Ordered By: Sara Arias DS: Summary Status at Discharge Functional status at discharge: uses cane/walker Overall status at discharge: patient is progressing back to baseline Mental Status: mental status grossly normal Speech and Movement: speech and movement normal Mood: congruent mood Affect: normal affect Exam Const General: cooperative, healthy appearing, comfortable, no acute distress and well developed Nutritional Appearance: obese Orientation: alert, awake and oriented x3 HENMT Head: normal to inspection, normocephalic and atraumatic Mouth: oral mucosae normal and moist mucous membranes abnormal Resp Effort & Inspection: normal respiratory effort Auscultation: clear to auscultation bilaterally Cardio Rate: regular rate Rhythm: regular rhythm GI Inspection: normal to inspection Palpation: soft Auscultation: normal bowel sounds Skin Lesions: lesion noted (abrasions to bilateral knees, healing, no drainage, no sign of infection) Rashes: no rashes Neuro General: alert, awake and oriented x3 Cognition: normal cognition Speech: speech normal Gait: gait assisted Method: walker Extrem Right lower extremity: normal to inspection (toes with senstation intact, no edema noted. warm to touch) and normal capillary refill (cast intact to right lower extremity, toes are warm to touch, good cap refi) Psych Appearance: grossly normal and well kempt Mental Status: mental status grossly normal Speech and Movement: speech and movement normal Mood: congruent mood Affect: normal affect Attitude: cooperative Thought Process: normal Thought Content: normal Insight: insight good Judgment: judgment good DS: Data Vitals/I&O Vitals and I&O: Vital Signs Temperature 36.6 C 04/24/19 07:33 Temperature Source Tympanic 04/24/19 07:33 Pulse 63 04/24/19 07:33 Pulse Rhythm Regular 04/24/19 08:28 Respiratory Rate 18 04/24/19 07:33 Respiratory Effort Non-Labored 04/24/19 08:28 Respiratory Depth Normal 04/24/19 08:28 Respiratory Pattern Normal 04/24/19 08:28 Blood Pressure 137/62 04/24/19 07:33 Blood Pressure Position Supine 04/18/19 19:52 Pulse Oximetry 95 04/24/19 07:33 Oxygen Delivery Method Room Air 04/24/19 07:33 Oxygen Flow Rate 0 04/24/19 07:33 Pain Level 0 04/24/19 07:33 Intake & Output 04/23/19 04/23/19 04/24/19 11:59 23:59 11:59 Intake Total 480 / 1020 540 / 1020 360 / 360 Output Total 300 / 300 Balance 480 / 720 240 / 720 360 / 360 Intake: Oral 480 / 1020 540 / 1020 360 / 360 Output: Urine 300 / 300 Other: Urine Color Yellow Yellow Urine Appearance Clear Clear Urine Odor Normal Normal Comment Voiding in toilet, flushing. voiding in toielt w/o difficulty. Large void @ this time. Voiding Methods Toilet Toilet Toilet [facility] Medical History Depression with anxiety (Chronic) Epilepsy (Acute 06/09/15) Glaucoma (Chronic) History of pulmonary embolism (Chronic) s/p Eliquis [id number]. Mild cognitive impairment (Chronic) Osteoporosis (Chronic) Social History Smoking/Tobacco Use Status: Never Alcohol Intake: never Drug use: Never Substance use type: does not use Number of Children: 1 Do you feel safe at home: Yes Do you feel safe in your relationship?: Yes Additional Social history: She has one son. Niece Rupinder often helps/involved. No smoking, ETOH, or illicit drug use. Pt is living at [facility] and is feeling unsafe due to neighbors being loud and pounding on goodman and doors.
--- NOTE | 2019-04-24 11:09 | INDS_ITS ---
Date of service: 04/24/19 PT Notes Visit Reasons: FAILURE TO THRIVE, FALLS Inpatient Physical Therapy Discharge Summary Dates: 04/24/2019 Dates of Service: 04/19/2019 through 04/24/2019 Referring Doctor: Enoch Bryant MD PT Orders: PT CONSULT: Eval/treat. Precautions: Fall. Standard. Per Dr. Braun: Patient may use assist device as needed for ambulation. May rest RLE with splint on the ground as needed during stance or transfers. Recommend protected weight bearing (50%) otherwise as best possible. Continue elevation over next few days. Daily ROM to hip, knee, and toes. Patient Profile/Admitting Diagnosis: Patient is a 78-year-old female who presented to the ED on 04/16/2019 via EMS due to a mechanical fall while descending from a large pickup truck with a chief complaint of right ankle pain. Patient is diagnosed with a bimalleolar fracture of the right ankle and is status post close reduction with intra-articular block anesthesia followed by short leg splinting done by Dr. Braun on 04/16/2019. She was discharged home yesterday, but fell twice, and has been readmitted on swing bed status PMHX: Medical History Depression with anxiety (Chronic) Epilepsy (Acute 06/09/15) Glaucoma (Chronic) History of pulmonary embolism (Chronic) s/p Eliquis [id number]. Mild cognitive impairment (Chronic) Osteoporosis (Chronic) Surgical History History of carpal tunnel release (Acute) right History of repair of hiatal hernia (Acute) S/P cholecystectomy (Acute) Social History/Home Situation: Patient lives alone on the fifth floor of an apartment building in [facility]. She has a home health aide who comes in once a week to help with chores and laundry. Patient is independent with all all mobility ADL performance without the need for an assistive ambulatory device nor adaptive equipment prior to today's admission. Patient has a ramp to enter the apartment building. The length of the ramp is at least 50 feet and patient needs to push through heavy entrance doors manually in order to get in. She has about 10 to 15 feet from of the entrance door of her apartment to the elevator. Equipment Owned/DME: None Subjective: NT Objective: General Observation: NT Mental Status: NT Pain: NT ROM: Right Upper Extremity: Shoulder Flexion WFL. Shoulder abduction WFL. Elbow flexion WFL. Wrist flexion WFL. Opening and closing of hand WFL. Left Upper Extremity: Shoulder Flexion WFL. Shoulder abduction WFL. Elbow flexion WFL. Wrist flexion WFL. Opening and closing of hand WFL. Right Lower Extremity: Hip flexion WFL. Hip abduction WFL. Knee flexion allows up to 90 degrees limited by splint. Ankle dorsiflexion NT due to splint. Ankle plantarflexion NT due to splint. Left Lower Extremity: Hip flexion WFL. Hip abduction WFL. Knee flexion WFL. Ankl e dorsiflexion WFL. Ankle plantarflexion WFL. Strength: Right Upper Extremity: Shoulder flexors 4/5. Shoulder abductors 4/5. Elbow flexors 5/5. Elbow extensors 5/5. Mobile Sales Expert strong. Left Upper Extremity: Shoulder flexors 5/5. Shoulder abductors 5/5. Elbow flexors 5/5. Elbow extensors 5/5. Mobile Sales Expert strong. Right Lower Extremity: Hip flexors 4/5. Hip abductors 4/5. Knee flexors 3-/5. Knee extensors 5/5. Ankle dorsiflexors NT. Ankle plantarflexors NT. Left Lower Extremity:Hip flexors 5/5. Hip abductors 5/5. Knee flexors 5/5. Knee extensors 5/5. Ankle dorsiflexors 5/5. Ankle plantarflexors 5/5. Sensation: Intact as to pain and pressure on bilateral lower extremities. Bed Mobility/Transfers: Rolling independent independent Supine to sit independent Sit to supine independent Sit to stand independent Stand to sit independent Bed to chair independent Chair to bed independent Gait: PWB on R LE independent for 10 feet x 2 using FWW. Wheelchair mobility: independent with self propulsion for 100 feet x 2 on level surfaces and in and out of elevator Balance: Static Sitting: Normal Dynamic Sitting: Normal Static Standing: Fair Dynamic Standing: Fair Assessment: Patient is a 78-year-old female who presented to the ED on 04/16/2019 via EMS due to a mechanical fall while descending from a large pickup truck with a chief complaint of right ankle pain. Patient is diagnosed with a bimalleolar fracture of the right ankle and is status post close reduction with intra- articular block anesthesia followed by short leg splinting done by Dr. Braun on 04/16/2019. She returned home yesterday, but fell twice, has been readmitted on a swing bed status. Patient requires moderate to maximal cueing for correct weight bearing precaution, walker management, and directional changes. Patient will benefit from meals on wheels as she may not be able to safely work in the kitchen at all times due to weight-bearing precaution. She may need increased number of hours from home health aide for grocery shopping and laundry. She also will benefit from using a transport chair to negotiate the non-covered (no roof) ramp to the main entrance of the apartment building and will require assistance to push past the heavy entrance door of the building to get to the elevator, upon discharge later date. Patient presented with clinical signs and symptoms consistent with current/admitting diagnoses that have resulted to mobility limitations, gait instability, generalized weakness, and impairment of motor control as demonstrated by the following impairment level findings: 1. Decreased strength to R LE major muscle groups 2. Impaired standing balance 3. Impaired activity tolerance 4. Limitation of joint range of motion in R ankle due to splint 5. PWB on R LE Impairments continue to contribute to the following functional limitations: 1. Inability to safely ambulate without assistive device and physical assistance 2. Increase completion time for mobility ADL performance 3. Increased fall risk 4. Inability to negotiate steps alone safely Goals: Goals X1 week 1. Supine-Sit independent MET 2. Sit-Supine independent MET 3. Sit-Stand independent MET 4. Stand-Sit independent MET 5. Bed-Chair independent MET 6. Chair-Bed independent MET 7. Independent gait on level surface with use of least restrictive device for at least 100 feet without report of pain nor dyspnea NOT MET 8. Independent with home exercise program NOT MET 9. Good static and dynamic standing balance/tolerance NOT MET DISCHARGE RECOMMENDATIONS: Patient will benefit from meals on wheels as she may not be able to safely work in the kitchen at all times due to weight-bearing precaution. She may need increased number of hours from home health aide for assistance with civil cadd technician, grocery shopping, and laundry. She also will benefit from using a transport chair to negotiate the non-covered (no roof) ramp to the main entrance of the apartment building and will require assistance to push past the heavy entrance door of the building to get to the elevator. She will benefit from home health PT services in order to progress mobility level using least restrictive assistive ambulatory device, assess home safety, ident nixon additional equipment needs, and establish a functional maintenance program that will increase ability of patient to remain at home. TREATMENT CODE/TIME: NC. Thank you very much for this referral. Thank you very much for this referral. Qi Bhat PT, DPT, CLT [facility] Inpatient PT at [place], [place]
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
== END 2019-04-24 12:22 | disposition home health service (06) | DRG 561 ==
LOC: ER 20:49 → MS 21:11
PROVIDERS: Admitting Provider General Practice; Emergency Provider Student in an Organized Health Care Education/Training Program; PCP Internal Medicine; Visit Provider Internal Medicine
DX: S82.841D Displaced bimalleolar fracture of right lower leg, subsequent encounter for closed fracture with routine healing (principal); V48.4XXD Person boarding or alighting a car injured in noncollision transport accident, subsequent encounter; R62.7 Adult failure to thrive; R29.6 Repeated falls; G40.909 Epilepsy, unspecified, not intractable, without status epilepticus; H40.9 Unspecified glaucoma
CPT/HCPCS: 96374; 96375; 97110; 97162; 97530; 99221; 99283; 99285; 99304; 99316; 73610; 99284

== ENCOUNTER 2019-04-29 08:49 | Outpatient (CLI) | payer MEDICARE, OTHER, SELFPAY ==
--- NOTE | 2019-04-29 09:02 | DI.RAD_ITS ---
EXAM: XR ANKLE RT COMPLETE CLINICAL HISTORY: f/u TECHNIQUE: COMPARISON: XR ANKLE RT COMPLETE from 04/22/2019 FINDINGS: Three views were obtained and show previously described tibial fibular fracture with no gross interva l change in alignment of fracture fragments comparison with previous examination of April 22. Th e ankle is in a splint. IMPRESSION:
== END 2019-04-29 09:09 ==
PROVIDERS: PCP Internal Medicine; Referring Provider Internal Medicine; Visit Provider Student in an Organized Health Care Education/Training Program
DX: M25.571 Pain in right ankle and joints of right foot (principal); S82.841D Displaced bimalleolar fracture of right lower leg, subsequent encounter for closed fracture with routine healing; W00.0XXD Fall on same level due to ice and snow, subsequent encounter
CPT/HCPCS: 29405; 99214; 73610

== ENCOUNTER 2019-05-27 16:07 | Outpatient (CLI) | payer MEDICARE, OTHER, SELFPAY ==
--- NOTE | 2019-05-27 09:00 | DI.RAD_ITS ---
EXAM: XR ANKLE RT COMPLETE INDICATION: Follow up. COMPARISON: XR ANKLE RT COMPLETE from 04/22/2019 XR ANKLE RT COMPLETE from 04/29/2019 TECHNIQUE: 2D digital imaging was performed. FINDINGS: The cast has been removed. There has been no change in alignment of the distal right fibular fractur e. There has been increased distraction of the medial malleolar fracture compared to the prior exami nation. There is soft tissue swelling about the ankle.
== END 2019-05-27 16:27 ==
PROVIDERS: PCP Internal Medicine; Referring Provider Internal Medicine; Visit Provider Student in an Organized Health Care Education/Training Program
DX: M25.571 Pain in right ankle and joints of right foot (principal); S82.841D Displaced bimalleolar fracture of right lower leg, subsequent encounter for closed fracture with routine healing; M79.89 Other specified soft tissue disorders; W00.0XXD Fall on same level due to ice and snow, subsequent encounter
CPT/HCPCS: 99213; L4361; 73610

== ENCOUNTER 2019-07-14 08:02 | Outpatient (CLI) | payer MEDICARE, OTHER, SELFPAY ==
--- NOTE | 2019-07-14 08:00 | DI.RAD_ITS ---
EXAM: XR ANKLE RT COMPLETE CLINICAL HISTORY: F/U FRACTURE. TECHNIQUE: 2D digital imaging was performed. COMPARISON: XR ANKLE RT COMPLETE from 05/27/2019 FINDINGS: BONES: There has been no change in alignment of the distal right fibular fracture. The displaced med ial malleolar fracture appears stable. No new fracture or dislocation is present. There is a small plantar calcaneal spur. JOINTS: The ankle mortise is stable in alignment. SOFT TISSUE: There is persistent soft tissue swelling about the ankle. IMPRESSION: Stable right ankle fractures. DATA REPOSITORY: RADIATION DOSE DELIVERED:
== END 2019-07-14 08:22 ==
PROVIDERS: PCP Internal Medicine; Referring Provider Internal Medicine; Visit Provider Student in an Organized Health Care Education/Training Program
DX: M79.89 Other specified soft tissue disorders; S82.841G Displaced bimalleolar fracture of right lower leg, subsequent encounter for closed fracture with delayed healing; W00.0XXD Fall on same level due to ice and snow, subsequent encounter
CPT/HCPCS: 99214; 73610

== ENCOUNTER → 2019-08-25 07:52 | Outpatient (BNVA) | payer MEDICARE, OTHER, SELFPAY | PROVIDERS: PCP Internal Medicine; Referring Provider Internal Medicine; Visit Provider Psychiatry & Neurology Neurology | DX: G40.909 Epilepsy, unspecified, not intractable, without status epilepticus (principal); G31.84 Mild cognitive impairment of uncertain or unknown etiology | CPT/HCPCS: 99213; 99441 ==

== ENCOUNTER 2019-10-28 10:04 | Outpatient (CLI) | payer MEDICARE, OTHER, SELFPAY ==
--- NOTE | 2019-10-28 08:45 | DI.RAD_ITS ---
EXAM: XR ANKLE RT COMPLETE CLINICAL HISTORY: f/u fracture. TECHNIQUE: 2D digital imaging was performed. COMPARISON: CR XR ANKLE RT COMPLETE from 07/14/2019 FINDINGS: BONES: There has been no change in alignment of the distal right tibial and fibular fractures. No ne w fracture or dislocation is seen. A small plantar calcaneal spur is present. JOINTS: Alignment of the ankle mortise is stable. Degenerative changes are seen about the ankle. SOFT TISSUE: There has been a decrease in the soft tissue swelling about the ankle. IMPRESSION: Stable alignment of the distal right tibial and fibular fractures. The fracture lines are still visu alized. DATA REPOSITORY: RADIATION DOSE DELIVERED:
== END 2019-10-28 10:24 ==
PROVIDERS: PCP Internal Medicine; Referring Provider Internal Medicine; Visit Provider Student in an Organized Health Care Education/Training Program
DX: S82.841D Displaced bimalleolar fracture of right lower leg, subsequent encounter for closed fracture with routine healing; X58.XXXD Exposure to other specified factors, subsequent encounter
CPT/HCPCS: 99213; 73610

== ENCOUNTER 2020-02-01 17:20 | Emergency (ER) | payer MEDICARE, OTHER, SELFPAY ==
[2020-02-01 17:28] VITALS: BP 138/72; PULSE 66; RESP 16; TEMP 36.6; O2SAT 95
--- NOTE | 2020-02-01 17:30 | DI.CT_ITS ---
EXAM: CT ABDOMEN PELVIS W INDICATION: left lower abdominal pain. COMPARISON: CT CHEST FOR PULMONARY EMBOLUS from 04/28/2016 TECHNIQUE: FINDINGS: CT examination of the abdomen and pelvis was performed with a bolus infusion of 100 cc of Omnipaque 3 50. Images obtained through the lung bases are unremarkable. The liver is unremarkable in appearance. Gallbladder and bile ducts are CT normal. Pancreas appears normal. Spleen is unremarkable in appearance. Adrenals appear normal. The kidneys are unremarkable with no evidence of hydronephrosis, nephrolithiasis, or renal mass.. Ur inary bladder unremarkable. Abdominal aorta is of normal diameter and no major vascular abnormality is seen. No abdominal wall hernia. No abdominal or pelvic adenopathy. SPECIMEN PREPARATION ASSISTANT structures appear intact. The appendix is not specifically visualized but there is no evidence of appendicitis. Note is made o f an area of wall thickening of the sigmoid colon proximally with associated pericolonic fat edema. Findings are suggestive of acute uncomplicated diverticulitis. No other focal bowel pathology identi fied.. IMPRESSION: Findings consistent with acute sigmoid diverticulitis. No evidence of abscess or perforation. RADIATION DOSE DELIVERED: 1,257.97mGy.cm Total DLP 1,257.97mGy.cm Total DLP
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
[2020-02-01] MEDS: Omnipaque 350 MG/ML 100 ML BTL IJ (17:58)
[2020-02-01] MEDS: Normal Saline - Diluent 50 ML VIAL IV (17:59)
[2020-02-01 18:00] LABS: Abs Immature Grans 0.02 10^3/uL (0.0-0.06); Absolute Basophil Count 0.03 10^3/uL (0.0-0.2); Absolute Eosinophil Count 0.22 10^3/uL (0.0-0.7); Absolute Lymphocyte Count 1.94 10^3/uL (1.2-3.4); Absolute Monocyte Count 1.01 10^3/uL (0.1-0.8); Absolute Neutrophil Count 6.16 10^3/uL (1.2-6.7); Basophils % 0.3; Eosinophils % 2.3; HGB 13.3 g/dL (11.2-15.7); Immature Grans % 0.2; Lymphocytes % 20.7; MCHC 31.7 % (32.0-36.0); MCV 91.7 fL (80-95); MPV 11.6 fL (8.0-11.0); Monocytes % 10.8; Neutrophils % 65.7; Nucleated RBC 0 %; Platelet Count 174 10^3/uL (130-400); RBC 4.58 10^6/uL (3.93-5.22); RDW 13.2 % (11.7-14.6); RDW-SD 44.8 fL; WBC 9.38 10^3/uL (4.4-10.8)
[2020-02-01] MEDS: Normal Saline Flush 10 ML SYR IVP (18:00)
[2020-02-01 18:07] LABS: PTT Activated 22.4 sec (21.0-31.4); Prothrombin Time 9.9 sec (9.3-11.0)
[2020-02-01 18:09] LABS: ALT 26 U/L (14-59); AST 22 U/L (15-37); Albumin 3.6 g/dL (3.4-5.0); Alkaline Phosphatase 59 U/L (46-116); Anion Gap 4.3 mmol/L (3-11); BUN 16 mg/dL (7-18); Bilirubin, Direct 0.06 mg/dL (0.00-0.20); Bilirubin, Total 0.3 mg/dL (0.2-1.0); CO2 29.7 mmol/L (21.0-32.0); CREATININE 0.86 mg/dL (0.55-1.02); Chloride 103 mmol/L (98-107); Glucose 102 mg/dL (74-106); Lipase 129 U/L (73-393); Magnesium 2.1 mg/dL (1.8-2.4); Potassium 4.2 mmol/L (3.5-5.1); Sodium 137 mmol/L (136-145); Total Protein 7.4 g/dL (6.4-8.2)
[2020-02-01 18:34] LABS: Bilirubin Negative (Negative); Blood Trace-intact (Negative); Clarity Clear (Clear); Glucose Negative (Negative); Ketones Negative (Negative); Leukocyte Esterase Negative (Negative); Nitrite Negative (Negative); Specific Gravity 1.015 (1.005-1.025); Urobilinogen 0.2 EU/dL (Up TO 0.2)
--- NOTE | 2020-02-01 18:38 | DI.VRAD_ITS ---
PROCEDURE INFORMATION: Exam: CT Abdomen And Pelvis With Contrast Exam date and time: 02/01/2020 5:40 PM Age: 79 years old Clinical indication: Localized; Left lower quadrant (llq); Prior surgery; Surgery date: 6+ months; Surgery type: Cholecystectomy; Patient HX: Left lower abdominal pain TECHNIQUE: Imaging protocol: Computed tomography of the abdomen and pelvis with intravenous contrast. Radiation optimization: All CT scans at this facility use at least one of these dose optimization techniques: automated exposure control; mA and/or kV adjustment per patient size (includes targeted exams where dose is matched to clinical indication); or iterative reconstruction. Contrast material: OMNIPAQUE 350; Contrast volume: 100 ml; Contrast route: INTRAVENOUS (IV); COMPARISON: No relevant prior studies available. FINDINGS: Pleural space: No layering pleural effusions are identified. Heart: Heart size is mildly enlarged. There is no pericardial effusion. Liver: Normal. No mass. Gallbladder and bile ducts: Patient is status post cholecystectomy. No fluid collection within the operative bed is identified. There is no biliary ductal dilatation. Pancreas: There is moderate fatty atrophy of the pancreas, without inflammatory change. Spleen: Normal. No splenomegaly. Adrenals: There is mild adrenal thickening suggesting hyperplasia. Kidneys and ureters: There is a 1 cm simple right renal cyst on image 23, series 4. No urinary tract stones are identified. There is no hydronephrosis or hydroureter. Stomach and bowel: There is sigmoid diverticulosis. On axial image 63, series 4 and coronal image 58, series 6, there is a thickened sigmoid diverticulum with hyperenhancing wall and with surrounding inflammatory fat stranding, consistent with acute diverticulitis. There is no extraluminal air to suggest perforation. No focal fluid collections are identified. There are postoperative changes of the stomach suggesting prior Thea fundoplication. Appendix: No evidence of appendicitis. Intraperitoneal space: See Stomach and bowel finding. Vasculature: There is moderate atherosclerotic calcification of the infrarenal abdominal aorta and common iliac arteries without aneurysm formation. Lymph nodes: Unremarkable. No enlarged lymph nodes. Urinary bladder: Unremarkable as visualized. Reproductive: Unremarkable as visualized. Bones/joints: There is multilevel moderate spondylosis of the lower thoracic and lumbar spine as well as hypertrophic facet arthrosis of the lower lumbar spine. There are multiple mild grade 1 lumbar subluxations which are likely chronic and degenerative. Soft tissues: Unremarkable. IMPRESSION: Acute uncomplicated diverticulitis of the sigmoid colon. Findings were discussed with Ander Reyna at 02/01/2020 6:35 PM EDT. Dictated and Authenticated by: Tobias Ramos MD. Ordering:ZUNILDA Worthington MD
[2020-02-01] MEDS: Ciprofloxacin 500 MG TAB PO (18:45)
[2020-02-01] MEDS: metroNIDAZOLE 500 MG TAB PO (18:46)
[2020-02-01 18:47] LABS: Bacteria Negative HPF (Negative); C & S Indicated? No; Casts Negative LPF (Negative); Crystals Negative HPF (Negative); Epithelial Cells Negative HPF (Negative); Mucus Negative (Negative); Other Cells Negative (Negative); RBC 0-2 HPF (0-2); WBC Negative HPF (0-5)
== END 2020-02-01 18:55 | disposition home or self-care (01) ==
PROVIDERS: Emergency Provider Emergency Medicine; PCP Internal Medicine
DX: K57.32 Diverticulitis of large intestine without perforation or abscess without bleeding (principal)
CPT/HCPCS: 80053; 83690; 99285; 74177; 81003; 81015; 82248; 83735; 85025; 85610; 85730; 99284; J3490

== ENCOUNTER → 2020-02-23 10:11 | Outpatient (BNVA) | payer MEDICARE, OTHER, SELFPAY | PROVIDERS: PCP Internal Medicine; Referring Provider Internal Medicine; Visit Provider Psychiatry & Neurology Neurology | DX: G40.909 Epilepsy, unspecified, not intractable, without status epilepticus (principal); G31.84 Mild cognitive impairment of uncertain or unknown etiology; F41.8 Other specified anxiety disorders | CPT/HCPCS: 99213; 99441 ==

== ENCOUNTER → 2020-03-29 12:49 | Outpatient (BNVA) | payer MEDICARE, OTHER, SELFPAY | PROVIDERS: PCP Internal Medicine; Referring Provider Internal Medicine; Visit Provider Psychiatry & Neurology Neurology | DX: G40.909 Epilepsy, unspecified, not intractable, without status epilepticus (principal); F41.8 Other specified anxiety disorders; G31.84 Mild cognitive impairment of uncertain or unknown etiology | CPT/HCPCS: 99213 ==

== ENCOUNTER 2020-09-11 16:20 | Emergency (ER) | payer MEDICARE, OTHER, SELFPAY ==
[2020-09-11 16:11] VITALS: BP 166/60; PULSE 55; RESP 22; TEMP 36.4; O2SAT 94
--- NOTE | 2020-09-11 16:15 | RT.EKG_ITS ---
APPROVED REPORT Exam: Resting ECG Reason for Exam: seizure Patient Location: E HR:57 bpm ECG Measurements Heart Rate 57 AXIS VA 199 P 42 QRSd 87 QRS -16 QT 423 T 21 QTc 413 Conclusion Sinus bradycardia...rate< 60 Left ventricular hypertrophy...multiple voltage criteria I have reviewed and interpreted ECG and agree with software generated interpretation.
--- NOTE | 2020-09-11 16:15 | DI.RAD_ITS ---
Exam(s) XR CHEST 2V PA LATERAL EXAM: XR CHEST 2V PA LATERAL CLINICAL HISTORY: weakness TECHNIQUE: COMPARISON: CR XR CHEST 2V PA LATERAL from 12/08/2018 FINDINGS: Heart is at the upper limits of normal in size. Lungs are grossly clear and well expanded. No pleur al effusion seen. No change in appearance comparison with prior examination of December 2018. IMPRESSION: No evidence of acute process. RADIATION DOSE DELIVERED: Total DLP
--- NOTE | 2020-09-11 16:29 | W.ED.GENAD ---
Discharge Plan Disposition Patient Disposition: HOME Condition: Good Discharge Details Clinical Impression: Malaise Primary Care Provider: Nadya Bland ED Provider: Jessica David Home Meds and New Rx's Prescriptions: No Action alendronate [Fosamax] 70 mg tablet 70 mg PO QWEEK RF: 0 levetiracetam 750 mg tablet 750 mg PO BID Qty: 180 RF: 3 aspirin 81 mg tablet,delayed release (DR/EC) 81 mg PO DAILY RF: 0 loratadine [Claritin] 10 MG tablet 10 mg PO DAILY RF: 0 sertraline 100 mg tablet 100 mg PO DAILY RF: 0 acetaminophen [Tylenol] 325 mg Tablet 650 mg PO Q4H PRN PRNQty: 0 RF: 0 Discharge Instructions Additional Instructions: Please follow-up with your primary care physician on Sunday for reevaluation return earlier should you have new or worsening complaints including chest pain, weakness, fever, chills seizure-like activity Take Your seizure meds as prescribed Discharge Data Discharge Date/Time-TO BE ENTERED AT DEPARTURE: 09/11/20 19:55 Medical Decision Making Please follow-up with your primary care physician, your tests are reassuring A low suspicion that you have a seizure, I recommend continue on your prescribed medication Please return earlier should you have fever, chills, recurrent episodes, any difficulty getting around at home, or with any new or worsening complaints I recommend see your doctor on Sunday Troponin negative with greater than 3 hours of symptoms at time of evaluation, no evidence of acidosis, likely consistent with seizure No tongue injury or incontinence consistent with seizure EKG without acute abnormality Electrolytes within normal limits Request discharge home, comfortable discharge home, ambulatory with steady gait, urinalysis with 3-5 white-red blood cells, and to follow-up with Regarding this, states is chronic for patient Differential Diagnosis Differential Diagnosis: Seizure, angina, urinary tract infection, electrolyte abnormality Medical Records Medical records reviewed: Yes I reviewed the patient's medical records. Lab Data Lab results reviewed: Yes I reviewed the patient's lab results. HPI General Mode of arrival: ambulatory. Date/Time Provider Initiated Documentation: 09/11/20 16:24. Limitations to Documentation: no limitations. Information obtained by: patient. HPI Narrative: This 80-year-old female comes in feeling lightheaded, nauseous, and tired when she wakes from an approximately 11:00. She denies any chest pain or shortness of breath. She denies seizure-like activity. She states that she was concerned that she potentially had a seizure in her sleep as she sometimes feels similar to this when she has her seizures. She lives independently with her with no events was witnessed. She denies any tongue injury or incontinence. 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 She is unsure if her last seizure episode as she is been very well controlled per patient. She is feeling improved now. She has not reportedly postictal per EMS and her blood sugar was 102. She denies any urinary complaints, chest pain, cough, dizziness, weakness. She states she felt quite well until the event occurred. She denies any speech, strength, sensation change, or vision change. Denies any new medications. Does not drink alcohol reportedly. Denies illicit drug use. Related Data Home Medications Medication Instructions Recorded Confirmed loratadine [Claritin] 10 mg PO DAILY tab-cap 09/13/17 09/11/20 alendronate 70 mg tablet 70 mg PO QWEEK 12/25/17 09/11/20 sertraline 100 mg tablet 100 mg PO DAILY tab 12/25/17 09/11/20 acetaminophen [Tylenol] 650 mg PO Q4H PRN PRN #0 tab 04/24/19 09/11/20 levetiracetam 750 mg tablet 750 mg PO BID #180 tab 08/25/19 09/11/20 aspirin 81 mg tablet,delayed 81 mg PO DAILY 10/28/19 09/11/20 release Previous Rx's Medication Instructions Recorded acetaminophen [Tylenol] 650 mg PO Q4H PRN PRN #0 tab 04/24/19 levetiracetam 750 mg tablet 750 mg PO BID #180 tab 08/25/19 Allergies Allergy/AdvReac Type Severity Reaction Status Date / Time chlorpromazine HCl Allergy Verified 09/11/20 16:17 [From Thorazine] penicillin Allergy Verified 09/11/20 16:17 tree and shrub pollen Allergy Runny, Verified 09/11/20 16:17 itchy eyes, sneezing. General Stated Complaint: Seizure ANITHA: 3 Review of Systems Narrative: Review of systems obtained by 7 aside from where indicated in HPI PFSH Medical History (Updated 09/11/20 @ 19:08 by YADIEL Lazo) Depression with anxiety Epilepsy (06/09/15) Glaucoma History of pulmonary embolism s/p Eliquis [id number]. Mild cognitive impairment Osteoporosis Surgical History History of carpal tunnel release right History of repair of hiatal hernia S/P cholecystectomy Family History Father Heart disease Mother Breast cancer Social History Smoking/Tobacco Use Status: Never Smoking risk assessment performed?: Yes Alcohol Intake: never Drug use: Never Substance use type: does not use Number of Children: 1 Do you feel safe at home: Yes Do you feel safe in your relationship?: Yes Additional Social history: She has one son. Niece Rupinder often helps/involved. No smoking, ETOH, or illicit drug use. Pt is living at [facility] and is feeling unsafe due to neighbors being loud and pounding on goodman and doors. Exam Const General: cooperative, comfortable and no acute distress HENMT Head: normal to inspection Other: Uvula midline, no visible evidence of trauma to tongue or intraoral pathology Eyes Pupils: PERRL EOM: EOM intact bilaterally Neck Other: No midline tenderness, no carotid bruit, no visible sign of trauma Chest Chest: normal inspection of the chest Resp Effort & Inspection: normal respiratory effort Auscultation: clear to auscultation bilaterally Cardio Rate: regular rate Rhythm: regular rhythm GI Inspection: normal to inspection Auscultation: normal bowel sounds Skin General skin exam: no rashes or lesions noted Neuro General: patient alert and patient oriented x3 Cognition: normal cognition Course Vital Signs Vital signs: Vital Signs Temperature 36.4 C L 09/11/20 16:11 Pulse 55 L 09/11/20 16:11 Respiratory Rate 22 09/11/20 16:11 Blood Pressure 166/60 H 09/11/20 16:11 Pulse Oximetry 94 09/11/20 16:11 Temperature 36.4 C L 09/11/20 16:11 Temperature Source Skin 09/11/20 16:11 Pulse 55 L 09/11/20 16:11 Respiratory Rate 22 09/11/20 16:11 Respiratory Effort Non-Labored 09/11/20 16:28 Blood Pressure 166/60 H 09/11/20 16:11 Blood Pressure Position Sitting 09/11/20 16:11 Pulse Oximetry 94 09/11/20 16:11 Oxygen Delivery Method Room Air 09/11/20 16:11 Oxygen Flow Rate 0 09/11/20 16:11 Pain Level 0 09/11/20 16:11
[2020-09-11 16:42] LABS: Abs Immature Grans 0.01 10^3/uL (0.0-0.06); Absolute Basophil Count 0.03 10^3/uL (0.0-0.2); Absolute Eosinophil Count 0.23 10^3/uL (0.0-0.7); Absolute Lymphocyte Count 2.15 10^3/uL (1.2-3.4); Absolute Neutrophil Count 2.77 10^3/uL (1.2-6.7); Basophils % 0.5; HCT 38.9 % (36.0-46.0); HGB 12.7 g/dL (11.2-15.7); Immature Grans % 0.2; Lymphocytes % 37.1; MCH 29.4 pg (27.0-33.0); MCHC 32.6 % (32.0-36.0); MPV 11.5 fL (8.0-11.0); Monocytes % 10.4; Neutrophils % 47.8; Nucleated RBC 0 %; Platelet Count 166 10^3/uL (130-400); RBC 4.32 10^6/uL (3.93-5.22); RDW 12.9 % (11.7-14.6); RDW-SD 42.7 fL; WBC 5.79 10^3/uL (4.4-10.8)
[2020-09-11 17:40] LABS: ALT 25 U/L (14-59); AST 17 U/L (15-37); Albumin 3.2 g/dL (3.4-5.0); Alkaline Phosphatase 56 U/L (46-116); Anion Gap 4.9 mmol/L (3-11); BUN 15 mg/dL (7-18); Bilirubin, Total 0.2 mg/dL (0.2-1.0); CO2 27.1 mmol/L (21.0-32.0); CREATININE 0.8 mg/dL (0.55-1.02); Calcium 9.5 mg/dL (8.5-10.1); Chloride 108 mmol/L (98-107); Glucose 102 mg/dL (74-106); Sodium 140 mmol/L (136-145); TSH (W/Ref FT4) 1.71 uIU/mL (0.36-3.74); Total Protein 6.7 g/dL (6.4-8.2)
[2020-09-11 18:26] VITALS: BP 156/84; PULSE 16; RESP 16; TEMP 36.6; O2SAT 95
--- NOTE | 2020-09-11 18:26 | NUR.NOTE ---
pt easily ambulated in rm 6 Nursing Note:
[2020-09-11 18:53] LABS: Troponin I < 0.05 ng/mL (<0.06)
--- NOTE | 2020-09-11 19:12 | DI.VRAD_ITS ---
PROCEDURE INFORMATION: Exam: XR Chest Exam date and time: 09/11/2020 4:29 PM Age: 80 years old Clinical indication: Other: Weakness TECHNIQUE: Imaging protocol: XR of the chest. Views: 2 views. Total images: 2 COMPARISON: CR XR CHEST 2V PA LATERAL 12/08/2018 1:52 PM FINDINGS: Lungs: There is no consolidation. Common bile duct is mildly dilated and measures up to 1 cm. Pulmonary kassy: Unremarkable contours. Pleural spaces: No pleural effusion. No pneumothorax. Heart/Mediastinum: Unremarkable contours. No cardiomegaly. Vasculature: Aorta tortuous. Bones/joints: Thoracic spondylosis. There is a faint density in the right mid level unchanged from the prior study which may be related to in costal chondral calcification. Intraperitoneal space: Visualized upper abdomen is unremarkable. IMPRESSION: Stable chest. No acute findings. Dictated and Authenticated by: Stu Núñez MD. Ordering:FRANCIS Lopez MD
[2020-09-11 19:13] LABS: Bilirubin Negative (Negative); Blood Small (Negative); Clarity Clear (Clear); Glucose Negative (Negative); Ketones Negative (Negative); Leukocyte Esterase Negative (Negative); Nitrite Negative (Negative); Specific Gravity 1.025 (1.005-1.025); Urobilinogen 0.2 EU/dL (Up TO 0.2); pH 5.5 (5-8)
[2020-09-11 19:19] VITALS: BP 138/60; PULSE 55; RESP 18; TEMP 36.6; O2SAT 94
[2020-09-11 19:27] LABS: Bacteria Negative HPF (Negative); C & S Indicated? No; Casts Negative LPF (Negative); Crystals Negative HPF (Negative); Epithelial Cells Rare HPF (Negative); Mucus Negative (Negative); Other Cells Negative (Negative)
== END 2020-09-11 19:55 | disposition home or self-care (01) ==
LOC: ER 19:20
PROVIDERS: Emergency Provider Physician Assistant; PCP Internal Medicine
DX: R53.81 Other malaise (principal); G40.909 Epilepsy, unspecified, not intractable, without status epilepticus; Z60.2 Problems related to living alone
CPT/HCPCS: 36415; 80053; 93005; 99285; 71046; 81003; 81015; 83735; 84443; 84484; 85025; 93010; 99284

== ENCOUNTER → 2020-09-27 10:37 | Outpatient (BNVA) | payer MEDICARE, OTHER, SELFPAY | PROVIDERS: PCP Internal Medicine; Visit Provider Psychiatry & Neurology Neurology | DX: G40.909 Epilepsy, unspecified, not intractable, without status epilepticus (principal); M81.0 Age-related osteoporosis without current pathological fracture; F41.8 Other specified anxiety disorders; G31.84 Mild cognitive impairment of uncertain or unknown etiology | CPT/HCPCS: 99213 ==

== ENCOUNTER 2020-10-20 09:10 | Emergency (ER) | payer MEDICARE, OTHER, SELFPAY ==
--- NOTE | 2020-10-20 09:13 | W.ED.GENAD ---
Discharge Plan Disposition Patient Disposition: HOME Condition: Stable Discharge Details Clinical Impression: Rash Primary Care Provider: Nadya Bland ED Provider: Yoselyn De Los Santos Home Meds and New Rx's Prescriptions: New hydrocortisone 1 % cream 1 applic topical BID Qty: 28.4 RF: 0 Continued alendronate [Fosamax] 70 mg tablet 70 mg PO QWEEK RF: 0 aspirin 81 mg tablet,delayed release (DR/EC) 81 mg PO DAILY RF: 0 levetiracetam 750 mg tablet 750 mg PO BID Qty: 180 RF: 3 loratadine [Claritin] 10 MG tablet 10 mg PO DAILY RF: 0 sertraline 100 mg tablet 100 mg PO DAILY RF: 0 acetaminophen [Tylenol] 325 mg Tablet 650 mg PO Q4H PRN PRNQty: 0 RF: 0 Discharge Instructions Instructions: Acute Rash (ED) Additional Instructions: Your rash may be a local reaction to something in your environment which may be an allergy or inflammation. Apply the topical steroid twice daily to the affected areas. Your prescription has been sent electronically to your pharmacy. Call the pharmacy to make sure your prescription is ready before pickup. You can take over the counter Benadryl as needed and directed for itching. Avoid scratching the areas as they may become secondarily infected. If you notice any worsening redness or pain, you can apply a topical antibiotic ointment. Follow-up with your primary care doctor in 1 week. Return to the emergency department with any worsening or new concerning symptoms such as fever, pain, swelling or any other concerns. Discharge Data Discharge Physician: Yoselyn De Los Santos Medical Decision Making 80-year-old female presents with pruritic rash to bilateral arms, right worse than left for the past week. Denies fever. Denies pain with rash. Denies any new medications. There appeared to be erythematous papules, potentially consistent with urticaria to the right arm. No significant rash noted to the left arm or legs. She appears comfortable and nontoxic. History and presentation does not appear consistent with shingles, scabies, polymorphic light eruption or photosensitivity or cellulitis. Suspect most likely a contact dermatitis or allergic reaction. Do not see indication for oral steroids or antibiotics at this time. Will treat with topical steroids at this time. Discussed with patient that she is advised to follow-up with her primary care doctor for reevaluation and that if symptoms do not improve or worsen, may need oral steroids or potentially antibiotics if she develops pain. Usual and customary return precautions given prior to discharge. Medical Records Medical records reviewed: Yes I reviewed the patient's medical records. HPI General Mode of arrival: ambulatory. Date/Time Provider Initiated Documentation: 10/20/20 09:13. Limitations to Documentation: no limitations. Information obtained by: patient. HPI Narrative: Patient is a 80-year-old female who presents with rash to both of her arms for the past week. She states she noticed it mainly when she goes out in the sun and thinks it is related to the heat. She states the rash feels itchy and is mainly in her right arm but also noted some spots on her left arm and right leg. She denies any new medications, new exposures such as new lotions, soaps, detergents, foods or travel. She denies any fever or other recent illness. She states she put Neosporin on the rash on her right arm without relief Related Data Home Medications Medication Instructions Recorded Confirmed loratadine [Claritin] 10 mg PO DAILY tab-cap 09/13/17 10/20/20 alendronate 70 mg tablet 70 mg PO QWEEK 12/25/17 10/20/20 sertraline 100 mg tablet 100 mg PO DAILY tab 12/25/17 10/20/20 acetaminophen [Tylenol] 650 mg PO Q4H PRN PRN #0 tab 04/24/19 10/20/20 aspirin 81 mg tablet,delayed 81 mg PO DAILY 10/28/19 10/20/20 release levetiracetam 750 mg tablet 750 mg PO BID #180 tab 09/27/20 10/20/20 hydrocortisone 1 applic TOPICAL BID #28.4 g 10/20/20 Previous Rx's Medication Instructions Recorded acetaminophen [Tylenol] 650 mg PO Q4H PRN PRN #0 tab 04/24/19 levetiracetam 750 mg tablet 750 mg PO BID #180 tab 09/27/20 hydrocortisone 1 applic TOPICAL BID #28.4 g 10/20/20 Allergies Allergy/AdvReac Type Severity Reaction Status Date / Time chlorpromazine HCl Allergy Verified 10/20/20 09:18 [From Thorazine] penicillin Allergy Verified 10/20/20 09:18 tree and shrub pollen Allergy Runny, Verified 10/20/20 09:18 itchy eyes, sneezing. General ANITHA: 3 Review of Systems All systems reviewed & are unremarkable except as noted in HPI and below Constitutional Constitutional: Reports as per HPI, Denies chills and Denies fever(s) Eyes Eyes: Denies blurry vision ENT Ears, Nose, Mouth, and Throat: Denies dizziness, Denies sore throat and Denies throat swelling Cardiovascular Cardiovascular: Denies chest pain and Denies dyspnea Respiratory Respiratory: Denies cough and Denies dyspnea Gastrointestinal Gastrointestinal: Denies abdominal pain, Denies diarrhea and Denies vomiting Genitourinary Genitourinary: Denies hematuria and Denies dysuria Musculoskeletal Musculoskeletal: Denies back pain and Denies numbness Integumentary/Breasts Skin/Breast: Denies lesions and Reports rash Neurologic Neurologic: Denies dizziness, Denies localized weakness and Denies numbness Allergic/Immunologic Allergic/Immunologic: Denies throat swelling [facility] Medical History (Updated 10/20/20 @ 09:48 by Yoselyn De Los Santos DO) Depression with anxiety Epilepsy (06/09/15) Glaucoma History of pulmonary embolism s/p Eliquis [id number]. Mild cognitive impairment Osteoporosis Surgical History History of carpal tunnel release right History of repair of hiatal hernia S/P cholecystectomy Family History Father Heart disease Mother Breast cancer Social History Smoking/Tobacco Use Status: Never Smoking risk assessment performed?: Yes Alcohol Intake: never Drug use: Never Substance use type: does not use Household members: none Housing: apartment Number of Children: 1 What type of physical activity do you participate in: none Seatbelt use: always Do you feel safe at home: Yes Do you feel safe in your relationship?: Yes Additional Social history: She has one son. Niece Rupinder often helps/involved. No smoking, ETOH, or illicit drug use. Pt is living at [facility] and is feeling unsafe due to neighbors being loud and pounding on goodman and doors. Exam Const General: cooperative, healthy appearing and no acute distress HENMT Head: normal to inspection Mouth: oral mucosae normal Eyes General: appearance normal, both eyes and all related structures Neck Neck: normal visual inspection Resp Effort & Inspection: normal respiratory effort and able to speak in complete sentences Cardio Rate: regular rate Skin Other: Multiple scattered approximately 1 x 1 cm faintly erythematous papules noted to right upper extremity extending from shoulder to wrist. There are no vesicles, scaling, bleeding, discharge or red streaking. No fluctuance or induration. There is no ecchymosis. No rash noted to the left arm or right leg. Neuro General: patient alert, patient awake and patient oriented x3 Motor: muscle tone normal throughout Extrem General: normal to inspection and full ROM Psych Appearance: grossly normal Affect: normal affect
[2020-10-20 09:15] VITALS: BP 134/64; PULSE 71; RESP 16; TEMP 36.5; O2SAT 95
== END 2020-10-20 10:00 | disposition home or self-care (01) ==
PROVIDERS: Emergency Provider Physician Assistant; PCP Internal Medicine
DX: R21 Rash and other nonspecific skin eruption (principal)
CPT/HCPCS: 99283

== ENCOUNTER 2020-11-02 17:33 | Emergency (ER) | payer MEDICARE, OTHER, SELFPAY ==
[2020-11-02 17:27] VITALS: BP 156/50; PULSE 65; RESP 20; TEMP 36.2; O2SAT 95
--- NOTE | 2020-11-02 17:30 | RT.EKG_ITS ---
APPROVED REPORT Exam: Resting ECG Reason for Exam: arm shaking Patient Location: E HR:63 bpm ECG Measurements Heart Rate 63 AXIS NV 195 P 54 QRSd 87 QRS -10 QT 416 T 37 QTc 426 Conclusion Sinus rhythm...normal P axis, V-rate 60- 99. No STEMI. I have reviewed and interpreted ECG and agree with software generated interpretation.
[2020-11-02 17:35] VITALS: RESP 22
--- NOTE | 2020-11-02 17:38 | W.ED.GENAD ---
Discharge Plan Disposition Patient Disposition: HOME Condition: Improving Discharge Details Clinical Impression: Episode of shaking Primary Care Provider: Nadya Bland ED Provider: Yoselyn De Los Santos Home Meds and New Rx's Prescriptions: Continued alendronate [Fosamax] 70 mg tablet 70 mg PO QWEEK RF: 0 aspirin 81 mg tablet,delayed release (DR/EC) 81 mg PO DAILY RF: 0 levetiracetam 750 mg tablet 750 mg PO BID Qty: 180 RF: 3 loratadine [Claritin] 10 MG tablet 10 mg PO DAILY RF: 0 sertraline 100 mg tablet 100 mg PO DAILY RF: 0 acetaminophen [Tylenol] 325 mg Tablet 650 mg PO Q4H PRN PRNQty: 0 RF: 0 hydrocortisone 1 % cream 1 applic topical BID Qty: 28.4 RF: 0 Discharge Instructions Instructions: Stress (ED), Anxiety (ED) Additional Instructions: It is unclear what your episode of shaking was due to today. Sometimes these episodes can be related to feelings of stress or anxiety. Your blood work and EKG today was reassuring. Take the ativan as needed for feelings of stress or anxiety. Call your primary care doctor tomorrow to schedule a follow-up appointment for reevaluation. Return immediately to the emergency department if you develop any worsening or new concerning symptoms. Discharge Data Discharge Date/Time-TO BE ENTERED AT DEPARTURE: 11/02/20 19:33 Discharge Physician: Yoselyn De Los Santos Medical Decision Making 80-year-old female with a history of anxiety and depression presents with an episode of bilateral arm shaking that occurred while laying in bed and lasted 10 minutes and resolved prior to arrival. Vitals within normal limits. EKG notes a rate of 63 and sinus with no STEMI. She is asymptomatic. Based on patient's age and symptoms, screening labs obtained and within normal limits. Discussed with patient that her symptoms do not appear consistent with ACS, CVA or seizure. She has no fever, appears nontoxic, and history does not appear c/w UTI or other infectious source. No meningeal signs or focal deficits. She was able to eat and drink here and feels that her symptoms are due to stress or anxiety and would like to go home. She states she has stress with other residents in her apartment building. She states she is speaking to various people about this, including her PCP and law enforcement. She declined speaking to anybody about this at this time and feels safe to go home. She is hemodynamically stable. We will give a couple tabs of Ativan to go. Advised to follow up with the primary care doctor for re-evaluation. Usual and customary return precautions given prior to discharge. Medical Records Medical records reviewed: Yes I reviewed the patient's medical records. Lab Data Lab results reviewed: Yes I reviewed the patient's lab results. Labs: Laboratory Tests Range/Units 11/02/20 11/02/20 17:46 17:46 WBC (4.4-10.8) 10^3/uL 6.21 RBC (3.93-5.22) 10^6/uL 4.38 Hgb (11.2-15.7) g/dL 12.9 Hct (36.0-46.0) % 39.8 MCV (80-95) fL 90.9 MCH (27.0-33.0) pg 29.5 MCHC (32.0-36.0) % 32.4 RDW (11.7-14.6) % 12.9 Plt Count (130-400) 10^3/uL 171 MPV (8.0-11.0) fL 11.8 H Immature Gran % 0.2 Neutrophils % 49.7 Lymphocytes % 32.4 Monocytes % 13.5 Eosinophils % 3.7 Basophils % 0.5 Nucleated RBC % % 0 Absolute Neutrophils (1.2-6.7) 10^3/uL 3.09 Absolute Lymphocytes (1.2-3.4) 10^3/uL 2.01 Absolute Monocytes (0.1-0.8) 10^3/uL 0.84 H Absolute Eosinophils (0.0-0.7) 10^3/uL 0.23 Absolute Basophils (0.0-0.2) 10^3/uL 0.03 Sodium (136-145) mmol/L 142 Potassium (3.5-5.1) mmol/L 4.2 Chloride (98-107) mmol/L 107 Carbon Dioxide (21.0-32.0) mmol/L 27.0 Anion Gap (3-11) mmol/L 8.0 BUN (7-18) mg/dL 16 Creatinine (0.55-1.02) mg/dL 0.8 Estimated GFR/1.73 m2 (mL/min/1.73m2) >= 60.00 Glucose (74-106) mg/dL 103 Calcium (8.5-10.1) mg/dL 10.0 Magnesium (1.8-2.4) mg/dL 2.1 Total Bilirubin (0.2-1.0) mg/dL 0.2 AST (15-37) U/L 23 ALT (14-59) U/L 33 Alkaline Phosphatase (46-116) U/L 53 Troponin I (<0.06) ng/mL < 0.05 Total Protein (6.4-8.2) g/dL 7.0 Albumin (3.4-5.0) g/dL 3.4 ECG Data Attestation: I personally reviewed and interpreted this ECG (s) as follows: Interpretation: Rate of 63, sinus, no acute ST elevation or depression. HPI General Mode of arrival: EMS. Date/Time Provider Initiated Documentation: 11/02/20 18:02. Limitations to Documentation: no limitations. Information obtained by: patient. HPI Narrative: Patient is a 80-year-old female with a history of anxiety and depression who presents with an episode of shaking in both of her arms that lasted 5 to 10 minutes and then resolved. She states she was sitting in bed when the episode started. She states she had a mild headache but denies any headache at present. She currently denies any symptoms and feels like she wants to go home. She denies any symptoms of chest pain, shortness of breath, abdominal pain, nausea, vomiting during this episode. She denies any known fever or recent illness. Related Data Home Medications Medication Instructions Recorded Confirmed loratadine [Claritin] 10 mg PO DAILY tab-cap 09/13/17 10/20/20 alendronate 70 mg tablet 70 mg PO QWEEK 12/25/17 10/20/20 sertraline 100 mg tablet 100 mg PO DAILY tab 12/25/17 10/20/20 acetaminophen [Tylenol] 650 mg PO Q4H PRN PRN #0 tab 04/24/19 10/20/20 aspirin 81 mg tablet,delayed 81 mg PO DAILY 10/28/19 10/20/20 release levetiracetam 750 mg tablet 750 mg PO BID #180 tab 09/27/20 10/20/20 hydrocortisone 1 applic TOPICAL BID #28.4 g 10/20/20 Previous Rx's Medication Instructions Recorded acetaminophen [Tylenol] 650 mg PO Q4H PRN PRN #0 tab 04/24/19 levetiracetam 750 mg tablet 750 mg PO BID #180 tab 09/27/20 hydrocortisone 1 applic TOPICAL BID #28.4 g 10/20/20 Allergies Allergy/AdvReac Type Severity Reaction Status Date / Time chlorpromazine HCl Allergy Verified 10/20/20 09:18 [From Thorazine] penicillin Allergy Verified 10/20/20 09:18 tree and shrub pollen Allergy Runny, Verified 10/20/20 09:18 itchy eyes, sneezing. General Stated Complaint: Anxiety ANITHA: 3 Review of Systems All systems reviewed & are unremarkable except as noted in HPI and below Constitutional Constitutional: Reports as per HPI, Denies chills and Denies fever(s) Eyes Eyes: Denies blurry vision ENT Ears, Nose, Mouth, and Throat: Denies dizziness, Denies sore throat and Denies throat swelling Cardiovascular Cardiovascular: Denies chest pain and Denies dyspnea Respiratory Respiratory: Denies cough and Denies dyspnea Gastrointestinal Gastrointestinal: Denies abdominal pain, Denies diarrhea and Denies vomiting Genitourinary Genitourinary: Denies hematuria and Denies dysuria Musculoskeletal Musculoskeletal: Denies back pain and Denies numbness Integumentary/Breasts Skin/Breast: Denies lesions and Denies rash Neurologic Neurologic: Denies dizziness, Denies localized weakness and Denies numbness Allergic/Immunologic Allergic/Immunologic: Denies throat swelling FOR[facility], [facility] Medical History (Updated 11/02/20 @ 18:58 by Yoselyn De Los Santos DO) Depression with anxiety Epilepsy (06/09/15) Glaucoma History of pulmonary embolism s/p Eliquis [id number]. Mild cognitive impairment Osteoporosis Surgical History History of carpal tunnel release right History of repair of hiatal hernia S/P cholecystectomy Family History Father Heart disease Mother Breast cancer Social History Smoking/Tobacco Use Status: Never Smoking risk assessment performed?: Yes Alcohol Intake: never Drug use: Never Substance use type: does not use Household members: none Housing: apartment Number of Children: 1 What type of physical activity do you participate in: none Seatbelt use: always Do you feel safe at home: No Do you feel safe in your relationship?: Yes Additional Social history: Believes someone comes in to the night, found things missing. States she has found under garmets cut. Also states lock doesn't work well after fire department broke down door because they thought something was wrong. Exam Const General: cooperative, healthy appearing and no acute distress HENMT Head: normal to inspection Face and sinus: normal facial exam Eyes General: appearance normal, both eyes and all related structures Pupils: PERRL EOM: EOM intact bilaterally Neck Neck: normal visual inspection and No submandibular swelling Lymphatic: no lymphadenopathy noted Chest Chest: normal inspection of the chest and no tenderness Resp Effort & Inspection: normal respiratory effort and able to speak in complete sentences Auscultation: clear to auscultation bilaterally Cardio Rate: regular rate Rhythm: regular rhythm GI Inspection: normal to inspection Palpation: soft, not firm, not rigid and nontender Auscultation: normal bowel sounds Skin General skin exam: no rashes or lesions noted Neuro General: patient alert, patient awake, patient oriented x3, moves all extremities, no meningeal signs and no focal motor deficits Cranial Nerves: CN's II-XI intact bilaterally Cognition: normal cognition Speech: speech normal Motor: muscle tone normal throughout and strength 5/5 throughout Sensory Exam: no sensory deficits noted Extrem General: normal to inspection, full ROM, capillary refill normal, no calf tenderness bilaterally and no edema Other: Bilateral radial pulses intact. Psych Appearance: grossly normal Mental Status: mental status grossly normal Speech and Movement: speech and movement normal Affect: normal affect Course Vital Signs Vital signs: Vital Signs Temperature 97.2 F L 11/02/20 17:27 Pulse 65 11/02/20 17:27 Respiratory Rate 20 11/02/20 17:27 Blood Pressure 156/50 H 11/02/20 17:27 Pulse Oximetry 95 11/02/20 17:27 Temperature 97.2 F L 11/02/20 17:27 Temperature Source Skin 11/02/20 17:27 Pulse 65 11/02/20 17:27 Respiratory Rate 22 11/02/20 17:35 Respiratory Effort Non-Labored 11/02/20 17:35 Respiratory Depth Normal 11/02/20 17:35 Respiratory Pattern Normal 11/02/20 17:35 Blood Pressure 156/50 H 11/02/20 17:27 Blood Pressure Position Sitting 11/02/20 17:27 Pulse Oximetry 95 11/02/20 17:27 Oxygen Delivery Method Room Air 11/02/20 17:27 Oxygen Flow Rate 0 11/02/20 17:27 Pain Level 0 11/02/20 17:27
[2020-11-02 17:53] LABS: Abs Immature Grans 0.01 10^3/uL (0.0-0.06); Absolute Basophil Count 0.03 10^3/uL (0.0-0.2); Absolute Eosinophil Count 0.23 10^3/uL (0.0-0.7); Absolute Lymphocyte Count 2.01 10^3/uL (1.2-3.4); Absolute Monocyte Count 0.84 10^3/uL (0.1-0.8); Absolute Neutrophil Count 3.09 10^3/uL (1.2-6.7); Basophils % 0.5; Eosinophils % 3.7; HCT 39.8 % (36.0-46.0); HGB 12.9 g/dL (11.2-15.7); Immature Grans % 0.2; Lymphocytes % 32.4; MCH 29.5 pg (27.0-33.0); MCHC 32.4 % (32.0-36.0); MCV 90.9 fL (80-95); MPV 11.8 fL (8.0-11.0); Monocytes % 13.5; Neutrophils % 49.7; Nucleated RBC 0 %; Platelet Count 171 10^3/uL (130-400); RBC 4.38 10^6/uL (3.93-5.22); RDW 12.9 % (11.7-14.6); RDW-SD 42.8 fL; WBC 6.21 10^3/uL (4.4-10.8)
[2020-11-02 18:14] LABS: ALT 33 U/L (14-59); AST 23 U/L (15-37); Albumin 3.4 g/dL (3.4-5.0); Alkaline Phosphatase 53 U/L (46-116); BUN 16 mg/dL (7-18); Bilirubin, Total 0.2 mg/dL (0.2-1.0); CREATININE 0.8 mg/dL (0.55-1.02); Chloride 107 mmol/L (98-107); Glucose 103 mg/dL (74-106); Magnesium 2.1 mg/dL (1.8-2.4); Potassium 4.2 mmol/L (3.5-5.1); Sodium 142 mmol/L (136-145)
[2020-11-02 18:15] LABS: Troponin I < 0.05 ng/mL (<0.06)
[2020-11-02] MEDS: LORazepam 0.5 MG TAB 1.5 MG PO (19:23)
== END 2020-11-02 19:33 | disposition home or self-care (01) ==
PROVIDERS: Emergency Provider Physician Assistant; PCP Internal Medicine
DX: R25.1 Tremor, unspecified (principal); F41.8 Other specified anxiety disorders; G40.909 Epilepsy, unspecified, not intractable, without status epilepticus
CPT/HCPCS: 36415; 80053; 93005; 99284; 83735; 84484; 85025; 93010

== ENCOUNTER 2020-11-18 22:38 | Emergency (ER) | payer MEDICARE, OTHER, SELFPAY ==
[2020-11-18 22:55] VITALS: BP 137/58; PULSE 60; RESP 16; TEMP 36.7; O2SAT 94
--- NOTE | 2020-11-18 22:59 | ED.GENADUL_ITS ---
Discharge Plan Disposition Patient Disposition: HOME Condition: Good Discharge Details Clinical Impression: Depression with anxiety Primary Care Provider: Nadya Bland ED Provider: Jai Mistry Meds and New Rx's Prescriptions: Continued alendronate [Fosamax] 70 mg tablet 70 mg PO QWEEK RF: 0 aspirin 81 mg tablet,delayed release (DR/EC) 81 mg PO DAILY RF: 0 levetiracetam 750 mg tablet 750 mg PO BID Qty: 180 RF: 3 loratadine [Claritin] 10 MG tablet 10 mg PO DAILY RF: 0 sertraline 100 mg tablet 100 mg PO DAILY RF: 0 acetaminophen [Tylenol] 325 mg Tablet 650 mg PO Q4H PRN PRNQty: 0 RF: 0 hydrocortisone 1 % cream 1 applic topical BID Qty: 28.4 RF: 0 Changed quetiapine 25 mg tablet 12.5 mg PO HS Qty: 0 RF: 0 Discharge Instructions Instructions: Anxiety (ED) Additional Instructions: You should discuss with your primary care obtaining a referral to mental health to help with stress and anxiety. You should resume the prescribed Seroquel but it is reasonable to take 1/2 tablet at night as opposed to a full tablet if you do not like how it makes you feel the next day. Return to emergency department for neurologic change, chest pain, shortness of breath, other concerns. Referrals: Nadya Bland [Primary Care Provider] - Discharge Data Discharge Date/Time-TO BE ENTERED AT DEPARTURE: 11/19/20 00:00 Medical Decision Making I do not feel this is seizure activity that patient is describing. Seen here previously for same with negative work-up. Responded to Ativan as well as Seroquel but has not liked how she felt in the morning and is not taking. She reports that she throughout the Seroquel previously prescribed even though she reports that it also significantly helped at night. Recommend half dose Seroquel to see if it continues to work and help her sleep but made her less groggy in the morning. Patient agreeable with this. Will contact primary care and follow-up. Given 1 Seroquel 25 mg tablet to take half tab tonight as well as tomorrow night if unable to see PCP. Medical Records Medical records reviewed: Yes I reviewed the patient's medical records. HPI General Mode of arrival: EMS . Date/Time Provider Initiated Documentation: 11/18/20 22:56 . Limitations to Documentation: no limitations . Information obtained by: patient . HPI Narrative: Patient presents to the ED by ambulance after episode of shaking in bilateral upper extremities tonight in bed. Patient seen at the end of October for similar event at which time work-up unremarkable and felt likely due to stress and anxiety. Patient discharged at that time when Ativan to go which she did feel helped but made her very groggy. Patient has followed up with primary care and was prescribed Seroquel to take at night for bed. First couple of nights she took it and actually slept well and felt good. However, she felt groggy in the morning and has stopped taking. Tonight recurrent episodes of bilateral upper extremity shaking without any loss of consciousness, urinary incontinence, tongue biting. She does have history of seizures but report loss of consciousness and lack of recall with seizures. She denies having headache, chest pain, shortness of breath, fever, cough, GI symptoms. Related Data Home Medications Medication Instructions Recorded Confirmed loratadine [Claritin] 10 mg PO DAILY tab-cap 09/13/17 11/18/20 alendronate 70 mg tablet 70 mg PO QWEEK 12/25/17 11/18/20 sertraline 100 mg tablet 100 mg PO DAILY tab 12/25/17 11/18/20 acetaminophen [Tylenol] 650 mg PO Q4H PRN PRN #0 tab 04/24/19 11/18/20 aspirin 81 mg tablet,delayed 81 mg PO DAILY 10/28/19 11/18/20 release levetiracetam 750 mg tablet 750 mg PO BID #180 tab 09/27/20 11/18/20 hydrocortisone 1 applic TOPICAL BID #28.4 g 10/20/20 quetiapine 12.5 mg PO HS #0 tab 11/18/20 11/18/20 Previous Rx's Medication Instructions Recorded acetaminophen [Tylenol] 650 mg PO Q4H PRN PRN #0 tab 04/24/19 levetiracetam 750 mg tablet 750 mg PO BID #180 tab 09/27/20 hydrocortisone 1 applic TOPICAL BID #28.4 g 10/20/20 quetiapine 12.5 mg PO HS #0 tab 11/18/20 Allergies Allergy/AdvReac Type Severity Reaction Status Date / Time chlorpromazine HCl Allergy Verified 11/18/20 22:59 [From Thorazine] penicillin Allergy Verified 11/18/20 22:59 tree and shrub pollen Allergy Runny, Verified 11/18/20 22:59 itchy eyes, sneezing. General Stated Complaint: [employer] ANITHA: 3 Review of Systems Narrative: As documented in HPI otherwise negative as below. Const: no fever, chills, weakness Resp: no cough, SOB, pleuritic pain CV: no CP, diaphoresis, edema, syncope GI: no abdominal pain, nausea, vomiting, diarrhea Neuro: no headache, numbness, focal weakness, confusion PFSH Medical History Depression with anxiety Epilepsy (06/09/15) Glaucoma History of pulmonary embolism s/p Eliquis [id number]. Mild cognitive impairment Osteoporosis Surgical History History of carpal tunnel release right History of repair of hiatal hernia S/P cholecystectomy Family History Father Heart disease Mother Breast cancer Social History Smoking/Tobacco Use Status: Never Smoking risk assessment performed?: Yes Alcohol Intake: never Drug use: Never Substance use type: does not use Household members: none Housing: apartment Number of Children: 1 What type of physical activity do you participate in: none Seatbelt use: always Do you feel safe at home: No Do you feel safe in your relationship?: Yes Additional Social history: Believes someone comes in to the night, found things missing. States she has found under garmets cut. Also states lock doesn't work well after fire department broke down door because they thought something was wrong. Exam Narrative Exam Narrative: Const: WDWN female in NAD. HEENT: NC/AT. Normal facial exam. Neck: Supple. Trachea midline. Lungs: Normal respiratory effort. Lungs are clear. Cor: RRR without murmur/gallop. Neuro: A+O x 3. Normal speech, mentation, gait. Cranial nerves II - XII grossly intact. No gross motor or sensory deficit. Ext: No C/C/E. Skin: Warm and dry without rash. Course Vital Signs Vital signs: Vital Signs Temperature 98.1 F 11/18/20 22:55 Pulse 60 11/18/20 22:55 Respiratory Rate 16 11/18/20 22:55 Blood Pressure 137/58 L 11/18/20 22:55 Pulse Oximetry 94 11/18/20 22:55 Temperature 98.1 F 11/18/20 22:55 Temperature Source Temporal Artery Scan 11/18/20 22:55 Pulse 60 11/18/20 22:55 Respiratory Rate 16 11/18/20 22:55 Respiratory Effort Non-Labored 11/18/20 22:58 Blood Pressure 137/58 L 11/18/20 22:55 Pulse Oximetry 94 11/18/20 22:55 Oxygen Delivery Method Room Air 11/18/20 22:55 Oxygen Flow Rate 0 11/18/20 22:55 Pain Level 0 11/18/20 22:55
[2020-11-18 23:52] VITALS: RESP 16
[2020-11-18] MEDS: QUEtiapine 25 MG TAB PO (23:52)
[2020-11-18 23:55] VITALS: BP 137/58; PULSE 60; RESP 16; TEMP 36.7; O2SAT 94
== END 2020-11-19 | disposition home or self-care (01) ==
PROVIDERS: Emergency Provider Emergency Medicine; PCP Internal Medicine
DX: F41.8 Other specified anxiety disorders (principal)
CPT/HCPCS: 99283

== ENCOUNTER 2020-12-04 07:51 | Emergency (ER) | payer MEDICARE, OTHER, SELFPAY ==
--- NOTE | 2020-12-04 07:45 | RT.EKG_ITS ---
APPROVED REPORT Exam: Resting ECG Reason for Exam: dizzy Patient Location: E HR:53 bpm ECG Measurements Heart Rate 53 AXIS TN 195 P 48 QRSd 96 QRS -14 QT 449 T 24 QTc 421 Conclusion Sinus bradycardia...rate< 60 Physician: Rate 53, intervals normal, sinus bradycardia, inverted T waves in V1, aVR and slight atypi david T wave morphology in lead III, however on review from prior EKG from 11/02/2020 these findings wer e all previously identified then as well. No evidence of STEMI. No evidence of WPW, no evidence of Br ugada syndrome or epsilon wave.
[2020-12-04 07:50] VITALS: BP 179/83; PULSE 54; RESP 18; TEMP 36.5; O2SAT 95
--- NOTE | 2020-12-04 08:00 | DI.CT_ITS ---
Exam(s) CT HEAD WO EXAM: CT HEAD WO CLINICAL HISTORY: dizzy. TECHNIQUE: Imaging Protocol: Axial computed tomography images with coronal and sagittal reformatted images were created and reviewed COMPARISON: No exams were available for comparison FINDINGS: Ventricles and Extra axial spaces: Normal in size and morphology for the patient's age. Hemorrhage: None. Cerebral parenchyma: There are areas of decreased attenuation in the white matter consistent with sma ll vessel ischemic disease. No acute territorial infarct. Midline shift: None. Brainstem/Cerebellum: Normal. Calvarium: Normal. Visualized Paranasal sinuses/Mastoids: Clear. Soft Tissues: Unremarkable. IMPRESSION: No acute intracranial process. RADIATION DOSE DELIVERED: 753.45mGy.cm Total DLP DATA REPOSITORY: All CT scans at this facility are submitted to the National Radiology Data Registry (NRDR) Dose Index Registry (DIR) with the [employer] ([employer]). RADIATION OPTIMIZATION: All CT scans at this facility use at least one of these dose optimization te chniques: automated exposure control; mA and/or kV adjustment per patient size (includes targeted exa ms where dose is matched to clinical indication); or iterative reconstruction.
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
[2020-12-04 08:13] VITALS: BP 158/75
[2020-12-04] MEDS: Normal Saline 500 ML IV (08:19)
[2020-12-04 08:29] LABS: Absolute Basophil Count 0.03 10^3/uL (0.0-0.2); Absolute Eosinophil Count 0.27 10^3/uL (0.0-0.7); Absolute Lymphocyte Count 1.46 10^3/uL (1.2-3.4); Absolute Neutrophil Count 2.58 10^3/uL (1.2-6.7); Basophils % 0.6; Eosinophils % 5.6; HCT 42.8 % (36.0-46.0); HGB 13.8 g/dL (11.2-15.7); Lymphocytes % 30.2; MCHC 32.2 % (32.0-36.0); MCV 89.9 fL (80-95); MPV 11.9 fL (8.0-11.0); Monocytes % 10.3; Neutrophils % 53.3; Nucleated RBC 0 %; Platelet Count 179 10^3/uL (130-400); RBC 4.76 10^6/uL (3.93-5.22); RDW-SD 42.7 fL; WBC 4.84 10^3/uL (4.4-10.8)
[2020-12-04 08:43] VITALS: RESP 18
[2020-12-04 08:46] LABS: ALT 33 U/L (14-59); AST 23 U/L (15-37); Albumin 3.5 g/dL (3.4-5.0); Alkaline Phosphatase 58 U/L (46-116); Anion Gap 6.8 mmol/L (3-11); BUN 14 mg/dL (7-18); Bilirubin, Total 0.3 mg/dL (0.2-1.0); CO2 27.2 mmol/L (21.0-32.0); CREATININE 0.7 mg/dL (0.55-1.02); Calcium 10.1 mg/dL (8.5-10.1); Chloride 106 mmol/L (98-107); Glucose 107 mg/dL (74-106); Potassium 4.1 mmol/L (3.5-5.1); Sodium 140 mmol/L (136-145); Total Protein 7.5 g/dL (6.4-8.2)
[2020-12-04 08:50] LABS: NT-proBNP 179 pg/mL (<300); TSH (W/Ref FT4) 1.65 uIU/mL (0.36-3.74)
[2020-12-04 08:53] LABS: Troponin I < 0.05 ng/mL (<0.06)
--- NOTE | 2020-12-04 09:06 | DI.VRAD_ITS ---
PROCEDURE INFORMATION: Exam: CT Head Without Contrast Exam date and time: 12/04/2020 8:03 AM Age: 80 years old Clinical indication: Dizziness TECHNIQUE: Imaging protocol: Computed tomography of the head without contrast. Radiation optimization: All CT scans at this facility use at least one of these dose optimization techniques: automated exposure control; mA and/or kV adjustment per patient size (includes targeted exams where dose is matched to clinical indication); or iterative reconstruction. COMPARISON: CT HEAD WITHOUT CONTRAST 12/28/2015 9:17 AM FINDINGS: Brain: There is no evidence of acute infarct, mass, shift of midline or parenchymal hemorrhage. Patchy periventricular white matter low attenuation present, a nonspecific finding but likely related to chronic small vessel ischemic change. No extra-axial fluid collection Cerebral ventricles: Moderate dilatation of the ventricular system and sulci diffusely, compatible with volume loss. Paranasal sinuses: Visualized sinuses are unremarkable. No fluid levels. Mastoid air cells: Visualized mastoid air cells are well aerated. Bones/joints: Unremarkable. No acute fracture. Soft tissues: Unremarkable. IMPRESSION: No evidence of acute process. Dictated and Authenticated by: Suellen Yan MD. Ordering:DENISE Simpson MD
[2020-12-04 09:22] LABS: Bilirubin Negative (Negative); Blood Trace-lysed (Negative); Clarity Clear (Clear); Glucose Negative (Negative); Ketones Negative (Negative); Leukocyte Esterase Negative (Negative); Nitrite Negative (Negative); Urobilinogen 0.2 EU/dL (Up TO 0.2)
[2020-12-04 09:28] LABS: Bacteria Rare HPF (Negative); C & S Indicated? No; Casts Negative LPF (Negative); Crystals Negative HPF (Negative); Epithelial Cells Moderate HPF (Negative); Mucus Negative (Negative); WBC 0-2 HPF (0-5)
[2020-12-04 09:56] VITALS: BP 160/83; PULSE 61; RESP 18; TEMP 36.8; O2SAT 96
--- NOTE | 2020-12-04 16:39 | NUR.NOTE ---
referral to cm for someone to do a med check at home.
--- NOTE | 2021-01-05 13:29 | CMPROGNOTE_ITS ---
- If Service Date Differs Date of service: 12/06/20 Time of Service: 13:31 Care Management Progress Note Lizbeth is seen in the ED for lightheadedness. ED provider requests that CM arrange med checks to ensure Lizbeth is taking her medication appropriately. CM speaks with Mckenna Sparks, Lizbeth's [facility] business case analyst, to inquire if they may be able to assist with med checks. Mckenna advises that Lizbeth has a homemaker through Home Health and has [facility] volunteers who come to her home on a regular basis. Mckenna states that [facility] and staff have tried to help Lizbeth with her medication but Lizbeth has refused the assistance. Mckenna shares she is in the process of completing a petition for guardianship in the hopes Lizbeth will be assigned a public guardian.
== END 2020-12-04 09:57 | disposition home or self-care (01) ==
PROVIDERS: Emergency Provider Student in an Organized Health Care Education/Training Program; PCP Internal Medicine
DX: R42 Dizziness and giddiness (principal); F32.9 Major depressive disorder, single episode, unspecified
CPT/HCPCS: 36415; 80053; 93005; 96360; 99284; 70450; 81003; 81015; 83880; 84443; 84484; 85025; 93010

== ENCOUNTER 2020-12-27 16:46 | Emergency (ER) | payer MEDICARE, SELFPAY ==
[2020-12-27 16:45] VITALS: BP 162/62; PULSE 65; RESP 18; TEMP 36.5; O2SAT 98
[2020-12-27 17:04] VITALS: BP 158/72; PULSE 66; O2SAT 95
[2020-12-27 17:05] VITALS: O2SAT 94
[2020-12-27 17:10] VITALS: O2SAT 95
--- NOTE | 2020-12-27 17:12 | ED.GENADUL_ITS ---
Discharge Plan Disposition Patient Disposition: HOME Condition: Stable Discharge Details Clinical Impression: Depression with anxiety Primary Care Provider: Nadya Bland ED Provider: Clarita Booth Home Meds and New Rx's Prescriptions: Continued alendronate [Fosamax] 70 mg tablet 70 mg PO QWEEK RF: 0 aspirin 81 mg tablet,delayed release (DR/EC) 81 mg PO DAILY RF: 0 levetiracetam 750 mg tablet 750 mg PO BID Qty: 180 RF: 3 loratadine [Claritin] 10 MG tablet 10 mg PO DAILY RF: 0 sertraline 100 mg tablet 100 mg PO DAILY RF: 0 acetaminophen [Tylenol] 325 mg Tablet 650 mg PO Q4H PRN PRNQty: 0 RF: 0 hydrocortisone 1 % cream 1 applic topical BID Qty: 28.4 RF: 0 Discontinued quetiapine 25 mg tablet 12.5 mg PO HS Qty: 0 RF: 0 Discharge Instructions Instructions: Anxiety (ED) Additional Instructions: Please encourage water intake. Please hold on your Seroquel for now and discuss with your primary care tomorrow. Please try to reduce your anxiety as much as possible as well as her stress. Please continue with your counseling. [facility]. If you have any new or worsening symptoms to seek care urgently once again. Otherwise, please call your primary care tomorrow to discuss medications and symptoms. Referrals: Nadya Bland [Primary Care Provider] - Discharge Data Discharge Date/Time-TO BE ENTERED AT DEPARTURE: 12/27/20 19:21 Medical Decision Making Patient is a pleasant 80-year-old female presenting today with chief complaint of fatigue and paranoia. She states that she has had paranoia and difficulty sleeping for the past several weeks. Reports that she was recently put on a new medication for sleep. On chart review, this appears to correlate with when she was started on Seroquel. She reports that while taking this she is very fatigued during the day. States that when she attempted to take a nap today her neighbors were being quite loud and kept her awake. She reports that this has been an ongoing issue since beginning the medication. She initially reported headaches to nursing staff but denies this currently. No visual changes. No nausea or vomiting. No recent fevers. States that she has felt slightly paranoid, in particular has been feeling that people are following her when she is driving. She denies any hallucinations. States that the people that she hears talking at home are truly talking at home and not a auditory hallucination. She reports it was when she was very fatigued today she felt like her head was shaking back and forth as if she was saying no but she is not trying to do this. She denies any loss of consciousness. Patient does have a history of seizures but states that she was not having a seizure. On exam, patient appears nontoxic. She is neurologically intact at this time. She is alert and oriented x3. I have appreciate any trauma. Patient denies suicidal or homicidal ideation. No thoughts of self-harm. Reviewed patient's chart. She was seen here recently for the same. At that time, patient did undergo imaging. Patient not reporting any new concerns, I do not feel that repeat imaging is warranted at this time. Will obtain baseline labs. Follow-up Patient does report that she has held her Seroquel intermittently and has found that this does help with her symptoms throughout the day, in particular for significant fatigue and increased stress Labs reviewed. No leukocytosis. No significant abnormality on CMP. Urinalysis concerning for small amount of blood, trace leukocyte esterase and bacteria. Few epithelial cells. I discussed the findings with the patient. She reports that she had UTI for the past and does not feel like the symptoms are related at all. Is not having any urinary symptoms. She prefers to watch and wait appr [facility] which she do feel is appropriate in this case. 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 If this comes back significant for urinary tract infection, we will contact the patient and begin antibiotics. She feels safe for discharge home. Patient typically travels the [facility]. Return precautions were discussed. I did advise that she hold her quetiapine, which she began taking recently, it seems to correlate with many of her symptoms in particular, her fatigue. she hold off on the dosing tonight and discuss further with her primary care tomorrow. All of her questions and concerns were addressed and she is in agreement with this plan. HPI General Mode of arrival: EMS . Date/Time Provider Initiated Documentation: 12/27/20 17:11 . Limitations to Documentation: no limitations . Information obtained by: patient, EMS, RN notes reviewed and old records reviewed . History of Present Illness 80 year old F presents to the emergency department with the chief complaint of fatigue, anxiety, described as moderate and similar to prior episodes, Quality is described as other (denies any pain), Patient started experiencing this day(s) and it has been constant. other things that improve symptom(s), (holding on medication) Medication worsens symptoms . Patient notes denies confusion, chest pain, diaphoresis, fever/chills, headaches, loss of appetite, nausea/vomiting, shortness of breath and syncope. Patient did receive the following treatments prior to arrival, none Related Data Home Medications Medication Instructions Recorded Confirmed loratadine [Claritin] 10 mg PO DAILY tab-cap 09/13/17 12/27/20 alendronate 70 mg tablet 70 mg PO QWEEK 12/25/17 12/27/20 sertraline 100 mg tablet 100 mg PO DAILY tab 12/25/17 12/27/20 acetaminophen [Tylenol] 650 mg PO Q4H PRN PRN #0 tab 04/24/19 12/27/20 aspirin 81 mg tablet,delayed 81 mg PO DAILY 10/28/19 12/27/20 release levetiracetam 750 mg tablet 750 mg PO BID #180 tab 09/27/20 12/27/20 hydrocortisone 1 applic TOPICAL BID #28.4 g 10/20/20 12/27/20 Previous Rx's Medication Instructions Recorded acetaminophen [Tylenol] 650 mg PO Q4H PRN PRN #0 tab 04/24/19 levetiracetam 750 mg tablet 750 mg PO BID #180 tab 09/27/20 hydrocortisone 1 applic TOPICAL BID #28.4 g 10/20/20 Allergies Allergy/AdvReac Type Severity Reaction Status Date / Time chlorpromazine HCl Allergy Verified 12/27/20 16:54 [From Thorazine] penicillin Allergy Verified 12/27/20 16:54 tree and shrub pollen Allergy Runny, Verified 12/27/20 16:54 itchy eyes, sneezing. General Stated Complaint: Headache ANITHA: 3 Review of Systems Constitutional Constitutional: Reports as per HPI, Denies chills, Reports fatigue, Denies fever(s), Denies headache(s) and Denies weakness Eyes Eyes: Denies change in vision ENT Ears, Nose, Mouth, and Throat: Denies headache(s) Cardiovascular Cardiovascular: Reports as per HPI, Denies chest pain, Denies lightheadedness, Denies dyspnea and Denies dyspnea on exertion Respiratory Respiratory: Reports as per HPI, Denies cough, Denies dyspnea and Denies dyspnea on exertion Gastrointestinal Gastrointestinal: Reports as per HPI, Denies abdominal pain, Denies change in bowel habits, Denies nausea and Denies vomiting Musculoskeletal Musculoskeletal: Denies abnormal gait Integumentary/Breasts Skin/Breast: Reports as per HPI and Denies rash Neurologic Neurologic: Denies abnormal movements, Denies abnormal speech, Denies abnormal gait, Denies headache(s), Denies paresthesias and Denies weakness Endocrine Endocrine: Reports fatigue [facility] Medical History (Updated 12/27/20 @ 19:01 by YADIEL Pichardo) Depression with anxiety Epilepsy (06/09/15) Glaucoma History of pulmonary embolism s/p Eliquis [id number]. Mild cognitive impairment Osteoporosis Surgical History History of carpal tunnel release right History of repair of hiatal hernia S/P cholecystectomy Family History Father Heart disease Mother Breast cancer Social History Smoking/Tobacco Use Status: Never Smoking risk assessment performed?: Yes Alcohol Intake: never Drug use: Never Substance use type: does not use Household members: none Housing: apartment Number of Children: 1 What type of physical activity do you participate in: none Seatbelt use: always Do you feel safe at home: No Do you feel safe in your relationship?: Yes Exam Const General: cooperative, healthy appearing, comfortable, no acute distress, well developed, well groomed and anxious Nutritional Appearance: average body habitus and well nourished Orientation: alert and awake Eyes General: appearance normal, both eyes and all related structures Visual Keller: normal visual keller by confrontation Alignment and Position: alignment normal Pupils: PERRL and normal by confrontation Resp Effort & Inspection: normal respiratory effort, able to speak in complete sentences and no respiratory distress Auscultation: clear to auscultation bilaterally, no rales, no rhonchi and no wheezes Cardio Rate: regular rate Rhythm: regular rhythm Heart Sounds: S1 normal and S2 normal GI Inspection: normal to inspection Palpation: soft, no guarding and nontender Skin General skin exam: no rashes or lesions noted Trauma: no lacerations or abrasions Neuro General: patient alert and patient awake Cranial Nerves: CN's II-XI intact bilaterally Cognition: normal cognition Speech: speech normal Gait: normal gait Motor: muscle tone normal throughout, strength 5/5 throughout, no pronator drift, no movement abnormalities noted and no fasciculations Coordination: [id number] test normal and [id number] test normal Course Vital Signs Vital signs: Vital Signs Temperature 36.5 C 12/27/20 16:45 Pulse 65 12/27/20 16:45 Respiratory Rate 18 12/27/20 16:45 Blood Pressure 162/62 H 12/27/20 16:45 Pulse Oximetry 98 12/27/20 16:45 Temperature 36.5 C 12/27/20 16:45 Temperature Source Skin 12/27/20 16:45 Pulse 65 12/27/20 16:45 Respiratory Rate 18 12/27/20 16:45 Respiratory Effort 12/27/20 16:51 Blood Pressure 162/62 H 12/27/20 16:45 Blood Pressure Position Supine 12/27/20 16:45 Pulse Oximetry 98 12/27/20 16:45 Oxygen Delivery Method Room Air 12/27/20 16:45 Oxygen Flow Rate 0 12/27/20 16:45 Pain Level 0 12/27/20 16:45
[2020-12-27 18:21] LABS: HCT 44.4 % (36.0-46.0); MCH 28.8 pg (27.0-33.0); MCHC 31.5 % (32.0-36.0); MCV 91.4 fL (80-95); MPV 12.2 fL (8.0-11.0); Platelet Count 138 10^3/uL (130-400); RBC 4.86 10^6/uL (3.93-5.22); RDW 13.3 % (11.7-14.6); RDW-SD 45.1 fL; WBC 7.09 10^3/uL (4.4-10.8)
[2020-12-27 18:27] LABS: Bilirubin Negative (Negative); Blood Small (Negative); Clarity Cloudy (Clear); Glucose Negative (Negative); Ketones Negative (Negative); Leukocyte Esterase Trace (Negative); Nitrite Negative (Negative); Specific Gravity 1.015 (1.005-1.025); Urobilinogen 0.2 EU/dL (Up TO 0.2)
[2020-12-27 18:30] LABS: ALT 33 U/L (14-59); AST 27 U/L (15-37); Albumin 3.9 g/dL (3.4-5.0); Alkaline Phosphatase 71 U/L (46-116); Anion Gap 2.4 mmol/L (3-11); BUN 16 mg/dL (7-18); Bilirubin, Total 0.2 mg/dL (0.2-1.0); CO2 28.6 mmol/L (21.0-32.0); CREATININE 0.7 mg/dL (0.55-1.02); Calcium 10.4 mg/dL (8.5-10.1); Chloride 107 mmol/L (98-107); Glucose 104 mg/dL (74-106); Potassium 4.2 mmol/L (3.5-5.1); Sodium 138 mmol/L (136-145); Total Protein 8.2 g/dL (6.4-8.2)
[2020-12-27 18:40] LABS: Bacteria Many HPF (Negative); C & S Indicated? Yes; Casts Negative LPF (Negative); Crystals Negative HPF (Negative); Epithelial Cells Few HPF (Negative); Mucus Negative (Negative)
== END 2020-12-27 19:21 | disposition home or self-care (01) ==
PROVIDERS: Emergency Provider Physician Assistant; PCP Internal Medicine
DX: F32.9 Major depressive disorder, single episode, unspecified (principal); F41.9 Anxiety disorder, unspecified; R53.83 Other fatigue
CPT/HCPCS: 36415; 80053; 85027; 99283; 81003; 81015; 87086

== ENCOUNTER 2021-02-03 14:37 | Emergency (ER) | payer MEDICARE, OTHER, SELFPAY ==
[2021-02-03 14:38] VITALS: BP 193/66; PULSE 75; RESP 18; TEMP 36.5; O2SAT 94
--- NOTE | 2021-02-03 14:49 | ED.GENADUL_ITS ---
Discharge Plan Disposition Patient Disposition: HOME Condition: Stable Discharge Details Clinical Impression: Dizziness Primary Care Provider: Nadya Bland ED Provider: Ander Reyna Home Meds and New Rx's Prescriptions: New meclizine 25 mg tablet 25 mg PO TID PRN (Reason: dizziness) Qty: 30 RF: 0 Continued alendronate [Fosamax] 70 mg tablet 70 mg PO QWEEK RF: 0 aspirin 81 mg tablet,delayed release (DR/EC) 81 mg PO DAILY RF: 0 levetiracetam 750 mg tablet 750 mg PO BID Qty: 180 RF: 3 loratadine [Claritin] 10 MG tablet 10 mg PO DAILY RF: 0 sertraline 100 mg tablet 100 mg PO DAILY RF: 0 acetaminophen [Tylenol] 325 mg Tablet 650 mg PO Q4H PRN PRNQty: 0 RF: 0 hydrocortisone 1 % cream 1 applic topical BID Qty: 28.4 RF: 0 quetiapine 25 mg tablet 25 mg PO HS RF: 0 No Action ivermectin 3 mg tablet 3 mg PO RF: 0 Discharge Instructions Instructions: Vertigo (ED) Additional Instructions: your blood work and exam did not show concerning findings at this time follow up with your primary care provider within a week if you have severe worsening symptoms, feel more ill or chest pain return to the emergency department Medical Decision Making 80 yo female with hx of mild cognitive impairment, prior PE no longer on blood thinners, epilepsy on keppra, who comes in with ems for an episode of feeling the room spinning. She states she was feelin well and went to lay down for a nap which she normally does at this time and turned her head causing her to feel the room was spinning so she called ems. She states it lasted several minutes and now has no symptoms. Denies chest pain, dyspnea, headache, neck pain, fevers, chills, abdominal pain, or feeling like she may pass out. She is currently caox4, has no focal motor or sensation deficits, CN II-XII intact. Her symptoms seem most consistent for bppv given how brief the episode was, less likely meniere or vestibular neuronitis. She has a reassuring HINTS exam and has reassuring neuro exam and denies any focal weakness or other neurological symptoms to make central vertigo likely. She has had a ct of the head recently that was unremarkable and do not feel repeat ct indicated especially with her being asymptomatic now and having no deficits. Will check for possible electrolyte abnormality and reassess. labs benign and she feels well, ambulating on her own without assistance. Suspect bppv, will provide meclizine as needed and advised to f/u with pcp and return precautions Differential Diagnosis Differential Diagnosis: bppv, vestibular neuronitis, meniere Lab Data Lab results reviewed: Yes I reviewed the patient's lab results. HPI General Mode of arrival: EMS . Date/Time Provider Initiated Documentation: 02/03/21 14:38 . Limitations to Documentation: no limitations . Information obtained by: patient . History of Present Illness 80 year old F presents to the emergency department with the chief complaint of dizziness, described as moderate, Patient started experiencing this hour(s) (1) and it has been now resolved. No relieving factors improve symptom(s), No exacerbating factors reported . Patient notes no other symptoms.. Patient did receive the following treatments prior to arrival, none Related Data Home Medications Medication Instructions Recorded Confirmed loratadine [Claritin] 10 mg PO DAILY tab-cap 09/13/17 02/03/21 alendronate 70 mg tablet 70 mg PO QWEEK 12/25/17 02/03/21 sertraline 100 mg tablet 100 mg PO DAILY tab 12/25/17 02/03/21 acetaminophen [Tylenol] 650 mg PO Q4H PRN PRN #0 tab 04/24/19 12/27/20 aspirin 81 mg tablet,delayed 81 mg PO DAILY 10/28/19 02/03/21 release levetiracetam 750 mg tablet 750 mg PO BID #180 tab 09/27/20 02/03/21 hydrocortisone 1 applic TOPICAL BID #28.4 g 10/20/20 02/03/21 ivermectin 3 mg PO 02/03/21 meclizine 25 mg PO TID PRN #30 tab 02/03/21 quetiapine 25 mg PO HS 02/03/21 02/03/21 Previous Rx's Medication Instructions Recorded acetaminophen [Tylenol] 650 mg PO Q4H PRN PRN #0 tab 04/24/19 levetiracetam 750 mg tablet 750 mg PO BID #180 tab 09/27/20 hydrocortisone 1 applic TOPICAL BID #28.4 g 10/20/20 meclizine 25 mg PO TID PRN #30 tab 02/03/21 Allergies Allergy/AdvReac Type Severity Reaction Status Date / Time chlorpromazine HCl Allergy Verified 02/03/21 14:53 [From Thorazine] penicillin Allergy Verified 02/03/21 14:53 tree and shrub pollen Allergy Runny, Verified 02/03/21 14:53 itchy eyes, sneezing. General Stated Complaint: Dizzy/Sync ANITHA: 3 Review of Systems All systems reviewed & are unremarkable except as noted in HPI and below Constitutional Constitutional: Denies chills, Denies fever(s) and Denies weakness Cardiovascular Cardiovascular: Denies chest pain and Denies dyspnea Respiratory Respiratory: Denies cough and Denies dyspnea Gastrointestinal Gastrointestinal: Denies abdominal pain, Denies nausea and Denies vomiting Musculoskeletal Musculoskeletal: Denies joint swelling Neurologic Neurologic: Denies weakness [facility] Medical History (Updated 02/03/21 @ 16:16 by Ander Reyna MD) Depression with anxiety Epilepsy (06/09/15) Glaucoma History of pulmonary embolism s/p Eliquis [id number]. Mild cognitive impairment Osteoporosis Surgical History History of carpal tunnel release right History of repair of hiatal hernia S/P cholecystectomy Family History Father Heart disease Mother Breast cancer Social History Smoking/Tobacco Use Status: Never Smoking risk assessment performed?: Yes Alcohol Intake: never Drug use: Never Substance use type: does not use Household members: none Housing: apartment Number of Children: 1 What type of physical activity do you participate in: none Seatbelt use: always Do you feel safe at home: No Do you feel safe in your relationship?: Yes Exam Const General: no acute distress Orientation: alert HENMT Head: normal to inspection Ears: external ears normal General nose exam: external nose normal Mouth: moist mucous membranes Eyes General: appearance normal, both eyes and all related structures Neck Neck: normal visual inspection Resp Effort & Inspection: normal respiratory effort and able to speak in complete sentences Cardio Rate: regular rate Skin General skin exam: no rashes or lesions noted Neuro General: patient alert and patient oriented x3 Extrem General: normal to inspection Psych Mental Status: mental status grossly normal Course Vital Signs Vital signs: Vital Signs Temperature 36.5 C 02/03/21 14:38 Pulse 75 02/03/21 14:38 Respiratory Rate 18 02/03/21 14:38 Blood Pressure 193/66 H 02/03/21 14:38 Pulse Oximetry 94 02/03/21 14:38 Temperature 36.5 C 02/03/21 14:38 Pulse 75 02/03/21 14:38 Respiratory Rate 18 02/03/21 14:38 Respiratory Effort 02/03/21 14:44 Blood Pressure 193/66 H 02/03/21 14:38 Pulse Oximetry 94 02/03/21 14:38 Oxygen Delivery Method Room Air 02/03/21 14:38 Oxygen Flow Rate 0 02/03/21 14:38 Pain Level 0 02/03/21 14:38
[2021-02-03 15:08] LABS: Abs Immature Grans 0.01 10^3/uL (0.0-0.06); Absolute Basophil Count 0.03 10^3/uL (0.0-0.2); Absolute Eosinophil Count 0.24 10^3/uL (0.0-0.7); Absolute Monocyte Count 0.76 10^3/uL (0.1-0.8); Absolute Neutrophil Count 3.71 10^3/uL (1.2-6.7); Basophils % 0.4; Eosinophils % 3.4; HCT 41.1 % (36.0-46.0); HGB 13.3 g/dL (11.2-15.7); Immature Grans % 0.1; Lymphocytes % 32.6; MCHC 32.4 % (32.0-36.0); MCV 89.5 fL (80-95); MPV 12.3 fL (8.0-11.0); Monocytes % 10.8; Neutrophils % 52.7; Nucleated RBC 0 %; Platelet Count 182 10^3/uL (130-400); RBC 4.59 10^6/uL (3.93-5.22); RDW 13.5 % (11.7-14.6); RDW-SD 43.9 fL; WBC 7.05 10^3/uL (4.4-10.8)
[2021-02-03] MEDS: Meclizine 25 MG TAB PO (15:08)
[2021-02-03 15:09] VITALS: RESP 16
[2021-02-03 15:26] LABS: ALT 27 U/L (14-59); AST 22 U/L (15-37); Albumin 3.7 g/dL (3.4-5.0); Alkaline Phosphatase 67 U/L (46-116); Anion Gap 8.7 mmol/L (3-11); BUN 14 mg/dL (7-18); Bilirubin, Total 0.2 mg/dL (0.2-1.0); CO2 26.3 mmol/L (21.0-32.0); CREATININE 0.8 mg/dL (0.55-1.02); Chloride 105 mmol/L (98-107); Glucose 124 mg/dL (74-106); Magnesium 2.1 mg/dL (1.8-2.4); Potassium 3.9 mmol/L (3.5-5.1); Sodium 140 mmol/L (136-145); Total Protein 7.7 g/dL (6.4-8.2)
[2021-02-03 16:08] VITALS: BP 155/61; PULSE 62; RESP 15; TEMP 36.4; O2SAT 97
== END 2021-02-03 16:30 | disposition home or self-care (01) ==
PROVIDERS: Emergency Provider Emergency Medicine; PCP Internal Medicine
DX: R42 Dizziness and giddiness (principal)
CPT/HCPCS: 36415; 80053; 99283; 83735; 85025

== ENCOUNTER 2021-02-18 11:49 | Emergency (ER) | payer MEDICARE, OTHER, SELFPAY ==
[2021-02-18 11:49] VITALS: BP 142/80; PULSE 60; RESP 16; TEMP 36.6; O2SAT 98
--- NOTE | 2021-02-18 12:45 | RT.EKG_ITS ---
APPROVED REPORT Exam: Resting ECG Reason for Exam: chest pain Patient Location: E HR:58 bpm ECG Measurements Heart Rate 58 AXIS PA 209 P 42 QRSd 91 QRS -21 QT 421 T 30 QTc 413 Conclusion Sinus bradycardia...rate< 60 Left ventricular hypertrophy...multiple voltage criteria
[2021-02-18 14:03] LABS: Abs Immature Grans 0.01 10^3/uL (0.0-0.06); Absolute Basophil Count 0.04 10^3/uL (0.0-0.2); Absolute Eosinophil Count 0.18 10^3/uL (0.0-0.7); Absolute Lymphocyte Count 1.45 10^3/uL (1.2-3.4); Absolute Monocyte Count 0.79 10^3/uL (0.1-0.8); Absolute Neutrophil Count 3.06 10^3/uL (1.2-6.7); Basophils % 0.7; Eosinophils % 3.3; HCT 42.6 % (36.0-46.0); HGB 13.5 g/dL (11.2-15.7); Immature Grans % 0.2; Lymphocytes % 26.2; MCH 28.6 pg (27.0-33.0); MCHC 31.7 % (32.0-36.0); MCV 90.3 fL (80-95); MPV 11.9 fL (8.0-11.0); Monocytes % 14.3; Neutrophils % 55.3; Nucleated RBC 0 %; Platelet Count 197 10^3/uL (130-400); RBC 4.72 10^6/uL (3.93-5.22); RDW 13.2 % (11.7-14.6); RDW-SD 43.6 fL; WBC 5.53 10^3/uL (4.4-10.8)
[2021-02-18 14:22] LABS: ALT 34 U/L (14-59); AST 28 U/L (15-37); Albumin 3.9 g/dL (3.4-5.0); Alkaline Phosphatase 68 U/L (46-116); Anion Gap 3.9 mmol/L (3-11); BUN 16 mg/dL (7-18); Bilirubin, Total 0.3 mg/dL (0.2-1.0); CO2 30.1 mmol/L (21.0-32.0); CREATININE 0.8 mg/dL (0.55-1.02); Calcium 10.1 mg/dL (8.5-10.1); Chloride 107 mmol/L (98-107); Glucose 98 mg/dL (74-106); Magnesium 2.3 mg/dL (1.8-2.4); Potassium 4.2 mmol/L (3.5-5.1); Sodium 141 mmol/L (136-145); Total Protein 7.8 g/dL (6.4-8.2); Troponin I < 0.05 ng/mL (<0.06)
[2021-02-18] MEDS: Omnipaque 350 MG/ML 100 ML BTL IJ (15:16)
[2021-02-18] MEDS: Normal Saline - Diluent 50 ML VIAL IV (15:18)
[2021-02-18] MEDS: Normal Saline Flush 10 ML SYR IVP (15:19)
--- NOTE | 2021-02-18 15:19 | DI.CT_ITS ---
Exam(s) CT BRAIN NECK CTA EXAM: CT BRAIN NECK CTA CLINICAL HISTORY: dizziness. TECHNIQUE: Imaging Protocol: Axial CT angiography was performed with multi-slice acquisition and mu lti-planar and/or 3D reconstructions. CONTRAST MATERIAL: Intravenous: Omnipaque 350 Contrast volume:structured data in ml COMPARISON: CT CHEST FOR PULMONARY EMBOLUS from 04/28/[address] ABDOMEN PELVIS W from 02/01/2020 FINDINGS: CT angiography of the cervical cranial region was performed according to the usual protocol with intr avenous infusion of 85 cc of Omnipaque 350.. Initial noncontrast scanning of the head is unremarkable except for generalized cerebral atrophy.. Visualized lung apices are clear. Visualized portions of thoracic aorta and pulmonary arterial circul ation are unremarkable. There is no evidence of a cervical mass or adenopathy. There is a a right lo be thyroid low-attenuation mass measuring up to about 3.5 cm in diameter, ultrasound evaluation recom mended. The tracheal laryngeal structures appear intact. The common, internal, and external carotid arteries are within normal limits in the cervical region w ith no evidence of aneurysm, stenosis, or dissection. The vertebral arteries are unremarkable in appearance in the cervical region with no evidence of aneu rysm, stenosis, or dissection. Intracranial portions of the internal carotid arteries appear normal with no evidence of aneurysm, st enosis, or dissection. Intracranial vertebral arteries and basilar artery appear normal with no evidence of aneurysm, stenos is or dissection. No aneurysm identified in the region of the [id number]. The anterior, middle, and posterior cer ebral arteries and major branches appear intact with no evidence of aneurysm, stenosis, or dissection . No enhancing brain lesion identified on 5 minutes delayed images.. IMPRESSION: Negative CT angiography of the cervical cranial region. 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 Incidental Findings RADIATION DOSE DELIVERED: 2,047.97mGy.cmTotal DLP 2,047.97mGy.cm Total DLP CTDIvol DATA REPOSITORY: All CT scans at this facility are submitted to the National Radiology Data Registry (NRDR) Dose Index Registry (DIR) with the [employer] ([employer]). RADIATION OPTIMIZATION: All CT scans at this facility use at least one of these dose optimization te chniques: automated exposure control; mA and/or kV adjustment per patient size (includes targeted exa ms where dose is matched to clinical indication); or iterative reconstruction.
[2021-02-18 15:48] LABS: Clarity Clear (Clear); Specific Gravity 1.015 (1.005-1.025)
[2021-02-18 15:49] LABS: Bilirubin Negative (Negative); Blood Trace-intact (Negative); Glucose Negative (Negative); Ketones Negative (Negative); Leukocyte Esterase Negative (Negative); Nitrite Negative (Negative); Urobilinogen 0.2 EU/dL (Up TO 0.2); pH 6.5 (5-8)
[2021-02-18 16:00] LABS: Bacteria Rare HPF (Negative); C & S Indicated? No; Casts Negative LPF (Negative); Crystals Negative HPF (Negative); Epithelial Cells Moderate HPF (Negative); Mucus Negative (Negative); WBC 0-2 HPF (0-5)
[2021-02-18 16:07] VITALS: BP 140/74; PULSE 58; TEMP 36.3; O2SAT 97
--- NOTE | 2021-02-18 16:08 | ED.GENADUL_ITS ---
Discharge Plan Disposition Patient Disposition: HOME Condition: Stable Discharge Details Clinical Impression: Fall, Adverse effect of drug or medicament, Thyroid nodule Primary Care Provider: Nadya Bland ED Provider: Jessica David Home Meds and New Rx's Prescriptions: Continued alendronate [Fosamax] 70 mg tablet 70 mg PO QWEEK RF: 0 aspirin 81 mg tablet,delayed release (DR/EC) 81 mg PO DAILY RF: 0 levetiracetam 750 mg tablet 750 mg PO BID Qty: 180 RF: 3 loratadine [Claritin] 10 MG tablet 10 mg PO DAILY RF: 0 sertraline 100 mg tablet 100 mg PO DAILY RF: 0 acetaminophen [Tylenol] 325 mg Tablet 650 mg PO Q4H PRN PRNQty: 0 RF: 0 hydrocortisone 1 % cream 1 applic topical BID Qty: 28.4 RF: 0 quetiapine 25 mg tablet 25 mg PO HS RF: 0 ivermectin 3 mg tablet 3 mg PO RF: 0 meclizine 25 mg tablet 25 mg PO TID PRN (Reason: dizziness) Qty: 30 RF: 0 Discharge Instructions Additional Instructions: Please follow-up with your primary care physician on Sunday, I recommend discontinuing the medications that you are taking for sleep as I think there contributing to your symptoms Your labs look good but you do have a nodule on your thyroid, please have this checked by your primary care doctor at your next visit, I recommend reassessment on Sunday Please return earlier should you have new or worsening symptoms Referrals: Nadya Bland [Primary Care Provider] - Discharge Data Discharge Date/Time-TO BE ENTERED AT DEPARTURE: 02/18/21 16:15 Medical Decision Making Patient is alert, oriented, of decisional capacity, neurologically intact CTA head and cervical spine does not show evidence of acute abnormality, specifically no evidence of intracranial pathology Diagnostic labs including CBC, CMP without acute abnormality Patient is afebrile and nontoxic, she has a nonfocal neurological exam and feels comfortable with discharge home Patient is otherwise symptomatically improved, she is concerned that her new medications may be contributing to her symptoms, may very well may, she is instructed to call her doctor on Sunday and to discontinue these medications temporarily She is given low threshold to return should she have new or worsening complaints Her urinalysis showed 3-5 blood cells, she will need to have the prior primary care physician Her CAT scan does show an incidental finding of a thyroid nodule which she will be rechecked additionally Return precautions discussed and patient expressed understanding Recheck by primary care physician in 24 to 48 hours recommended Medical Records Medical records reviewed: Yes I reviewed the patient's medical records. Lab Data Lab results reviewed: Yes I reviewed the patient's lab results. ECG Data Attestation: I personally reviewed and interpreted this ECG (s) as follows: Prior ECG tracings: available for review HPI General Mode of arrival: ambulatory . Date/Time Provider Initiated Documentation: 02/18/21 12:38 . Limitations to Documentation: no limitations . Information obtained by: patient . HPI Narrative: This 80-year-old female with history of report of confusion by patient. Apparently neighbors called secondary to patient acting confused in her yard. Patient states that she tripped last night and fell out of a chair, she denies having or had or loss of consciousness but states that when she woke this morning she was very sleepy and is concerned she may have head injury. She also states she was started on 2 medications for sleep approximately 2 weeks ago and has been tired that time. She reports some mild dizziness. She denies any current pain complaints. She denies any strength or sensation change. She denies any change in speech. She denies any weakness at this time. Related Data Home Medications Medication Instructions Recorded Confirmed loratadine [Claritin] 10 mg PO DAILY tab-cap 09/13/17 02/03/21 alendronate 70 mg tablet 70 mg PO QWEEK 12/25/17 02/03/21 sertraline 100 mg tablet 100 mg PO DAILY tab 12/25/17 02/03/21 acetaminophen [Tylenol] 650 mg PO Q4H PRN PRN #0 tab 04/24/19 12/27/20 aspirin 81 mg tablet,delayed 81 mg PO DAILY 10/28/19 02/03/21 release levetiracetam 750 mg tablet 750 mg PO BID #180 tab 09/27/20 02/03/21 hydrocortisone 1 applic TOPICAL BID #28.4 g 10/20/20 02/03/21 ivermectin 3 mg PO 02/03/21 meclizine 25 mg PO TID PRN #30 tab 02/03/21 quetiapine 25 mg PO HS 10/28/21 10/28/21 Previous Rx's Medication Instructions Recorded acetaminophen [Tylenol] 650 mg PO Q4H PRN PRN #0 tab 04/24/19 levetiracetam 750 mg tablet 750 mg PO BID #180 tab 09/27/20 hydrocortisone 1 applic TOPICAL BID #28.4 g 10/20/20 meclizine 25 mg PO TID PRN #30 tab 02/03/21 Allergies Allergy/AdvReac Type Severity Reaction Status Date / Time chlorpromazine HCl Allergy Verified 02/03/21 14:53 [From Thorazine] penicillin Allergy Verified 02/03/21 14:53 tree and shrub pollen Allergy Runny, Verified 02/03/21 14:53 itchy eyes, sneezing. General Stated Complaint: AMS/LOC ANITHA: 3 Review of Systems All systems reviewed & are unremarkable except as noted in HPI and below PFSH Medical History (Updated 02/18/21 @ 15:59 by YADIEL Lazo) Depression with anxiety Epilepsy (06/09/15) Glaucoma History of pulmonary embolism s/p Eliquis [id number]. Mild cognitive impairment Osteoporosis Surgical History History of carpal tunnel release right History of repair of hiatal hernia S/P cholecystectomy Family History Father Heart disease Mother Breast cancer Social History Smoking/Tobacco Use Status: Never Smoking risk assessment performed?: Yes Alcohol Intake: never Drug use: Never Substance use type: does not use Household members: none Housing: apartment Number of Children: 1 What type of physical activity do you participate in: none Seatbelt use: always Do you feel safe at home: No Do you feel safe in your relationship?: Yes Exam Const General: cooperative, comfortable and no acute distress HENMT Head: normal to inspection Other: No hemotympanum, no visible evidence of trauma Eyes Pupils: PERRL EOM: No nystagmus Other: Extraocular muscles intact, no evidence of nystagmus Neck Other: No carotid bruit Resp Effort & Inspection: normal respiratory effort Auscultation: clear to auscultation bilaterally Cardio Rate: regular rate Rhythm: regular rhythm GI Other: Nontender abdominal exam Skin General skin exam: no rashes or lesions noted Neuro General: patient alert and patient oriented x3 Cranial Nerves: CN's II-XI intact bilaterally, PERRL, tongue midline and no nystagmus Cognition: normal cognition Speech: speech normal Gait: normal gait and not ataxic Motor: muscle tone normal throughout and strength 5/5 throughout Sensory Exam: no sensory deficits noted Other: Negative [id number], negative pronator drift, ambulatory steady gait Extrem Other: Neurovascularly intact, no visible evidence of trauma Course Vital Signs Vital signs: Vital Signs Temperature 36.6 C 02/18/21 11:49 Pulse 60 02/18/21 11:49 Respiratory Rate 16 02/18/21 11:49 Blood Pressure 142/80 H 02/18/21 11:49 Pulse Oximetry 98 02/18/21 11:49 Temperature 36.6 C 02/18/21 11:49 Temperature Source Skin 02/18/21 11:49 Pulse 60 02/18/21 11:49 Respiratory Rate 16 02/18/21 11:49 Respiratory Effort 02/18/21 11:54 Blood Pressure 142/80 H 02/18/21 11:49 Blood Pressure Position Sitting 02/18/21 11:49 Pulse Oximetry 98 02/18/21 11:49 Oxygen Delivery Method Room Air 02/18/21 11:49 Oxygen Flow Rate 0 02/18/21 11:49 Pain Level 0 02/18/21 11:49 Lab/Test Results Lab/Test Results: Laboratory Tests Range/Units 02/18/21 02/18/21 02/18/21 12:46 13:56 13:56 WBC (4.4-10.8) 10^3/uL 5.53 RBC (3.93-5.22) 10^6/uL 4.72 Hgb (11.2-15.7) g/dL 13.5 Hct (36.0-46.0) % 42.6 MCV (80-95) fL 90.3 MCH (27.0-33.0) pg 28.6 MCHC (32.0-36.0) % 31.7 L RDW (11.7-14.6) % 13.2 Plt Count (130-400) 10^3/uL 197 MPV (8.0-11.0) fL 11.9 H Immature Gran % 0.2 Neutrophils % 55.3 Lymphocytes % 26.2 Monocytes % 14.3 Eosinophils % 3.3 Basophils % 0.7 Nucleated RBC % % 0 Absolute Neutrophils (1.2-6.7) 10^3/uL 3.06 Absolute Lymphocytes (1.2-3.4) 10^3/uL 1.45 Absolute Monocytes (0.1-0.8) 10^3/uL 0.79 Absolute Eosinophils (0.0-0.7) 10^3/uL 0.18 Absolute Basophils (0.0-0.2) 10^3/uL 0.04 Sodium (136-145) mmol/L 141 Potassium (3.5-5.1) mmol/L 4.2 Chloride (98-107) mmol/L 107 Carbon Dioxide (21.0-32.0) mmol/L 30.1 Anion Gap (3-11) mmol/L 3.9 BUN (7-18) mg/dL 16 Creatinine (0.55-1.02) mg/dL 0.8 Estimated GFR/1.73 m2 (mL/min/1.73m2) >= 60.00 Glucose (74-106) mg/dL 98 Calcium (8.5-10.1) mg/dL 10.1 Magnesium Cancelled 2.3 Total Bilirubin (0.2-1.0) mg/dL 0.3 AST (15-37) U/L 28 ALT (14-59) U/L 34 Alkaline Phosphatase (46-116) U/L 68 Troponin I (<0.06) ng/mL < 0.05 Total Protein (6.4-8.2) g/dL 7.8 Albumin (3.4-5.0) g/dL 3.9 Urine Color (Yellow) Urine Clarity (Clear) Urine pH (5-8) Ur Specific [place] (1.005-1.025) Urine Protein (Negative) mg/dL Urine Ketones (Negative) mg/dL Urine Blood (Negative) Urine Nitrite (Negative) Urine Bilirubin (Negative) Urine Urobilinogen (Up TO 0.2) EU/dL Ur Leukocyte Esterase (Negative) Urine RBC (0-2) HPF Urine WBC (0-5) HPF Ur Epithelial Cells (Negative) HPF Urine Crystals (Negative) HPF Urine Bacteria (Negative) HPF Urine Casts (Negative) LPF Urine Mucus (Negative) Urine Other (Negative) Ur Culture Indicated? Urine Glucose (Negative) mg/dL Range/Units 02/18/21 15:30 WBC (4.4-10.8) 10^3/uL RBC (3.93-5.22) 10^6/uL Hgb (11.2-15.7) g/dL Hct (36.0-46.0) % MCV (80-95) fL MCH (27.0-33.0) pg MCHC (32.0-36.0) % RDW (11.7-14.6) % Plt Count (130-400) 10^3/uL MPV (8.0-11.0) fL Immature Gran % Neutrophils % Lymphocytes % Monocytes % Eosinophils % Basophils % Nucleated RBC % % Absolute Neutrophils (1.2-6.7) 10^3/uL Absolute Lymphocytes (1.2-3.4) 10^3/uL Absolute Monocytes (0.1-0.8) 10^3/uL Absolute Eosinophils (0.0-0.7) 10^3/uL Absolute Basophils (0.0-0.2) 10^3/uL Sodium (136-145) mmol/L Potassium (3.5-5.1) mmol/L Chloride (98-107) mmol/L Carbon Dioxide (21.0-32.0) mmol/L Anion Gap (3-11) mmol/L BUN (7-18) mg/dL Creatinine (0.55-1.02) mg/dL Estimated GFR/1.73 m2 (mL/min/1.73m2) Glucose (74-106) mg/dL Calcium (8.5-10.1) mg/dL Magnesium Total Bilirubin (0.2-1.0) mg/dL AST (15-37) U/L ALT (14-59) U/L Alkaline Phosphatase (46-116) U/L Troponin I (<0.06) ng/mL Total Protein (6.4-8.2) g/dL Albumin (3.4-5.0) g/dL Urine Color (Yellow) Yellow Urine Clarity (Clear) Clear Urine pH (5-8) 6.5 Ur Specific [place] (1.005-1.025) 1.015 Urine Protein (Negative) mg/dL Negative Urine Ketones (Negative) mg/dL Negative Urine Blood (Negative) Trace-intact H Urine Nitrite (Negative) Negative Urine Bilirubin (Negative) Negative Urine Urobilinogen (Up TO 0.2) EU/dL 0.2 Ur Leukocyte Esterase (Negative) Negative Urine RBC (0-2) HPF 3-5 H Urine WBC (0-5) HPF 0-2 Ur Epithelial Cells (Negative) HPF Moderate Urine Crystals (Negative) HPF Negative Urine Bacteria (Negative) HPF Rare Urine Casts (Negative) LPF Negative Urine Mucus (Negative) Negative Urine Other (Negative) Ur Culture Indicated? No Urine Glucose (Negative) mg/dL Negative
[2021-02-18 16:11] VITALS: RESP 18
== END 2021-02-18 16:15 | disposition home or self-care (01) ==
PROVIDERS: Emergency Provider Physician Assistant; PCP Internal Medicine
DX: R41.0 Disorientation, unspecified (principal); R53.83 Other fatigue; R42 Dizziness and giddiness; T50.905A Adverse effect of unspecified drugs, medicaments and biological substances, initial encounter; E04.1 Nontoxic single thyroid nodule
CPT/HCPCS: 70496; 70498; 80053; 93005; 99285; 81003; 81015; 83735; 84484; 85025; 93010; 99284; J3490

== ENCOUNTER 2021-03-02 13:04 | Emergency (ER) | payer MEDICARE, OTHER, SELFPAY ==
[2021-03-02 13:07] VITALS: BP 135/61; PULSE 63; RESP 18; TEMP 36.7; O2SAT 98
--- NOTE | 2021-03-02 13:23 | ED.GENADUL_ITS ---
Discharge Plan Disposition Patient Disposition: HOME Condition: Stable Discharge Details Clinical Impression: Depression with anxiety Primary Care Provider: Nadya Bland ED Provider: Tray Mercado Home Meds and New Rx's Prescriptions: Continued aspirin 81 mg tablet,delayed release (DR/EC) 81 mg PO DAILY RF: 0 levetiracetam 750 mg tablet 750 mg PO BID Qty: 180 RF: 3 sertraline 100 mg tablet 100 mg PO DAILY RF: 0 acetaminophen [Tylenol] 325 mg Tablet 650 mg PO Q4H PRN PRNQty: 0 RF: 0 hydrocortisone 1 % cream 1 applic topical BID Qty: 28.4 RF: 0 quetiapine 25 mg tablet 25 mg PO HS RF: 0 Discharge Instructions Instructions: Anxiety (ED) Additional Instructions: Medical screening examination has been completed. Unfortunately the [facility] cannot perform the intake this evening but plans to do the intake tomorrow at 9:30 AM. In the meantime please watch for new or worsening symptoms and return to the ER for any concerns. Medical Decision Making 80-year-old female presents to the ER with her care team for medical screening evaluation for placement at the [facility]. Contacted [facility], they do in fact have a bed, request a rapid Covid test, Keppra level, urinalysis and EKG. They do understand that our Keppra level is a send out and this will not return immediately. Patient without any acute medical concerns or complaints EKG obtained, no acute abnormalities that would inhibit placement at [facility]. Urine dip with small blood, negative nitrate, leuk esterase. Awaiting urine dip. Keppra level pending Covid pending. I was informed by our critical care nurse, Jessica, that she was contacted by the [facility] and unfortunately they may not have any bed availability. Awaiting the Covid test and will fax down the laboratory values and evaluation. Urine sample negative nitrate and leuk esterase. 5-10 white cells with a few epithelials. Culture pending. Will not initially treat for UTI as there may be a component of contamination and the patient is asymptomatic I was informed by our care management team that the [facility] can now not take her this evening instead we will plan to take her at 930 tomorrow morning. I discussed this with the patient's care team. They are comfortable discharge now and will go for their intake tomorrow morning. Encouraged to return to the ER for new or worsening symptoms. At the time of discharge, Covid test is pending Medical Records Medical records reviewed: Yes I reviewed the patient's medical records. Lab Data Lab results reviewed: Yes I reviewed the patient's lab results. Labs: 03/02/21 14:55 Urine - Reflex from Ua Urine Culture - Pending Laboratory Tests Range/Units 03/02/21 03/02/21 14:55 15:00 Urine Color (Yellow) Yellow Urine Clarity (Clear) Clear Urine pH (5-8) 6.0 Ur Specific [place] (1.005-1.025) 1.025 Urine Protein (Negative) mg/dL Negative Urine Ketones (Negative) mg/dL Negative Urine Blood (Negative) Small H Urine Nitrite (Negative) Negative Urine Bilirubin (Negative) Negative Urine Urobilinogen (Up TO 0.2) EU/dL 0.2 Ur Leukocyte Esterase (Negative) Negative Urine RBC (0-2) HPF 0-2 Urine WBC (0-5) HPF 5-10 Ur Epithelial Cells (Negative) HPF Few Urine Crystals (Negative) HPF Negative Urine Bacteria (Negative) HPF Moderate Urine Casts (Negative) LPF Negative Urine Mucus (Negative) Negative Ur Culture Indicated? Yes Urine Glucose (Negative) mg/dL Negative COVID-19 Source Nasal/Nares ECG Data Attestation: I personally reviewed and interpreted this ECG (s) as follows: Interpretation: Please see official report by Dr. Mike. Sinus bradycardia, ventricular rate of 54. Prolonged LA interval of 212. No STEMI HPI General Mode of arrival: ambulatory . Date/Time Provider Initiated Documentation: 03/02/21 13:07 . Limitations to Documentation: no limitations . Information obtained by: patient (And manager pet ) . HPI Narrative: This is a 80-year-old female presenting to the ER with her director ambulatory requesting medical clearance for admission to [facility]. They were contacted earlier today, a bed is available, and the patient is presenting to the ER for evaluation so she can go directly there. She admits to increased stress and behavioral outburst but denies any depression, SI, HI. She reports that she feels safe. Patient has a past medical history that includes mild cognitive impairment, epilepsy and does take Keppra daily. She reports that her medications were changed a couple weeks ago but she has been compliant with them since that time. She denies recent illness or trauma and has no acute medical concerns or complaints. We were able to contact the [facility] and they do in fact have a bed, request a rapid Covid test, Keppra level, urinalysis and EKG. Once this is completed simply fax the information down and they will accept the patient. Related Data Home Medications Medication Instructions Recorded Confirmed sertraline 100 mg tablet 100 mg PO DAILY tab 12/25/17 03/02/21 acetaminophen [Tylenol] 650 mg PO Q4H PRN PRN #0 tab 04/24/19 03/02/21 aspirin 81 mg tablet,delayed 81 mg PO DAILY 10/28/19 03/02/21 release levetiracetam 750 mg tablet 750 mg PO BID #180 tab 09/27/20 03/02/21 hydrocortisone 1 applic TOPICAL BID #28.4 g 10/20/20 03/02/21 quetiapine 25 mg PO HS 02/03/21 03/02/21 Previous Rx's Medication Instructions Recorded acetaminophen [Tylenol] 650 mg PO Q4H PRN PRN #0 tab 04/24/19 levetiracetam 750 mg tablet 750 mg PO BID #180 tab 09/27/20 hydrocortisone 1 applic TOPICAL BID #28.4 g 10/20/20 Allergies Allergy/AdvReac Type Severity Reaction Status Date / Time chlorpromazine HCl Allergy Verified 03/02/21 13:08 [From Thorazine] penicillin Allergy Verified 03/02/21 13:08 tree and shrub pollen Allergy Runny, Verified 03/02/21 13:08 itchy eyes, sneezing. General Stated Complaint: GenMedical ANITHA: 4 Review of Systems Constitutional Constitutional: Denies fever(s) and Denies headache(s) ENT Ears, Nose, Mouth, and Throat: Denies headache(s) Cardiovascular Cardiovascular: Denies chest pain and Denies dyspnea Respiratory Respiratory: Denies cough and Denies dyspnea Gastrointestinal Gastrointestinal: Denies abdominal pain, Denies nausea and Denies vomiting Genitourinary Genitourinary: Denies dysuria Musculoskeletal Musculoskeletal: Denies back pain Integumentary/Breasts Skin/Breast: Denies rash Neurologic Neurologic: Denies headache(s) Psychiatric Psychiatric: Reports anxiety, Reports depression, Reports mood swings, Denies homicidal ideation and Denies suicidal ideation [facility] Active Problem List (Updated 03/02/21 @ 16:05 by YADIEL Wood) Malaise (Acute) Rash (Acute) Episode of shaking (Acute) Encounter for medical assessment (Acute) Lightheaded (Acute) Dizziness (Acute) Fall (Acute) Adverse effect of drug or medicament (Acute) Thyroid nodule (Acute) Ankle fracture (Acute) Discharge planning issues (Acute) DVT prophylaxis (Acute) Closed bimalleolar fracture of right ankle (Acute 04/16/19) History of pulmonary embolism (Chronic) Osteoporosis (Chronic) Mild cognitive impairment (Chronic) Glaucoma (Chronic) Depression with anxiety (Chronic) Epilepsy (Acute 06/09/15) Surgical History History of carpal tunnel release right History of repair of hiatal hernia S/P cholecystectomy Family History Father Heart disease Mother Breast cancer Social History Smoking/Tobacco Use Status: Never Smoking risk assessment performed?: Yes Alcohol Intake: never Drug use: Never Substance use type: does not use Household members: none Housing: apartment Number of Children: 1 What type of physical activity do you participate in: none Seatbelt use: always Do you feel safe at home: Yes Do you feel safe in your relationship?: Yes Exam Const General: cooperative, healthy appearing, comfortable and no acute distress Orientation: alert, awake and oriented x3 HENMT Head: normal to inspection, normocephalic and atraumatic Face and sinus: normal facial exam Mouth: moist mucous membranes Eyes General: appearance normal, both eyes and all related structures Conjunctivae: conjunctivae normal Neck Neck: normal visual inspection, trachea midline and supple Resp Effort & Inspection: normal respiratory effort and able to speak in complete sentences Auscultation: clear to auscultation bilaterally Cardio Rate: regular rate Rhythm: regular rhythm GI Palpation: soft and nontender Skin General skin exam: no rashes or lesions noted Neuro General: patient alert, patient awake, patient oriented x3, moves all extremities and no focal motor deficits Cognition: normal cognition Speech: speech normal Gait: normal gait Sensory Exam: no sensory deficits noted Psych Appearance: grossly normal Mental Status: mental status grossly normal Course Vital Signs Vital signs: Vital Signs Temperature 36.7 C 03/02/21 13:07 Pulse 63 03/02/21 13:07 Respiratory Rate 18 03/02/21 13:07 Blood Pressure 135/61 03/02/21 13:07 Pulse Oximetry 98 03/02/21 13:07 Temperature 36.7 C 03/02/21 13:07 Temperature Source Tympanic 03/02/21 13:07 Pulse 63 03/02/21 13:07 Respiratory Rate 18 03/02/21 13:07 Respiratory Effort Non-Labored 03/02/21 13:10 Blood Pressure 135/61 03/02/21 13:07 Pulse Oximetry 98 03/02/21 13:07 Oxygen Delivery Method Room Air 03/02/21 13:07 Oxygen Flow Rate 0 03/02/21 13:07 Pain Level 0 03/02/21 13:07
--- NOTE | 2021-03-02 13:30 | RT.EKG_ITS ---
APPROVED REPORT Exam: Resting ECG Reason for Exam: Medical clearance for [facility] Patient Location: E HR:54 bpm ECG Measurements Heart Rate 54 AXIS NJ 218 P 49 QRSd 88 QRS -15 QT 419 T 23 QTc 397 Conclusion Sinus bradycardia...rate< 60 Borderline prolonged NJ interval...NJ >212, V-rate 50- 90
[2021-03-02 14:58] LABS: Bilirubin Negative (Negative); Blood Small (Negative); Clarity Clear (Clear); Glucose Negative (Negative); Ketones Negative (Negative); Leukocyte Esterase Negative (Negative); Nitrite Negative (Negative); Specific Gravity 1.025 (1.005-1.025); Urobilinogen 0.2 EU/dL (Up TO 0.2)
[2021-03-02 15:12] LABS: Source Nasal/Nares
[2021-03-02 15:45] LABS: Bacteria Moderate HPF (Negative); Epithelial Cells Few HPF (Negative); RBC 0-2 HPF (0-2)
[2021-03-02 15:46] LABS: C & S Indicated? Yes; Casts Negative LPF (Negative); Crystals Negative HPF (Negative); Mucus Negative (Negative)
[2021-03-02 16:29] LABS: COVID-19 PCR Negative (Negative)
[2021-03-03 16:40] LABS: Levetiracetam 17.2 mcg/mL
== END 2021-03-02 16:31 | disposition home or self-care (01) ==
PROVIDERS: Emergency Provider Physician Assistant; PCP Internal Medicine
DX: F32.A Depression, unspecified (principal); F41.9 Anxiety disorder, unspecified; R31.9 Hematuria, unspecified; Z20.822 Contact with and (suspected) exposure to COVID-19
CPT/HCPCS: 36415; 87635; 93005; 99283; 80177; 81003; 81015; 87086; 93010

== ENCOUNTER 2023-10-26 08:09 | Day surgery (SDC) | payer MEDICARE, MEDICAID, SELFPAY ==
[2023-10-26 09:44] VITALS: BP 129/64; PULSE 52; RESP 16; TEMP 36.5; O2SAT 95
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
[2023-10-26] MEDS: Tetracaine 0.5% 4 ML BTL OS (10:28)
[2023-10-26] MEDS: Povidone-Iodine Ophth 30 ML BTL (10:29)
[2023-10-26 10:33] VITALS: BMI 33.5
[2023-10-26] MEDS: Balanced Salt Soln.-PLUS 500 ML BAG OP (10:37)
[2023-10-26] MEDS: Lidocaine 1% Pres-Free 5 ML VIAL (10:38)
[2023-10-26] MEDS: Duovisc Viscoelastic System EACH 1 EACH (10:39)
[2023-10-26] MEDS: Trypan Blue 0.06% 0.5 ML SYR (10:44)
--- NOTE | 2023-10-26 11:07 | W.PM.DSUDISC ---
Date of service: 10/26/23 Time of Service: 11:07 Discharge Plan Disposition Patient Disposition: Home Discharge Details Attending Provider: Corey Guillen Primary Care Provider: Adri Klein Home Meds and New Rx's Prescriptions: No Action aspirin 81 mg tablet,delayed release (DR/EC) 81 mg PO DAILY levetiracetam 750 mg tablet 750 mg PO BID Qty: 180 3RF sertraline 100 mg tablet 200 mg PO DAILY Patient Comments: 10/23/17 PER PT. TAKES 100 MG QD. 09/13/17 PT. STATES SHE TAKES 100 MH QD. acetaminophen [Tylenol] 325 mg Tablet 650 mg PO Q4H PRN PRNQty: 0 0RF hydrocortisone 1 % cream 1 applic topical BID Qty: 28.4 0RF quetiapine 25 mg tablet 25 mg PO HS Patient Comments: TAKE 1 TABLET BY MOUTH EVERY DAY AT BEDTIME donepezil 10 mg tablet 10 mg PO DAILY mirabegron [Myrbetriq] 50 mg tablet extended release 24 hr 50 mg PO DAILY olanzapine 20 mg tablet 20 mg PO DAILY Discharge Instructions Stand Alone Forms: DSU Post-Op CataractElda (DSU) Discharge Orders Discharge Orders: Discharge Order (Routine); Ordered 10/26/23 Ordered By: Corey Guillen DS: Diagnosis Discharge Diagnosis (1) Cortical age-related cataract, left eye: Status: Resolved (2) Nuclear age-related cataract, left eye: Status: Resolved
--- NOTE | 2023-10-26 11:08 | ROE_ITS ---
Date of service: 10/26/23 Time of Service: 11:08 Operative Note Operative Note DATE OF PROCEDURE: 10/26/23 PRE-OP DIAGNOSIS: Nuclear/cortical cataract, left eye POST-OP DIAGNOSIS: same PROCEDURE: Cataract extraction using phacoemulsification with intraocular lens implant, left eye Pupillary dilation and iris stabilization with pupillary expansion device SURGEON: Corey Guillen ANESTHESIA TYPE: Local By Surgeon and MAC Refer to Anesthesia Record PATHOLOGY: none sent COMPLICATIONS: None Patient was transported to: same day Patient's condition: stable Implants: Nicolas Clareon [id number] Indications: Progressive decreased vision due to cataract, left eye Procedure Description: CATARACT SURGERY OPERATIVE REPORT PREOPERATIVE DIAGNOSIS: Nuclear/cortical cataract, left eye Poorly dilating pupil, left eye POSTOPERATIVE DIAGNOSIS: Same OPERATION: Cataract extraction using phacoemulsification with posterior chamber intraocular lens implant, left eye. Pupillary dilation and iris stabilization with pupillary expansion device IOL: IOL Financial Adviser/Model: Nicolas Clareon [id number] IOL Power: + 17.5 diopters IOL Serial Number: [id number] Optic Diameter: 6.0mm Haptic/Overall Diameter: 13.0mm PHACO INFO: Nicolas LogoGraburion Vision System with OZil and Active Fluidics Cumulative Dispersed Energy (CDE): 10.58 seconds SURGEON: Corey Guillen MD, IBIS ANESTHESIA: Monitored Anesthesia Care (MAC), with local sub-tenon's anesthetic infiltration COMPLICATIONS: None SPECIMENS: None INDICATIONS FOR PROCEDURE: The patient is an 83-year-old lady with history of diminished visual acuity in her left eye secondary to the development of nuclear/cortical cataract. She also has a poorly dilating pupil, undilated pupil size 2 mm, dilated pupil size 3.5 mm.. The option of cataract surgery was offered to the patient and feels she felt she was symptomatic of that she wished to proceed. PROCEDURE: The correct surgical eye was identified and marked as the left eye and the pupil was dilated in the preoperative area using mydriatics and cycloplegics. The dilated pupil size was 3.5 mm. The patient elected to proceed without oral sedation. The patient was brought to the operating room where cardiopulmonary monitoring was instituted and surgical time-out was performed, confirming the correct operative eye and IOL power. Topical anesthesia was administered and ophthalmic povidone-iodine 5% was instilled into the conjunctival fornices. The helena-ocular area was prepped with Betadine 10% solution and draped in the usual sterile fashion for intraocular surgery, including an aperture drape. A Tegaderm transparent film dressing was cut in half and used to cover the lashes and lid margins. Care was taken to sequester the lashes and lid margins under the Tegaderm dressing. A lid speculum was placed between the lids of the operative eye and the Nicolas LuxOR Revalia operating microscope was maneuvered into position. Mary scissors were then used to make a conjunctival buttonhole approximately 6mm posterior to the limbus in the inferonasal quadrant. Blunt dissection was carried out to expose bare sclera, and a blunt-tipped sub-tenon?s anesthesia cannula was introduced and passed posteriorly along the globe where non- preserved plain lidocaine was injected into posterior sub-Tenon?s space. A sideport knife was used to make a paracentesis port. VisionBlue was injected into the anterior chamber and painted over the anterior lens capsule and under the pupillary margin, and is allowed to sit for 30 seconds. Intraocular phenylephrine/lidocaine was injected into the anterior chamber. The anterior chamber was then filled with viscoelastic. A keratome knife was used construct a two-plane clear corneal tunnel extending 2.0mm into clear cornea. A 6.25 mm pupillary expansion device was inserted into the pupillary space and engaged with the Koogler hook. A flap was raised on the anterior capsule and capsulorhexis forceps were used to complete a continuous curvilinear capsulorhexis of 5.0 mm. Balanced salt solution was then used to perform cortical cleaving hydrodissection and nuclear hydrodelineation until the lens could be freely rotated within the capsular bag. The lens nucleus was then disassembled and removed within the capsular bag and iris plane using phacoemulsification. Residual cortical material was removed using the irrigation/aspiration handpiece. The posterior capsule was carefully polished to remove as much residual lens epithelial cells as safely possible. The capsular bag was then inflated and the anterior chamber deepened with viscoelastic. The lens implant described above was inserted into the capsular bag using the Nicolas Autonome Injector. A Kuglen hook was used to dial the IOL into position. Pupillary expansion device was then removed in the reverse order of its insertion. Residual viscoelastic was then removed first from posterior to the IOL, then from the anterior chamber using the I/A handpiece. The lens implant was noted to center nicely within the capsular bag. The incisions were stromally hydrated, and the anterior chamber was reformed using BSS. Then 0.5cc of moxifloxacin 1.0mg/ml were injected into the capsular bag and anterior chamber. The incisions were checked with a Weck spear and found to be secure. Several drops of ophthalmic povidone-iodine 5% were then applied to the eye followed by two drops of combination steroid/NSAID/antibiotic solution. The drapes were removed and a clear plastic protective eye shield was placed over the eye. The patient was then returned to Same Day Surgery in stable condition.
[2023-10-26 11:10] VITALS: BP 139/73; PULSE 52; RESP 16; TEMP 36.2; O2SAT 95
--- NOTE | 2023-10-26 11:24 | W.ANESPOSTOP ---
Postoperative Evaluation Date, Time and Location Date Performed: 10/26/23 Time Performed: 11:24 Patient Location: Day Surgery Unit Vital Signs Most Recent Imported Vital Signs: Most Recent Vital Signs Temp Pulse Resp BP Pulse Ox 36.2 C L 52 L 16 139/73 95 10/26/23 11:10 10/26/23 11:10 10/26/23 11:10 10/26/23 11:10 10/26/23 11:10 Pain Score Most Recent Pain Score: Most Recent Pain Score Pain Level 0 10/26/23 11:10 Assessment Mental Status: Awake (Alert & Oriented to Patient Baseline) Airway and Respiratory Function: Patent airway with normal (patient baseline) respiratory exam Cardiovascular Function: Hemodynamically Stable Hydration Status: Adequately Hydrated Nausea & Vomiting: No Nausea or Vomiting Pain: Pt. Denies Any Pain Peripheral Nerve Block: Patient did not receive a nerve block
--- NOTE | 2023-10-26 14:14 | SUR.PHASEI ---
10:00am pt falling asleep during intake, unable to obtain information from pt re: medications taken. Pt accompanies by Hipolito, the electric pile driver operator from [facility]. This RN called [facility] and spoke with Alpesh Scott RN for Ph1 Admission Assessment information. Pee NAVA
== END 2023-10-26 11:39 | disposition home or self-care (01) ==
PROVIDERS: PCP Legal Medicine; Visit Provider Ophthalmology
PROC: (CPT 66982; principal; 2023-10-26 10:45)
DX: H25.012 Cortical age-related cataract, left eye (principal); H25.12 Age-related nuclear cataract, left eye
CPT/HCPCS: 66982; 00123; V2632; J2003